=== PATIENT | female | born 1960 | race Caucasian/White ===

== ENCOUNTER 2018-08-07 18:04 | Observation (INO) | payer BC, OTHER ==
[~2018-08-07] VITALS: Ht 170.2 cm; Wt 99.9 kg
--- OUTSIDE RECORDS SUMMARY | 2018-08-07 18:10 | XMS REPORT | Continuity of Care Document ---
Author Author [facility] Organization [facility] Address Unknown Phone Unavailable Care Team Providers Care Extension Service Supervisor Name Role Phone Daniel Wilson MD PCP Unavailable Allergies, Adverse Reactions, Alerts Substance Reaction Severity Status Penicillins rash Unknown Active codeine rash Unknown Active Medications Medication Instructions Dosage Effective Dates (start - stop) Status Comments lisinopril 10 mg tablet take 1 tablet by oral route every day 10 MG 2015 - Active Estrace 0.01% (0.1 mg/gram) vaginal cream insert (1G) by vaginal route 3 times every week 1 G - Active Lumigan 0.01 % eye drops - Active metformin 500 mg tablet take 1 tablet by oral route 2 times every day with morning and evening meals 500 MG - Active Vitamin D2 50,000 unit capsule take 1 capsule by oral route every week 59166 UNITS - Active Taztia XT 240 mg capsule,extended release take 1 capsule by oral route every day 240 MG - Active paroxetine 10 mg tablet take 1 tablet by oral route every day 10 MG 2014 - Active lutein 6 mg tablet - Active Walter Base pellet - Active Problems Condition Effective Dates (start - stop) Clinical Status Abnormal Vaginal Pap, LSIL - Pap Smear Screening, Vagina Abnormal Vaginal Pap, LSIL Abnormal Vaginal Pap, LSIL Abnormal Vaginal Pap, LSIL Abnormal Vaginal Pap, LSIL Pap Smear Screening, Cervix - Hypertension - Active Abnormal Pap, ASCUS - Active Type II Diabetes Active Depression Active Procedures Procedure Date Office/outpatient visit,est, mod Specimen handling/transport Results Test Name Date and Time Measure Units Reference Range Abnormal Flag Comments Panel Description: Cytology report of Cervical or vaginal smear or scraping Cyto stain.thin prep 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 1Patient: MATTY [id number] DATE: 11/14/2017RECEIVED DATE: 11/14/2017REPORTED DATE: 11/18/2017 10:26GYN CYTOLOGY REPORT - HIGH RISK HPV (Final) Page 1 of 1ACCESSION : [id number] DESCRIPTION:.HIGH RISK HPVHIGH RISK HPV RESULT:HIGH RISK HPV NOT DETECTED:Findings: NEGATIVE for the High-Risk HPV types: 16, 18, 31, 33, 35, 39, 45, 51, 52, 56, 58, 59, 66, 68.Testing was performed at [facility], [address] [place] [address] CLIA # [id number].[facility] Cyt[id number] [place] [address] Laboratory Director: RAULITO Deal. [facility] Patient: GUSTAVO CRESPO. Requested by: RCIKEY MCKNIGHT,[facility]-ADHESIVE BONDING MACHINE OPERATOR [id number] [place] [address]- Panel Description: Cytology report of Cervical or vaginal smear or scraping Cyto stain.thin prep ADHESIVE BONDING MACHINE OPERATOR 11:10:00 See Note Patient: GUSTAVO CRESPO : [id number]. Page 1 of 1SPECIMEN DATE: 11/14/2017RECEIVED DATE: 11/14/2017REPORTED DATE: 11/25/2017 11:40GYN CYTOLOGY REPORT (Final) Page 1 of 1ACCESSION: [id number]/RESULTS:ATYPICAL SQUAMOUS CELLS OF UNDETERMINED SIGNIFICANCE (ASC-US).SPECIMEN ADEQUACY:Satisfactory for Evaluation.SPECIMEN DESCRIPTION:LIQUID BASE VAGINAL PAP. WITH AUTOMATED SCREENING (THINPREP IMAGING SYSTEM) AND MANUAL REVIEW.(High Risk HPV testing has been ordered on this specimen.)CLINICAL INFORMATION:Menopause: YHysterectomy : YHormonal [place]: HRTPrev.normal: 11/13/2016 -HPVScreened by: IRENE.Signed out by:.< Sign Out Dr. Siegel>.JOSESITO FULLER MD ph: [phone]. 11/25/2017 11:40. [facility] [address] [facility]. [facility] [id number] Cytology [id number] [facility] [place], [place] [phone] Director: Michelle Waggoner M.D.. 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 [address], [place], [id number], [place]. tel:[phone] Referring Provider: Antonina Rosario [address] [place] [address], [address]. tel:[phone] [facility], [address], [id number], [place] tel: [phone] [facility] Abnormal Vaginal Pap, LSILPap Smear Screening, Cervix Roxanna Hernandez. [address] [place], [address], [place]. tel:[phone] Referring Provider: Antonina Rosario [address] [place] [address], [address]. tel:[phone] [facility], [address] [place] [address], [id number], [place] tel: [phone] [facility] Abnormal Vaginal Pap, LSILAbnormal Vaginal Pap, LSILAbnormal Vaginal Pap, LSILAbnormal Vaginal Pap, LSIL Roxanna Hernandez. [address] [place], [place], [address], [place]. tel:[phone] Referring Provider: Antonina Rosario, [address] [place], [address]. tel:[phone] [facility], [address], [place], [place], [address], [place] tel: [phone] [facility] Kelly Morris. [address] [place], [place], [address], [place]. tel:[phone] [facility], [address], [place], [place], [address], [place] tel: [phone] [facility] Roxanna Hernandez. [address] [place], [place], [address], [place]. tel:[phone] Referring Provider: Antonina Rosario, [address] [place], [address]. tel:[phone] Family History Family Member Diagnosis Age At Onset Paternal Grandmother Cardiovascular Disease No family history of Ovarian Cancer No family history of Epilepsy Father Cardiovascular Disease No family history of Kidney Disease No family history of Colon Cancer No family history of Osteoporosis Father Hypertension Mother Diabetes mellitus Mother Thyroid Disorder Sister Diabetes mellitus No family history of Stroke No family history of Breast Cancer Father Diabetes mellitus Mother Hypertension Brother Hypertension Brother Diabetes mellitus Maternal Grandmother Diabetes mellitus No family history of Lung Disease Immunizations Vaccine Date Status Comments Unknown Payers Payer name Insurance type Covered democrat ID Authorization(s) [facility] [id number] Social History Type Description Quantity Date Captured Alcohol Use Details Caffeine Use Details No Tobacco Use Status Never smoked tobacco Smoking Status Never smoker Non-Smoking Tobacco Use Details : No Details Available : No Details Available Vital Signs Date / Time: Height Weight BMI Pulse Rate Blood Pressure Temperature Respiratory Rate Body Surface Area Head Circumference BMI percentile 10:49 AM 68.00 in 221.00 lbs 33.60 kg/meter(2) 130/90 mm[Hg ] Chief Complaint And Reason For Visit Most recent encounter only, dated '11/14/2017 11:00'. Exam and pap (chief complaint). Description: Patient is here today for exam and pap. She denies any vaginal bleeding. She has occ rectal bleeding. She continues to use Estrace cream. No abdominal or pelvic pain. Nrl bowel and bladder function. Appetite is stable. ASCUS (chief complaint). Description: Initial consult on 10/05/14. Referred by Dr. Rosario for ASCUS pap. Patient had pap smear in 05/03/2010: ASCUS, +HPV, 04/25: neg, 04/30/12: Neg, 05/03/14: ASCUS, cannot exclude HSIL, 09/22/14: Neg. Colposcopy on 05/09/2010: squamous atypia consistent with LSIL. She had TAB/BSO on 06/01/2010: small fragments of squamous atypia. She denies any vaginal or rectal bleeding. No abdominal or pelvic pain. Normal bowel and bladder function. Appetite is stable. She denies any pain or spotting with intercourse. Reason For Referral Reason For Referral Unknown Plan Of Care Date Type Action Status Unknown. Date Type Problem Goal Intervention Status Start Date Unknown. History Of Present Illness Encounter Date Complaint History Of Present Illness ASCUS Initial consult on 10/05/14. Referred by Dr. Rosario for ASCUS pap. Patient had pap smear in 05/03/2010: ASCUS, +HPV, 04/25/11: neg, 04/30: Neg, 05/03/14: ASCUS, cannot exclude HSIL, 09/22/14: Neg. Colposcopy on 2009: squamous atypia consistent with LSIL. She had TAB/BSO on 06/01/2010: small fragments of squamous atypia. She denies any vaginal or rectal bleeding. No abdominal or pelvic pain. Normal bowel and bladder function. Appetite is stable. She denies any pain or spotting with intercourse. Exam and pap Patient is here today for exam and pap. She denies any vaginal bleeding. She has occ rectal bleeding. She continues to use Estrace cream. No abdominal or pelvic pain. Nrl bowel and bladder function. Appetite is stable. Functional Status Encounter Date Functional Assessment Cognitive Assessment Unknown Medications Administered Medication Instructions Dosage Effective Dates (start - stop) Status Comments Drug Treatment Unknown Instructions Date Instruction Additional Information Unknown
--- OUTSIDE RECORDS SUMMARY | 2018-08-07 18:10 | XMS REPORT | Continuity of Care Document ---
Author Author [facility] Organization [facility] Address [address] [place] [id number] Phone Care Team Providers Care Final Inspector Motorcyles Name Role Phone Daniel Wilson MD PCP [...] 1 capsule by oral route every week 52658 UNITS - Active Taztia XT 240 mg capsule,extended release take 1 capsule by oral route every day 240 MG - Active paroxetine 10 mg tablet take 1 tablet by oral route every day 10 MG 2014 - Active lutein 6 mg tablet - Active Walter Base pellet - Active Problems Condition Effective Dates (start - stop) Clinical Status Abnormal Vaginal Pap, LSIL - Abnormal Vaginal Pap, LSIL Abnormal Vaginal Pap, LSIL Abnormal Vaginal Pap, LSIL Abnormal Vaginal Pap, LSIL Pap Smear Screening, Cervix - Pap Smear Screening, Vagina Hypertension - Active Abnormal Pap, ASCUS - Active Type II Diabetes Active Depression Active Procedures Procedure Date Unknown Results Test Name Date and Time Measure Units Reference Range Abnormal Flag Comments Unknown Advance Directives Directive Yes / No Effective Date File Name Unknown Encounters Encounter Description Practice Location Reason(s) For Visit Diagnoses Date Provider Care Team Members [facility], [address], [place], [place], [id number], [place] tel: [phone] [facility] Yobany Hernandez. [address] [place], [id number], [place]. tel:[phone] Referring Provider: Antonina Rosario, [address] [place] [address], [address]. tel:[phone] [facility], [address], [place], [address], [place] tel: [phone] [facility] Pap Smear Screening, Vagina Yobany Hernandez. [address] [place], [place], [address], [place]. tel:[phone] Referring Provider: Antonina Rosario, [address] [place] [address], [address]. tel:[phone] [facility], [address], [place], [place], [address], [place] tel: [phone] [facility] Abnormal Vaginal Pap, LSILPap Smear Screening, Cervix Yobany Hernandez. [address] [place], [place], [address], [place]. tel:[phone] Referring Provider: Antonina Rosario, [address] [place], [address]. tel:[phone] [facility], [address], [place], [place], [address], [place] tel: [phone] [facility] Abnormal Vaginal Pap, LSILAbnormal Vaginal Pap, LSILAbnormal Vaginal Pap, LSILAbnormal Vaginal Pap, LSIL Yobany Hernandez. [address] [place], [place], [address], [place]. tel:[phone] Referring Provider: Antonina Rosario, [address] [place], [address]. tel:[phone] [facility], [address], [place], [place], [address], [place] tel: [phone] [facility] Kelly Morris. [address], [address], [place]. tel:[phone] [facility], [address], [place], [place], [address], [place] tel: [phone] [facility] Yobany Hernandez. [address] [place], [place], [address], [place]. tel:[phone] Referring Provider: Antonina Rosario, [address] [place] [address], [address]. tel:[phone] Family History Family Member Diagnosis Age At [...] Unknown Payers Payer name Insurance type Covered republican ID Authorization(s) [facility] [place] BL [id number] Social History Type Description Quantity Date Captured Unknown Vital Signs Date / Time: Height Weight BMI Pulse Rate Blood Pressure Temperature Respiratory Rate Body Surface Area Head Circumference BMI percentile Unknown Chief Complaint And Reason For Visit Unknown Chief Complaint And Reason For Visit Reason For Referral Reason For Referral Unknown Plan Of Care Date Type Action Status Unknown. Date Type Problem Goal Intervention Status Start Date Unknown. History Of Present Illness Encounter Date Complaint History Of Present Illness This patient has no known history of present illness Functional Status Encounter Date Functional Assessment Cognitive Assessment Unknown Medications Administered Medication Instructions Dosage Effective Dates (start - stop) Status Comments Drug Treatment Unknown Instructions Date Instruction Additional Information Unknown
--- OUTSIDE RECORDS SUMMARY | 2018-08-07 18:10 | XMS REPORT | Continuity of Care Document ---
Author Author [facility] Organization [facility] Address Unknown Phone Unavailable Care Team Providers Care Developer Architect Name Role Phone Daniel Wilson MD PCP [...] 1 capsule by oral route every week 90188 UNITS - Active Taztia XT 240 mg [...] Date Provider Care Team Members [facility], [address], [place], [place], [id number], [place] tel: [phone] [facility] Yobany Hernandez. [address] [place], [place], [address], [place]. tel:[phone] [facility], [address], [place], [place], [address], [place] tel: [phone] [facility] Pap Smear Screening, Vagina Yobany Hernandez. [address] [place], [place], [address], [place]. tel:[phone] Referring Provider: Antonina Rosario, [address] [place] [address], [address]. tel:[phone] [facility], [address], [place], [address], [place] tel: [phone] [facility] Abnormal Vaginal Pap, LSILPap Smear Screening, Cervix Yobany Hernandez. [address] [place], [place], [address], [place]. tel:[phone] Referring Provider: Antonina Rosario, [address] [place], [address]. tel:[phone] [facility], [address], [place], [address], [place] tel: [phone] [facility] Abnormal Vaginal Pap, LSILAbnormal Vaginal Pap, LSILAbnormal Vaginal Pap, LSILAbnormal Vaginal Pap, LSIL Yobany Hernandez. [address] [place], [place], [address], [place]. tel:[phone] Referring Provider: Antonina Rosario, [address] [place] [address], [address]. tel:[phone] [facility], [address], [place], [place], [address], [place] tel: [phone] [facility] Kelly Manzano [address] [place], [place], [address], [place]. tel:[phone] [facility] [facility] [address], [place], [place], [address], [place] tel: [phone] [facility] Yobany Hernandez. [address] [place], [place], [address], [place]. tel:[phone] Referring Provider: Antonina Rosario [address] [place] [address], [address]. tel:[phone] Family History Family Member Diagnosis Age At [...] Unknown Payers Payer name Insurance type Covered green party ID Authorization(s) [facility] [place] BL [id number] Social History Type Description Quantity Date Captured [...]
--- OUTSIDE RECORDS SUMMARY | 2018-08-07 18:10 | XMS REPORT | Clinical Summary ---
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 Active Anna Moy Unspecified endocrine disorder HYPOTHYROIDISM 244.9 Active Anna Moy Unspecified hypothyroidism LONG-TERM (CURRENT) USE OF OTHER MEDICATIONS V58.69 Active 05/29 Anna Moy Long-term (current) use of other medications DIABETES MELLITUS, BORDERLINE 790.29 Active Anna Moy Other abnormal glucose PHARYNGITIS 462 Resolved Daniel Wilson MD Acute pharyngitis DEPRESSION 311 Active Daniel Wilson MD Depressive disorder, not elsewhere classified ENDOCRINE DISEASE 259.9 Active Radha Alvarenga Unspecified endocrine disorder URI 465.9 Resolved Daniel Wilson MD Acute upper respiratory infections of unspecified site FH DIABETES V18.0 Active Radu Snow DO Family history of diabetes mellitus LARYNGITIS, ACUTE 464.00 Resolved Daniel Wilson MD Acute laryngitis without mention of obstruction HYPERTENSION 401.1 Active Daniel Wilson MD Benign essential hypertension OBESITY 278.00 Active Daniel Wilson MD Obesity , unspecified Special screening for osteoporosis V82.81 Active Diana LUA Screening for osteoporosis 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 Daniel Wilson MD Neoplasm of uncertain behavior of skin Onychomycosis, toenails 110.1 Active Daniel Wilson MD Dermatophytosis of nail PHARYNGITIS ICD-462 Inactive Daniel Wilson MD URI ICD-465.9 Inactive Daniel Wilson MD LARYNGITIS, ACUTE ICD-464.00 Inactive Daniel Wilson MD Medication List Medication Instructions Start Date Stop Date Generic Name NDC Status Provider Patient Instruction DILTIAZEM HCL ER 240 MG [id number] 1 daily for high blood pressure DILTIAZEM HCL 76728372578 Active Daniel Wilson MD Active TERBINAFINE HCL 250 MG TABS 1 qDay TERBINAFINE HCL 80760341448 No Longer Active Daniel Wilson MD Active PROGESTERONE (150MCG) TESTOSTERONE (2.5MCG) BI-EST 2MG COMP 1 every evening PROGESTERONE (150MCG) TESTOSTERONE (2.5MCG) BI-EST 2MG COMP Active Daniel Wilson MD Active COMPOUNDED T3 (22.5MCG) AND T4 (95MCG) 1 every morning Active Daniel Wilson MD Active D3-50 66631 UNIT CAPS one capsule once a week CHOLECALCIFEROL 41151844275 Active Daniel Wilson MD Active METFORMIN HCL 500 MG TABS 1 tablet by mouth twice daily METFORMIN HCL 62927213266 Active Daniel Wilson MD Active PROAIR HFA 108 (90 BASE) MCG/ACT AERS 2 puffs four times a day as needed 2012 ALBUTEROL SULFATE 13970772208 Active Daniel Wilson MD Active LUMIGAN 0.03 % SOLN one drop in each eye at night BIMATOPROST 17579975651 Active Daniel Wilson MD Active TESSALON PERLES 100 MG CAP 1 to 2 tablets by mouth 3 times daily as needed for cough BENZONATATE 38405262523 No Longer Active Daniel Wilson MD Active PREDNISONE 20 MG TAB 1 po bid 2 days, then daily for 2 days. 2012 PREDNISONE 57077594140 No Longer Active Daniel Wilson MD Active ATROVENT 0.06 % SOLUTION 1 to 2 sprays each nostril qid prn runny nose 03/05 IPRATROPIUM BROMIDE 09674636638 Active Daniel Wilson MD Active ZITHROMAX Z-LIAM 250 MG TABS 2 today, then 1 daily for 4 days 2011 AZITHROMYCIN 04983299967 No Longer Active Daniel Wilson MD Active PAROXETINE HCL 10 MG TABS 1 PO Q AM PAROXETINE HCL 74378258238 Active Daniel Wilson MD Active PREDNISONE 20 MG TAB 1 po bid 2 days, then daily for 2 days. 2012 PREDNISONE 20 MG TAB 222072 PREDNISONE Inactive TESSALON PERLES 100 MG CAP 1 to 2 tablets by mouth 3 times daily as needed for cough TESSALON PERLES 100 MG CAP 808216 BENZONATATE Inactive ZITHROMAX Z-LIAM 250 MG TABS 2 today, then 1 daily for 4 days 2011 ZITHROMAX Z-LIAM 250 MG TABS 0269214 AZITHROMYCIN Inactive TERBINAFINE HCL 250 MG TABS 1 qDay TERBINAFINE HCL 250 MG TABS 771270 TERBINAFINE HCL Inactive Vital Signs Date Name Value Unit Range Description blood pressure, diastolic - 8462-4 88 mm[Hg] BP mercado blood pressure, systolic - 8480-6 151 mm[Hg] BP sys height E&M - 8302-2 66 [in_us] Bdy height pulse rate E&M - 8867-4 59 /min Heart rate temperature E&M 98.2 [degF] Body temperature weight E&M - 3141-9 212.2 [lb_av] Weight Measured blood pressure, diastolic - 8462-4 103 mm[Hg] BP mercado blood pressure, systolic - 8480-6 153 mm[Hg] BP sys pulse rate E&M - 8867-4 70 /min Heart rate temperature E&M 97.5 [degF] Body temperature weight E&M - 3141-9 211.8 [lb_av] Weight Measured Diagnostic Results Date Name Value Unit Range Description Lab Report: Thyroid Stimulating Hormone (L), Free Thyroxine (L), Glucose - Chemistry TSH 0.74 m[iU]/mL 0.36-3.74 thyroxine, serum, free 0.85 ng/dL 0.76-1.46 blood glucose 86 mg/dL 65-110 Encounters Code Encounter Date Provider Facility CPT-27277 Level 4 Est. Patient 11:11:21 CDT Daniel Wilson MD [facility] CPT-71000 Level 4 Est. Patient 17:38:38 CDT Daniel Wilson MD [facility] CPT-19097 Level 3 Est. Patient 15:33:36 PAYABLE MANAGER Radu Snow DO [facility] CPT-64996 Level 3 Est. Patient 17:50:06 CDT Daniel Wilson MD [facility] CPT-50760 Level 4 Est. Patient 18:11:39 PAYABLE MANAGER Daniel Wilson MD [facility] Procedures Code Procedure Name Date Entry Date Standard Description CPT-LR Lesion Removal 12:04:40 CDT CPT-63787 Venipuncture Draw Fee 08:33:06 CDT CPT-27840 Venipuncture Draw Fee 08:17:56 CDT CPT-76745 Venipuncture Draw Fee 08:17:16 PAYABLE MANAGER CPT-86747 Venipuncture Draw Fee 08:04:18 CDT CPT-10670 Venipuncture Draw Fee 08:39:03 PAYABLE MANAGER
--- OUTSIDE RECORDS SUMMARY | 2018-08-07 18:10 | XMS REPORT | Continuity of Care Document ---
Author Author [facility] Organization [facility] Address Unknown Phone Unavailable Care Team Providers Care Edge Burnisher Name Role Phone Daniel Wilson MD PCP [...] 1 capsule by oral route every week 19890 UNITS - Active Taztia XT 240 mg [...] Date Provider Care Team Members [facility], [address], [place], [place], [address], [place] tel: [phone] [facility] Suzie Esquivel. [address], [address], [place]. tel:[phone] [facility], [address], [place], [place], [address], [place] tel: [phone] [facility] Pap Smear Screening, Vagina Yobany Hernandez. [address], [address], [place]. tel:[phone] Referring Provider: Antonina Rosario, [address] [place] [address], [address]. tel:[phone] [facility], [address], [address], [place] tel: [phone] [facility] Abnormal Vaginal Pap, LSILPap Smear Screening, Cervix Yobany Hernandez. [address], [address], [place]. tel:[phone] Referring Provider: Antonina Rosario, [address] [place], [address]. tel:[phone] [facility], [address], [place], [place], [address], [place] tel: [phone] [facility] Abnormal Vaginal Pap, LSILAbnormal Vaginal Pap, LSILAbnormal Vaginal Pap, LSILAbnormal Vaginal Pap, LSIL Yobany Hernandez. [address], [address], [place]. tel:[phone] Referring Provider: Antonina Rosario, [address] [place] [address], [address]. tel:[phone] [facility], [address], [place], [place], [address], [place] tel: [phone] [facility] Kelly Morris. [address] [place], [place], [address], [place]. tel:[phone] [facility], [address], [place], [place], [address], [place] tel: [phone] [facility] Yobany Hernandez. [address] [place], [place], [address], [place]. tel:[phone] Referring Provider: Antonina Rosario [address] [place] [address], [address]. tel:[phone] Family History Family Member Diagnosis Age At [...] name Insurance type Covered republican ID Authorization(s) [facility] [place] [id number] Social History Type Description Quantity Date Captured [...]
--- OUTSIDE RECORDS SUMMARY | 2018-08-07 18:10 | XMS REPORT | Continuity of Care Document ---
Author Author [facility] Organization [email or web address] Address Unknown Phone Unavailable Care Team Providers Care Site Auditor Name Role Phone Antonina Rosario DO PCP Unavailable Allergies, Adverse Reactions, Alerts Substance [...] 1 capsule by oral route every week 18489 UNITS - Active Taztia XT 240 mg [...] Provider Care Team Members [facility], [address], [place], [place], [address], [place] tel: [phone] [facility] Yobany Hernandez. [address] [place], [place], [address], [place]. tel:[phone] [facility], [address], [place], [place], [address], [place] tel: [phone] [facility] Abnormal Vaginal Pap, LSILPap Smear Screening, Cervix Yobany Hernandez. [address] [place], [place], [address], [place]. tel:[phone] Referring Provider: Antonina Rosario, [address] [place] [address], [address]. tel:[phone] [facility], [address], [place], [place], [address], [place] tel: [phone] [facility] Abnormal Vaginal Pap, LSILAbnormal Vaginal Pap, LSILAbnormal Vaginal Pap, LSILAbnormal Vaginal Pap, LSIL Yobany Hernandez. [address] [place], [address], [place]. tel:[phone] Referring Provider: Antonina Rosario, [address] [place], [address]. tel:[phone] [facility], [address], [place], [place], [address], [place] tel: [phone] [facility] Kelly Morris. [address] [place], [place], [address], [place]. tel:[phone] [facility], [address], [place], [place], [address], [place] tel: [phone] [facility] Yobany Hernandez. [address] [place], [address], [place]. tel:[phone] Referring Provider: Loki Munguia, [place], [address]. tel:[phone] Family History Family Member Diagnosis Age At [...] Unknown Payers Payer name Insurance type Covered alliance party ID Authorization(s) [facility] BL [id number] Social History Type Description Quantity Date Captured Unknown Vital Signs Date / Time: Height Weight BMI Pulse Rate Blood Pressure Temperature Respiratory Rate Body Surface Area Head Circumference BMI percentile Unknown Chief Complaint And Reason For Visit Unknown Chief Complaint And Reason For Visit Reason For Referral Reason For Referral Unknown Plan Of Care Date Type Action Status Appointment Stephanie Crespo BOOKED Date Type Problem Goal Intervention Status Start [...]
--- OUTSIDE RECORDS SUMMARY | 2018-08-07 18:11 | XMS REPORT | Clinical Summary ---
Author Author Admin, GUSTAVO Organization [facility] Address Unknown Phone Unavailable Allergies, Adverse Reactions, Alerts Allergy Name Reaction Description Start Date Severity Status Provider BEE STINGS Critical Active Daniel Wilson MD PCN Critical Active Daniel Wilson MD CODEINE Critical Active Daniel Wilson MD Conditions or Problems Problem Name Problem Code Onset Date Status Entry Date Provider Comment Standard Description Annotate HORMONE DISORDER 259.9 Active Anna Moy LRT Unspecified endocrine disorder HYPOTHYROIDISM 244.9 Active Anna Moy LRT Unspecified hypothyroidism LONG-TERM (CURRENT) USE OF OTHER MEDICATIONS V58.69 Active 05/29 Anna Moy LRT Long-term (current) use of other medications DIABETES MELLITUS, BORDERLINE 790.29 Inactive Anna Moy LRT Other abnormal glucose Prediabetes 790.29 Active Daniel Wilson MD Other abnormal glucose PHARYNGITIS 462 Resolved Daniel [...] Special screening for osteoporosis V82.81 Active Diana Faux RMA Screening for osteoporosis 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 Daniel Wilson MD Neoplasm of uncertain behavior of skin Onychomycosis, toenails 110.1 Active Daniel Wilson MD Dermatophytosis of nail Adult onset diabetes mellitus 250.00 Resolved Daniel Wilson MD Diabetes mellitus without mention of complication, type II or unspecified type, not stated as uncontrolled High risk medication V58.69 Active Diana Faux RMA Long-term (current) use of other medications Screening for hypercholesterolemia V77.91 Active Diana Faux RMA Screening for lipoid disorders Climacteric state V49.81 Active Diana Faux RMA Asymptomatic postmenopausal status (age-related) (natural) Health care maintenance V70.0 Active Rosangela Bundy APRN Routine general medical examination at a health care facility PHARYNGITIS ICD-462 Inactive Daniel Wilson MD URI ICD-465.9 Inactive Daniel Wilson MD LARYNGITIS, ACUTE ICD-464.00 Inactive Daniel Wilson MD Adult onset diabetes mellitus ICD-250.00 Inactive Daniel Wilson MD Medication List Medication Instructions Start Date Stop Date Generic Name NDC Status Provider Patient Instruction NATURE-THROID 146.25 MG ORAL TABS once daily THYROID 22248168309 Active Rosangela Bundy APRN Active TRAVATAN Z 0.004 % OPHTH SOLN 1 drop in each eye nightly TRAVOPROST 37174770012 Active Rosangela Bundy APRN Active ATROVENT 0.06 % SOLUTION 1 to 2 sprays each nostril qid prn runny nose 03/05 IPRATROPIUM BROMIDE 80642333901 No Longer Active Danile Wilson MD Active PROAIR HFA 108 (90 BASE) MCG/ACT AERS 2 puffs four times a day as needed 2012 ALBUTEROL SULFATE 07119284356 No Longer Active Daniel Wilson MD Active PAROXETINE HCL 20 MG TABS 1 daily for depression PAROXETINE HCL 98824982055 Active Rosangela Bundy APRN Active LISINOPRIL-HYDROCHLOROTHIAZIDE 10-12.5 MG TABS 1 every morning for high blood pressure LISINOPRIL-HYDROCHLOROTHIAZIDE 27721025557 Active Rosangela Bundy APRN Active DILTIAZEM HCL ER 240 MG [id number] 1 daily for high blood pressure DILTIAZEM HCL 74339610475 Active Rosangela Bundy APRN Active TERBINAFINE HCL 250 MG TABS 1 qDay TERBINAFINE HCL 39005148725 No Longer Active Daniel Wilson MD Active PROGESTERONE (150MCG) TESTOSTERONE (2.5MCG) BI-EST 2MG COMP 1 every evening PROGESTERONE (150MCG) TESTOSTERONE (2.5MCG) BI-EST 2MG COMP Active Daniel Wilson MD Active COMPOUNDED T3 (22.5MCG) AND T4 (95MCG) 1 every morning No Longer Active Daniel Wilson MD Active D3-50 58363 UNIT CAPS one capsule once a week CHOLECALCIFEROL 18970265246 Active Daniel Wilson MD Active METFORMIN HCL 500 MG TABS 1 tablet by mouth twice daily METFORMIN HCL 03607933956 Active Daniel Wilson MD Active LUMIGAN 0.03 % SOLN one drop in each eye at night BIMATOPROST 88342674458 No Longer Active Daniel Wilson MD Active TESSALON PERLES 100 MG CAP 1 to 2 tablets by mouth 3 times daily as needed for cough BENZONATATE 73383678127 No Longer Active Daniel Wilson MD Active PREDNISONE 20 MG TAB 1 po bid 2 days, then daily for 2 days. 2012 PREDNISONE 90495808121 No Longer Active Daniel Wilson MD Active ZITHROMAX Z-LIAM 250 MG TABS 2 today, then 1 daily for 4 days 2011 AZITHROMYCIN 73561207269 No Longer Active Daniel Wilson MD Active PREDNISONE 20 MG TAB 1 po bid 2 days, then daily for 2 days. 2012 PREDNISONE 20 MG TAB 797363 PREDNISONE Inactive TESSALON PERLES 100 MG CAP 1 to 2 tablets by mouth 3 times daily as needed for cough TESSALON PERLES 100 MG CAP 190341 BENZONATATE Inactive PROAIR HFA 108 (90 BASE) MCG/ACT AERS 2 puffs four times a day as needed 2012 PROAIR HFA 108 (90 BASE) MCG/ACT AERS ALBUTEROL SULFATE Inactive ATROVENT 0.06 % SOLUTION 1 to 2 sprays each nostril qid prn runny nose 03/05 ATROVENT 0.06 % SOLUTION IPRATROPIUM BROMIDE Inactive ZITHROMAX Z-LIAM 250 MG TABS 2 today, then 1 daily for 4 days 2011 ZITHROMAX Z-LIAM 250 MG TABS 9312560 AZITHROMYCIN Inactive TERBINAFINE HCL 250 MG TABS 1 qDay TERBINAFINE HCL 250 MG TABS 121575 TERBINAFINE HCL Inactive Diagnostic Results Date Name Value Unit Range Description Lab Report: CBC (INCLUDES DIFF/PLT)/6399, COMPREHENSIVE METABOLIC PANEL, ... - Chemistry cholesterol, serum 201 mg/dL 598-065 2851/05/08 HDL cholesterol, serum 82 mg/dL > OR=46 triglyceride, serum, fasting 80 mg/dL <150 LDL cholesterol, serum 103 MG/DL (CALC) mg/dL <130 cholesterol/HDL ratio, serum 2.5 (calc) < OR=5.0 testosterone, total 44 ng/dL 2-45 Lab Report: CBC (INCLUDES DIFF/PLT)/6399, COMPREHENSIVE METABOLIC PANEL, ... - Hematology leukocyte count, blood 5.9 THOUSAND/UL 10*3/mm3 3.8-10.8 erythrocyte (RBC) count 4.70 MILLION/UL 10*6/mm3 3.80-5.10 hemoglobin, blood 13.6 g/dL 11.7-15.5 hematocrit, blood 42.2 % 35.0-45.0 mean corpuscular volume, RBC 89.9 fL 80.0-100.0 mean corpuscular hemoglobin, RBC 29.0 pg 27.0-33.0 mean corpuscular hemoglobin concentration, RBC 32.3 G/DL % 32.0- 36.0 red blood cell distribution width 14.7 % 11.0-15.0 platelet count 352 THOUSAND/UL 10*3/mm3 122-940 7893/05/08 mean platelet volume 8.1 fL 7.5-12.5 Lab Report: VITAMIN D, 25-HYDROXY/09363 - Chemistry vitamin D 25-hydroxy, serum 111 ng/mL 30-100 Encounters Code Encounter Date Provider Facility CPT-87689 Level 4 Est. Patient 09:51:42 CDT Daniel Wilson MD [facility] CPT-04363 Level 4 Est. Patient 17:36:45 CDT Daniel Wilson MD [facility] CPT-87192 Level 4 Est. Patient 11:11:21 CDT Daniel Wilson MD [facility] CPT-27636 Level 4 Est. Patient 17:38:38 CDT Daniel Wilson MD [facility] CPT-40933 Level 3 Est. Patient 15:33:36 APPLICATION PROCESSOR Radu Snow DO [facility] CPT-38841 Level 3 Est. Patient 17:50:06 CDT Daniel Wilson MD [facility] CPT-30471 Level 4 Est. Patient 18:11:39 APPLICATION PROCESSOR Daniel Wilson MD [facility] Procedures Code Procedure Name Date Entry Date Standard Description CPT-51894 First Vx - Ix admin via ID IM or jet injects without counseling by physician 13:17:45 CDT CPT-90313 Zostavax Subcutaneous Solution Reconstituted 03213 UNT/0.65ML 11/15 13:17:45 CDT CPT-15255 Venipuncture Draw Fee 10:33:11 CDT CPT-21158 Venipuncture Draw Fee 08:32:33 CDT CPT-LR Lesion Removal 12:04:40 CDT CPT-62764 Venipuncture Draw Fee 08:33:06 CDT CPT-50203 Venipuncture Draw Fee 08:17:56 CDT CPT-91412 Venipuncture Draw Fee 08:17:16 APPLICATION PROCESSOR CPT-47199 Venipuncture Draw Fee 08:04:18 CDT CPT-84158 Venipuncture Draw Fee 08:39:03 APPLICATION PROCESSOR
--- OUTSIDE RECORDS SUMMARY | 2018-08-07 18:11 | XMS REPORT | Clinical Summary ---
Author Author Admin, GUSTAVO Organization [facility] Address Unknown Phone Unavailable Allergies, Adverse Reactions, [...] DIABETES MELLITUS, BORDERLINE 790.29 Active Anna Moy LRT Other abnormal glucose PHARYNGITIS 462 Resolved Daniel [...] Special screening for osteoporosis V82.81 Active Diana Sy [facility] Screening for osteoporosis Neoplasm of uncertain behavior [...] Generic Name NDC Status Provider Patient Instruction PAROXETINE HCL 20 MG TABS 1 daily for depression PAROXETINE HCL 46786002089 Active Daniel Wilson MD Active LISINOPRIL-HYDROCHLOROTHIAZIDE 10-12.5 MG TABS 1 every morning for high blood pressure LISINOPRIL-HYDROCHLOROTHIAZIDE 38739073359 Active Daniel Wilson MD Active DILTIAZEM HCL ER 240 MG [id number] 1 daily for high blood pressure DILTIAZEM HCL 07678917393 Active Daniel Wilson MD Active TERBINAFINE HCL 250 MG TABS 1 qDay TERBINAFINE HCL 53223831562 No Longer Active Daniel Wilson MD Active PROGESTERONE (150MCG) TESTOSTERONE (2.5MCG) BI-EST 2MG COMP 1 every evening PROGESTERONE (150MCG) TESTOSTERONE (2.5MCG) BI-EST 2MG COMP Active Daniel Wilson MD Active COMPOUNDED T3 (22.5MCG) AND T4 (95MCG) 1 every morning Active Daniel Wilson MD Active D3-50 13961 UNIT CAPS one capsule once a week CHOLECALCIFEROL 53116424064 Active Daniel Wilson MD Active METFORMIN HCL 500 MG TABS 1 tablet by mouth twice daily METFORMIN HCL 25363533960 Active Daniel Wilson MD Active PROAIR HFA 108 (90 BASE) MCG/ACT AERS 2 puffs four times a day as needed 2012 ALBUTEROL SULFATE 13553940351 Active Daniel Wilson MD Active LUMIGAN 0.03 % SOLN one drop in each eye at night BIMATOPROST 54048367800 Active Daniel Wilson MD Active TESSALON PERLES 100 MG CAP 1 to 2 tablets by mouth 3 times daily as needed for cough BENZONATATE 01743045117 No Longer Active Daniel Wilson MD Active PREDNISONE 20 MG TAB 1 po bid 2 days, then daily for 2 days. 2012 PREDNISONE 55922610763 No Longer Active Daniel Wilson MD Active ATROVENT 0.06 % SOLUTION 1 to 2 sprays each nostril qid prn runny nose 03/05 IPRATROPIUM BROMIDE 30075906574 Active Daniel Wilson MD Active ZITHROMAX Z-LIAM 250 MG TABS 2 today, then 1 daily for 4 days 2011 AZITHROMYCIN 34763241459 No Longer Active Daniel Wilson MD Active PREDNISONE 20 MG TAB 1 po bid 2 days, then daily for 2 days. 2012 PREDNISONE 20 MG TAB 200184 PREDNISONE Inactive TESSALON PERLES 100 MG CAP 1 to 2 tablets by mouth 3 times daily as needed for cough TESSALON PERLES 100 MG CAP 674529 BENZONATATE Inactive ZITHROMAX Z-LIAM 250 MG TABS 2 today, then 1 daily for 4 days 2011 ZITHROMAX Z-LIAM 250 MG TABS 9760479 AZITHROMYCIN Inactive TERBINAFINE HCL 250 MG TABS 1 qDay TERBINAFINE HCL 250 MG TABS 500191 TERBINAFINE HCL Inactive Vital Signs Date Name Value Unit Range Description blood pressure, diastolic - 8462-4 84 mm[Hg] BP mercado blood pressure, systolic - 8480-6 149 mm[Hg] BP sys pulse rate E&M - 8867-4 64 /min Heart rate temperature E&M 97.1 [degF] Body temperature weight E&M - 3141-9 212.8 [lb_av] Weight Measured Diagnostic Results Date Name Value Unit Range Description Lab Report: HGBA1C - Chemistry hemoglobin A1C, blood, as % of total hemoglobin 5.5 % 4.3-6.0 Lab Report: T3, FREE, ESTRADIOL, PROGESTERONE - Chemistry testosterone, total 50 ng/dL 2-45 Lab Report: Thyroid Stimulating Hormone (L), Free Thyroxine (L), Glucose - Chemistry TSH 0.74 m[iU]/mL 0.36-3.74 thyroxine, serum, free 0.85 ng/dL 0.76-1.46 blood glucose 86 mg/dL 65-110 Encounters Code Encounter Date Provider Facility CPT-19808 Level 4 Est. Patient 17:36:45 CDT Daniel Wilson MD [facility] CPT-15266 Level 4 Est. Patient 11:11:21 CDT Daniel Wilson MD [facility] CPT-47307 Level 4 Est. Patient 17:38:38 CDT Daniel Wilson MD [facility] CPT-05108 Level 3 Est. Patient 15:33:36 AUTOMATION TECHNOLOGIST Radu Snow DO [facility] CPT-16440 Level 3 Est. Patient 17:50:06 CDT Daniel Wilson MD [facility] CPT-56928 Level 4 Est. Patient 18:11:39 AUTOMATION TECHNOLOGIST Daniel Wilson MD [facility] Procedures Code Procedure Name Date Entry Date Standard Description CPT-LR Lesion Removal 12:04:40 CDT CPT-64102 Venipuncture Draw Fee 08:33:06 CDT CPT-59287 Venipuncture Draw Fee 08:17:56 CDT CPT-99433 Venipuncture Draw Fee 08:17:16 AUTOMATION TECHNOLOGIST CPT-87402 Venipuncture Draw Fee 08:04:18 CDT CPT-46265 Venipuncture Draw Fee 08:39:03 AUTOMATION TECHNOLOGIST
--- OUTSIDE RECORDS SUMMARY | 2018-08-07 18:11 | XMS REPORT | Clinical Summary ---
Author Author Admin, [place] [facility] Address Unknown Phone Unavailable Allergies, Adverse Reactions, Alerts Allergy Name Reaction Description Start Date Severity Status Provider BEE STINGS Critical Active Daniel Wilson MD PCN Critical Active Daniel Wilson MD CODEINE Critical Active Daniel Wilson MD Conditions or Problems Problem Name Problem Code Onset Date Status Entry Date Provider Comment Standard Description Annotate HORMONE DISORDER 259.9 Resolved Rosangela Bundy APRN Unspecified endocrine disorder HYPOTHYROIDISM 244.9 Active Anna Winter LRT Unspecified hypothyroidism LONG-TERM (CURRENT) USE OF OTHER MEDICATIONS V58.69 Resolved Rosangela Bundy APRN Long-term (current) use of other medications DIABETES MELLITUS, BORDERLINE 790.29 Inactive Anna GUTIERREZT Other abnormal glucose Prediabetes 790.29 Active Daniel Wilson MD Other abnormal glucose PHARYNGITIS 462 Resolved Daniel Wilson MD Acute pharyngitis DEPRESSION 311 Refinement Daniel Wilson MD Depressive disorder, not elsewhere classified Major depressive disorder, single episode, in full remission 311 Active Daniel Wilson MD Depressive disorder, [...] Wilson MD Benign essential hypertension OBESITY 278.00 Inactive Daniel Wilson MD Obesity, unspecified Obesity (BMI=30-39.9) 278.00 Refinement Rosangela Bundy APRN Obesity, unspecified Other obesity due to excess calories 278.00 Active Daniel Wilson MD Obesity, unspecified Special screening for osteoporosis V82.81 Resolved Rosangela Bundy APRN Screening for osteoporosis Neoplasm of uncertain behavior of skin 238.2 Resolved Rosangela Bundy APRN Neoplasm of uncertain behavior of skin Onychomycosis, toenails 110.1 Resolved Rosangela Bundy APRN Dermatophytosis of nail Adult onset diabetes mellitus 250.00 Resolved Daniel Wilson MD Diabetes mellitus without mention of complication, type II or unspecified type, not stated as uncontrolled High risk medication V58.69 Resolved Rosangela Bundy APRN Long-term (current) use of other medications Screening for hypercholesterolemia V77.91 Resolved Rosangela Bundy APRN Screening for lipoid disorders Climacteric state V49.81 Active Diana LUA Asymptomatic postmenopausal status (age-related) (natural) Health care maintenance V70.0 Active Rosangela Bundy APRN Routine general medical examination at a health care facility Personal history of malignant neoplasm of cervix uteri V10.41 Active Rosangela Bundy APRN Personal history of malignant neoplasm of cervix uteri Never smoked V68.9 Active Rosangela Bundy APRN Encounters for unspecified administrative purpose Open angle glaucoma, bilateral 365.10 Active Rosangela Bundy APRN Open-angle glaucoma, unspecified Body Mass Index 36.0-36.9 Adult Active Daniel Wilson MD Body Mass Index 36.0-36.9, adult HORMONE DISORDER ICD-259.9 Inactive Rosangela Bundy APRN LONG-TERM (CURRENT) USE OF OTHER MEDICATIONS ICD-V58.69 Inactive Rosangela Bundy APRN PHARYNGITIS ICD-462 Inactive Daniel Wilson MD URI ICD-465.9 Inactive Daniel Wilson MD LARYNGITIS, ACUTE ICD-464.00 Inactive Daniel Wilson MD Special screening for osteoporosis ICD-V82.81 Inactive Rosangela Bundy APRN Neoplasm of uncertain behavior of skin ICD-238.2 Inactive Rosangela Bundy APRN Onychomycosis, toenails ICD-110.1 Inactive Rosangela Bundy APRN Adult onset diabetes mellitus ICD-250.00 Inactive Daniel Wilson MD High risk medication ICD-V58.69 Inactive Rosangela Bundy APRN Screening for hypercholesterolemia ICD-V77.91 Inactive Rosangela Bundy APRN Medication List Medication Instructions Start Date Stop Date Generic Name NDC Status Provider Patient Instruction NATURE-THROID 146.25 MG ORAL TABLET once daily THYROID 18117229464 Active Rosangela Bundy APRN Active TRAVATAN Z 0.004 % OPHTHALMIC SOLUTION 1 drop in each eye nightly TRAVOPROST 57911704646 Active Rosangela Bundy APRN Active ATROVENT 0.06 % NASAL SOLUTION 1 to 2 sprays each nostril qid prn runny nose IPRATROPIUM BROMIDE 44457373232 No Longer Active Daniel Wilson MD Active PROAIR HFA 108 (90 Base) MCG/ACT INHALATION AEROSOL SOLUTION 2 puffs four times a day as needed ALBUTEROL SULFATE 77721865458 No Longer Active Daniel Wilson MD Active PAROXETINE HCL 20 MG ORAL TABLET 1 daily for depression PAROXETINE HCL 28897328553 Active Daniel Wilson MD Active LISINOPRIL-HYDROCHLOROTHIAZIDE 10-12.5 MG ORAL TABLET 1 every morning for high blood pressure LISINOPRIL-HYDROCHLOROTHIAZIDE 27430864723 Active Daniel Wilson MD Active DILTIAZEM HCL ER 240 MG ORAL CAPSULE EXTENDED RELEASE 24 HOUR 1 daily for high blood pressure DILTIAZEM HCL 91268182217 Active Daniel Wilson MD Active TERBINAFINE HCL 250 MG ORAL TABLET 1 qDay TERBINAFINE HCL 67216687370 No Longer Active Daniel Wilson MD Active PROGESTERONE (150MCG) TESTOSTERONE (2.5MCG) BI-EST 2MG COMP 1 every evening PROGESTERONE (150MCG) TESTOSTERONE (2.5MCG) BI-EST 2MG COMP Active Daniel Wilson MD Active COMPOUNDED T3 (22.5MCG) AND T4 (95MCG) 1 every morning No Longer Active Daniel Wilson MD Active D3-50 95811 UNIT ORAL CAPSULE one capsule once a week CHOLECALCIFEROL 66134713409 Active Daniel Wilson MD Active METFORMIN HCL 500 MG ORAL TABLET 1 tablet by mouth twice daily METFORMIN HCL 85041189506 Active Daniel Wilson MD Active LUMIGAN 0.03 % SOLN one drop in each eye at night BIMATOPROST 63582228585 No Longer Active Daniel Wilson MD Active TESSALON PERLES 100 MG ORAL CAPSULE 1 to 2 tablets by mouth 3 times daily as needed for cough BENZONATATE 25023987030 No Longer Active Daniel Wilson MD Active PREDNISONE 20 MG ORAL TABLET 1 po bid 2 days, then daily for 2 days. PREDNISONE 22401627735 No Longer Active Daniel Wilson MD Active ZITHROMAX Z-LIAM 250 MG ORAL TABLET 2 today, then 1 daily for 4 days AZITHROMYCIN 32162791416 No Longer Active Daniel Wilson MD Active PREDNISONE 20 MG ORAL TABLET 1 po bid 2 days, then daily for 2 days. PREDNISONE 20 MG ORAL TABLET 926259 PREDNISONE Inactive TESSALON PERLES 100 MG ORAL CAPSULE 1 to 2 tablets by mouth 3 times daily as needed for cough TESSALON PERLES 100 MG ORAL CAPSULE 681698 BENZONATATE Inactive PROAIR HFA 108 (90 Base) MCG/ACT INHALATION AEROSOL SOLUTION 2 puffs four times a day as needed PROAIR HFA 108 (90 Base) MCG/ACT INHALATION AEROSOL SOLUTION ALBUTEROL SULFATE Inactive ATROVENT 0.06 % NASAL SOLUTION 1 to 2 sprays each nostril qid prn runny nose ATROVENT 0.06 % NASAL SOLUTION IPRATROPIUM BROMIDE Inactive ZITHROMAX Z-LIAM 250 MG ORAL TABLET 2 today, then 1 daily for 4 days ZITHROMAX Z-LIAM 250 MG ORAL TABLET 461891 AZITHROMYCIN Inactive TERBINAFINE HCL 250 MG ORAL TABLET 1 qDay TERBINAFINE HCL 250 MG ORAL TABLET 296941 TERBINAFINE HCL Inactive Vital Signs Date Name Value Unit Range Description blood pressure, diastolic, second observation 72 mm[Hg] BP mercado blood pressure, diastolic, repeated by physician 72 BP mercado blood pressure, diastolic 85 mm[Hg] BP mercado blood pressure, systolic, second observation 122 mm[Hg] BP sys blood pressure, systolic, repeated by physician 122 BP sys blood pressure, systolic 145 mm[Hg] BP sys height E&M 66 [in_us] Bdy height pulse rate E&M 69 /min Heart rate temperature E&M 98.3 [degF] Body temperature weight E&M 226 [lb_av] Weight Measured Diagnostic Results Date Name Value Unit Range Description Lab Report: CBC W/DIFF, Comp. Metabolic Panel, HGBA1C, Lipid Panel, Thyr ... - Chemistry sodium, serum 139 mmol/L 602-750 6271/05/10 carbon dioxide, venous blood 28.4 mmol/L 21.0-32.0 potassium, serum 4.6 mmol/L 3.5-5.2 chloride, serum 105 mmol/L 98-107 blood glucose 99 mg/dL 65-95 urea nitrogen, blood 18 mg/dL 7-18 creatinine, serum 0.92 mg/dL 0.60-1.30 alanine aminotransferase (SGPT), serum 31 U/L 12-78 aspartate aminotransferase (SGOT), serum 21 U/L 15-37 calcium, serum 9.7 mg/dL 8.5-10.1 bilirubin, serum, total 0.40 mg/dL 0.00-1.00 hemoglobin A1C, blood, as % of total hemoglobin 5.8 % 4.3-6.0 cholesterol, serum 209 mg/dL 951-053 4857/05/10 triglyceride, serum, fasting 70 mg/dL 30-200 HDL cholesterol, serum 72 mg/dL 32-60 LDL cholesterol, serum 123 mg/dL 0-130 TSH 0.09 m[iU]/mL 0.36-3.74 thyroxine, serum, free 0.86 ng/dL 0.59-1.17 albumin/creatinine ratio, urine <30 mg/g Normal mg/g mg/g{creat} 0-29 Lab Report: CBC W/DIFF, Comp. Metabolic Panel, HGBA1C, Lipid Panel, Thyr ... - Hematology leukocyte count, blood 5.0 10^3/MM^3 10*3/mm3 4.6-10.2 neutrophils as percent of blood leukocytes 55.7 % 42.2-75.2 monocytes as percent of blood leukocytes 9.8 % 1.7-9.3 lymphocytes as percent of blood leukocytes 32.4 % 20.5-51.1 erythrocyte (RBC) count 4.79 10^6/MM^3 10*6/mm3 3.80-5.80 hemoglobin, blood 14.5 g/dL 12.0-16.0 hematocrit, blood 43.4 % 37.0-47.0 mean corpuscular volume, RBC 91 fL 80-97 mean corpuscular hemoglobin, RBC 30.1 pg 27.0-31.2 mean corpuscular hemoglobin concentration, RBC 33.3 G/DL % 31.8- 35.4 red blood cell distribution width 13.0 % 11.6-14.8 platelet count 357 10^3/MM^3 10*3/mm3 142-424 Lab Report: CBC W/DIFF, Comp. Metabolic Panel, HGBA1C, Lipid Panel, Thyr ... - Lab microalbumin, urine 10 mg/L 0-19 Lab Report: VITAMIN D, 25-HYDROXY/85394 - Chemistry vitamin D 25-hydroxy, serum 72 ng/mL 30-100 Encounters Code Encounter Date Provider Facility CPT-58239 [id number] Vst-Est Level IV 17:44:01 CDT Daniel Wilson MD [facility] CPT-35627 Level 4 Est. Patient 22:48:05 CDT Rosangela Bundy APRN [facility] CPT-49389 Level 4 Est. Patient 09:51:42 CDT Daniel Wilson MD [facility] CPT-07439 Level 4 Est. Patient 17:36:45 CDT [facility] CPT-53519 Level 4 Est. Patient 11:11:21 CDT Daniel Wilson MD [facility] CPT-60279 Level 4 Est. Patient 17:38:38 CDT Daniel Wilson MD [facility] CPT-72261 Level 3 Est. Patient 15:33:36 PROJECT DEVELOPMENT COORDINATOR Radu Snow DO [facility] CPT-77170 Level 3 Est. Patient 17:50:06 CDT Daniel Wilson MD [facility] CPT-26988 Level 4 Est. Patient 18:11:39 PROJECT DEVELOPMENT COORDINATOR Daniel Wilson MD [facility] Procedures Code Procedure Name Date Entry Date Standard Description CPT-000 Give Zostavax 12:48:22 CDT CPT-20007 First Vx - Ix admin via ID IM or jet injects without counseling by physician 13:17:45 CDT CPT-60104 Zostavax Subcutaneous Solution Reconstituted 11677 UNT/0.65ML 11/15 13:17:45 CDT CPT-69491 Venipuncture Draw Fee 10:33:11 CDT CPT-12709 Venipuncture Draw Fee 08:32:33 CDT CPT-LR Lesion Removal 12:04:40 CDT CPT-96969 Venipuncture Draw Fee 08:33:06 CDT CPT-55022 Venipuncture Draw Fee 08:17:56 CDT CPT-12620 Venipuncture Draw Fee 08:17:16 PROJECT DEVELOPMENT COORDINATOR CPT-94027 Venipuncture Draw Fee 08:04:18 CDT CPT-44460 Venipuncture Draw Fee 08:39:03 PROJECT DEVELOPMENT COORDINATOR
--- OUTSIDE RECORDS SUMMARY | 2018-08-07 18:12 | XMS REPORT | Clinical Summary ---
Author Author Admin, E Organization [facility] Address Unknown Phone Unavailable Allergies, Adverse [...] Unspecified endocrine disorder HYPOTHYROIDISM 244.9 Active Anna GUTIERREZT Unspecified hypothyroidism LONG-TERM (CURRENT) USE OF OTHER [...] Wilson MD Obesity, unspecified Obesity (BMI=30-39.9) 278.00 Active Rosangela Bundy APRN Obesity, unspecified Special screening for osteoporosis V82.81 [...] Active Rosangela Bundy APRN Open-angle glaucoma, unspecified HORMONE DISORDER ICD-259.9 Inactive Rosangela Bundy APRN [...] 146.25 MG ORAL TABS once daily THYROID 85583559216 Active Rosangela Bundy APRN Active TRAVATAN Z 0.004 % OPHTH SOLN 1 drop in each eye nightly TRAVOPROST 80310898634 Active Rosangela Bundy APRN Active ATROVENT 0.06 % SOLUTION 1 to 2 sprays each nostril qid prn runny nose 03/05 IPRATROPIUM BROMIDE 21066108933 No Longer Active Daniel Wilson MD Active PROAIR HFA 108 (90 BASE) MCG/ACT AERS 2 puffs four times a day as needed 2012 ALBUTEROL SULFATE 50263593987 No Longer Active Daniel Wilson MD Active PAROXETINE HCL 20 MG TABS 1 daily for depression PAROXETINE HCL 27418288839 Active Rosangela Bundy APRN Active LISINOPRIL-HYDROCHLOROTHIAZIDE 10-12.5 MG TABS 1 every morning for high blood pressure LISINOPRIL-HYDROCHLOROTHIAZIDE 82769160947 Active Rosangela Bnudy APRN Active DILTIAZEM HCL ER 240 MG [id number] 1 daily for high blood pressure DILTIAZEM HCL 13429046912 Active Rosangela Bundy APRN Active TERBINAFINE HCL 250 MG TABS 1 qDay TERBINAFINE HCL 28646857147 No Longer Active Daniel Wilson MD Active PROGESTERONE (150MCG) TESTOSTERONE (2.5MCG) BI-EST 2MG COMP 1 every evening PROGESTERONE (150MCG) TESTOSTERONE (2.5MCG) BI-EST 2MG COMP Active Daniel Wilson MD Active COMPOUNDED T3 (22.5MCG) AND T4 (95MCG) 1 every morning No Longer Active Daniel Wilson MD Active D3-50 33745 UNIT CAPS one capsule once a week CHOLECALCIFEROL 65412525507 Active Daniel Wilson MD Active METFORMIN HCL 500 MG TABS 1 tablet by mouth twice daily METFORMIN HCL 59373279177 Active Daniel Wilson MD Active LUMIGAN 0.03 % SOLN one drop in each eye at night BIMATOPROST 52263278702 No Longer Active Daniel Wilson MD Active TESSALON PERLES 100 MG CAP 1 to 2 tablets by mouth 3 times daily as needed for cough BENZONATATE 85184439227 No Longer Active Daniel Wilson MD Active PREDNISONE 20 MG TAB 1 po bid 2 days, then daily for 2 days. 2012 PREDNISONE 65188402132 No Longer Active Daniel Wilson MD Active ZITHROMAX Z-LIAM 250 MG TABS 2 today, then 1 daily for 4 days 2011 AZITHROMYCIN 17155146900 No Longer Active Daniel Wilson MD Active PREDNISONE 20 MG TAB 1 po bid 2 days, then daily for 2 days. 2013 /05/13 PREDNISONE 20 MG TAB 178767 PREDNISONE Inactive TESSALON PERLES 100 MG CAP 1 to 2 tablets by mouth 3 times daily as needed for cough TESSALON PERLES 100 MG CAP 851378 BENZONATATE Inactive PROAIR HFA 108 (90 BASE) [...] days 2011 ZITHROMAX Z-LIAM 250 MG TABS 5411243 AZITHROMYCIN Inactive TERBINAFINE HCL 250 MG TABS 1 qDay TERBINAFINE HCL 250 MG TABS 978996 TERBINAFINE HCL Inactive Vital Signs Date Name Value Unit Range Description blood pressure, diastolic - 8462-4 83 mm[Hg] BP mercado blood pressure, systolic - 8480-6 132 mm[Hg] BP sys height E&M - 8302-2 66 [in_us] Bdy height pulse rate E&M - 8867-4 58 /min Heart rate temperature E&M 96.9 [degF] Body temperature weight E&M - 3141-9 213.5 [lb_av] Weight Measured Diagnostic Results Date Name Value Unit Range Description Lab Report: CBC (INCLUDES DIFF/PLT)/6399, COMPREHENSIVE METABOLIC PANEL, ... - Chemistry cholesterol, serum 201 mg/dL 018-307 6044/05/08 HDL cholesterol, serum 82 mg/dL > OR=46 triglyceride, serum, fasting 80 mg/dL <150 LDL cholesterol, serum 103 MG/DL (CALC) mg/dL <130 cholesterol/HDL ratio, serum 2.5 (calc) < OR=5.0 testosterone, total 44 ng/dL 2-45 Lab Report: CBC (INCLUDES DIFF/PLT)/6399, COMPREHENSIVE METABOLIC PANEL, ... - Hematology mean corpuscular volume, RBC 89.9 fL 80.0-100.0 mean corpuscular hemoglobin, RBC 29.0 pg 27.0-33.0 mean corpuscular hemoglobin concentration, RBC 32.3 G/DL % 32.0- 36.0 red blood cell distribution width 14.7 % 11.0-15.0 platelet count 352 THOUSAND/UL 10*3/mm3 539-170 4584/05/08 mean platelet volume 8.1 fL 7.5-12.5 hematocrit, blood 42.2 % 35.0-45.0 hemoglobin, blood 13.6 g/dL 11.7-15.5 erythrocyte (RBC) count 4.70 MILLION/UL 10*6/mm3 3.80-5.10 leukocyte count, blood 5.9 THOUSAND/UL 10*3/mm3 3.8-10.8 Lab Report: MICROALB/CREAT W/RATIO - Chemistry albumin/creatinine ratio, urine <30 mg/g Normal mg/g mg/g{creat} 0-29 Lab Report: MICROALB/CREAT W/RATIO - Lab microalbumin, urine 10 mg/L 0-19 Lab Report: VITAMIN D, 25-HYDROXY/82426 - Chemistry vitamin D 25-hydroxy, serum 111 ng/mL 30-100 Encounters Code Encounter Date Provider Facility CPT-00972 Level 4 Est. Patient 22:48:05 CDT Rosangela Bundy APRN [facility] CPT-29388 Level 4 Est. Patient 09:51:42 CDT Daniel Wilson MD [facility] CPT-62708 Level 4 Est. Patient 17:36:45 CDT Daniel Wilson MD [facility] CPT-30153 Level 4 Est. Patient 11:11:21 CDT Daniel Wilson MD [facility] CPT-28908 Level 4 Est. Patient 17:38:38 CDT Daniel Wilson MD [facility] CPT-54672 Level 3 Est. Patient 15:33:36 SOLE TACKER Radu Snow DO [facility] CPT-58441 Level 3 Est. Patient 17:50:06 CDT Daniel Wilson MD [facility] CPT-31352 Level 4 Est. Patient 18:11:39 SOLE TACKER Daniel Wilson MD [facility] Procedures Code Procedure Name Date Entry Date Standard Description CPT-41440 First Vx - Ix admin via ID IM or jet injects without counseling by physician 13:17:45 CDT CPT-09015 Zostavax Subcutaneous Solution Reconstituted 62631 UNT/0.65ML 11/15 13:17:45 CDT CPT-52532 Venipuncture Draw Fee 10:33:11 CDT CPT-16893 Venipuncture Draw Fee 08:32:33 CDT CPT-LR Lesion Removal 12:04:40 CDT CPT-55628 Venipuncture Draw Fee 08:33:06 CDT CPT-74101 Venipuncture Draw Fee 08:17:56 CDT CPT-37922 Venipuncture Draw Fee 08:17:16 SOLE TACKER CPT-49130 Venipuncture Draw Fee 08:04:18 CDT CPT-89524 Venipuncture Draw Fee 08:39:03 SOLE TACKER
--- OUTSIDE RECORDS SUMMARY | 2018-08-07 18:12 | XMS REPORT | Clinical Summary ---
Author Author Admin, [place] Organization [facility] Address Unknown Phone Unavailable Allergies, Adverse Reactions, [...] 146.25 MG ORAL TABS once daily THYROID 69194461742 Active Rosangela Bundy APRN Active TRAVATAN Z 0.004 % OPHTH SOLN 1 drop in each eye nightly TRAVOPROST 24811847203 Active Rosangela Bundy APRN Active ATROVENT 0.06 % SOLUTION 1 to 2 sprays each nostril qid prn runny nose 03/05 IPRATROPIUM BROMIDE 36554402770 No Longer Active Daniel Wilson MD Active PROAIR HFA 108 (90 BASE) MCG/ACT AERS 2 puffs four times a day as needed 2012 ALBUTEROL SULFATE 15989323362 No Longer Active Daniel Wilson MD Active PAROXETINE HCL 20 MG TABS 1 daily for depression PAROXETINE HCL 25607153892 Active Rosangela Bundy APRN Active LISINOPRIL-HYDROCHLOROTHIAZIDE 10-12.5 MG TABS 1 every morning for high blood pressure LISINOPRIL-HYDROCHLOROTHIAZIDE 82783218808 Active Rosangela Bundy APRN Active DILTIAZEM HCL ER 240 MG [id number] 1 daily for high blood pressure DILTIAZEM HCL 50157319732 Active Rosangela Bundy APRN Active TERBINAFINE HCL 250 MG TABS 1 qDay TERBINAFINE HCL 09872270853 No Longer Active Daniel Wilson MD Active PROGESTERONE (150MCG) TESTOSTERONE (2.5MCG) BI-EST 2MG COMP 1 every evening PROGESTERONE (150MCG) TESTOSTERONE (2.5MCG) BI-EST 2MG COMP Active Daniel Wilson MD Active COMPOUNDED T3 (22.5MCG) AND T4 (95MCG) 1 every morning No Longer Active Daniel Wilson MD Active D3-50 29330 UNIT CAPS one capsule once a week CHOLECALCIFEROL 30331267517 Active Daniel Wilson MD Active METFORMIN HCL 500 MG TABS 1 tablet by mouth twice daily METFORMIN HCL 22918097783 Active Daniel Wilson MD Active LUMIGAN 0.03 % SOLN one drop in each eye at night BIMATOPROST 88776072999 No Longer Active Daniel Wilson MD Active TESSALON PERLES 100 MG CAP 1 to 2 tablets by mouth 3 times daily as needed for cough BENZONATATE 19140233819 No Longer Active Daniel Wilson MD Active PREDNISONE 20 MG TAB 1 po bid 2 days, then daily for 2 days. 2012 PREDNISONE 44727567671 No Longer Active Daniel Wilson MD Active ZITHROMAX Z-LIAM 250 MG TABS 2 today, then 1 daily for 4 days 2011 AZITHROMYCIN 40559465935 No Longer Active Daniel Wilson MD Active PREDNISONE 20 MG TAB 1 po bid 2 days, then daily for 2 days. 2012 PREDNISONE 20 MG TAB 413444 PREDNISONE Inactive TESSALON PERLES 100 MG CAP 1 to 2 tablets by mouth 3 times daily as needed for cough TESSALON PERLES 100 MG CAP 103899 BENZONATATE Inactive PROAIR HFA 108 (90 BASE) [...] 1 daily for 4 days 2011 ZITHROMAX Z-LIMA 250 MG TABS 4596578 AZITHROMYCIN Inactive TERBINAFINE HCL 250 MG TABS 1 qDay TERBINAFINE HCL 250 MG TABS 301922 TERBINAFINE HCL Inactive Diagnostic Results Date Name Value Unit Range Description Lab Report: CBC (INCLUDES DIFF/PLT)/6399, COMPREHENSIVE METABOLIC PANEL, ... - Chemistry cholesterol, serum 201 mg/dL 373-857 6964/05/08 HDL cholesterol, serum 82 mg/dL > OR=46 [...] % 11.0-15.0 platelet count 352 THOUSAND/UL 10*3/mm3 057-937 6330/05/08 mean platelet volume 8.1 fL 7.5-12.5 Lab Report: MICROALB/CREAT W/RATIO - Chemistry albumin/creatinine ratio, urine <30 mg/g Normal mg/g mg/g{creat} 0-29 Lab Report: MICROALB/CREAT W/RATIO - Lab microalbumin, urine 10 mg/L 0-19 Lab Report: VITAMIN D, 25-HYDROXY/45222 - Chemistry vitamin D 25-hydroxy, serum 111 ng/mL 30-100 Encounters Code Encounter Date Provider Facility CPT-35148 Level 4 Est. Patient 09:51:42 CDT Daniel Wilson MD [facility] CPT-96821 Level 4 Est. Patient 17:36:45 CDT Daniel Wilson MD [facility] CPT-84677 Level 4 Est. Patient 11:11:21 CDT Daniel Wilson MD [facility] CPT-26779 Level 4 Est. Patient 17:38:38 CDT Daniel Wilson MD [facility] CPT-91916 Level 3 Est. Patient 15:33:36 SCHOOL SPEECH LANGUAGE PATHOLOGIST Radu Snow DO [facility] CPT-84887 Level 3 Est. Patient 17:50:06 CDT Daniel Wilson MD [facility] CPT-39225 Level 4 Est. Patient 18:11:39 SCHOOL SPEECH LANGUAGE PATHOLOGIST Daniel Wilson MD [facility] Procedures Code Procedure Name Date Entry Date Standard Description CPT-41118 First Vx - Ix admin via ID IM or jet injects without counseling by physician 13:17:45 CDT CPT-68912 Zostavax Subcutaneous Solution Reconstituted 28327 UNT/0.65ML 11/15 13:17:45 CDT CPT-64854 Venipuncture Draw Fee 10:33:11 CDT CPT-55283 Venipuncture Draw Fee 08:32:33 CDT CPT-LR Lesion Removal 12:04:40 CDT CPT-94578 Venipuncture Draw Fee 08:33:06 CDT CPT-11389 Venipuncture Draw Fee 08:17:56 CDT CPT-49590 Venipuncture Draw Fee 08:17:16 SCHOOL SPEECH LANGUAGE PATHOLOGIST CPT-74153 Venipuncture Draw Fee 08:04:18 CDT CPT-80996 Venipuncture Draw Fee 08:39:03 SCHOOL SPEECH LANGUAGE PATHOLOGIST
--- OUTSIDE RECORDS SUMMARY | 2018-08-07 18:12 | XMS REPORT | Clinical Summary ---
Author Author Admin, SANTINOE Organization 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 Inactive Rosangela Bundy APRN URI ICD-465.9 Inactive Daniel Wilson MD LARYNGITIS, [...] for hypercholesterolemia ICD-V77.91 Inactive Rosangela Bundy APRN PHARYNGITIS ICD-462 Inactive Daniel Wilson MD Medication List Medication Instructions Start Date Stop Date Generic Name NDC Status Provider Patient Instruction NATURE-THROID 146.25 MG ORAL TABLET once daily THYROID 41220659611 Active Rosangela Bundy APRN Active TRAVATAN Z 0.004 % OPHTHALMIC SOLUTION 1 drop in each eye nightly TRAVOPROST 67627382789 Active Rosangela Bundy APRN Active ATROVENT 0.06 % NASAL SOLUTION 1 to 2 sprays each nostril qid prn runny nose IPRATROPIUM BROMIDE 40293183866 No Longer Active Daniel Wilson MD Active PROAIR HFA 108 (90 Base) MCG/ACT INHALATION AEROSOL SOLUTION 2 puffs four times a day as needed ALBUTEROL SULFATE 85263845348 No Longer Active Daniel Wilson MD Active PAROXETINE HCL 20 MG ORAL TABLET 1 daily for depression PAROXETINE HCL 02020892235 Active Daniel Wilson MD Active LISINOPRIL-HYDROCHLOROTHIAZIDE 10-12.5 MG ORAL TABLET 1 every morning for high blood pressure LISINOPRIL-HYDROCHLOROTHIAZIDE 43414809581 Active Daniel Wilson MD Active DILTIAZEM HCL ER 240 MG ORAL CAPSULE EXTENDED RELEASE 24 HOUR 1 daily for high blood pressure DILTIAZEM HCL 50293583898 Active Daniel Wilson MD Active TERBINAFINE HCL 250 MG ORAL TABLET 1 qDay TERBINAFINE HCL 81805870101 No Longer Active Daniel Wilson MD Active PROGESTERONE (150MCG) TESTOSTERONE (2.5MCG) BI-EST 2MG COMP 1 every evening PROGESTERONE (150MCG) TESTOSTERONE (2.5MCG) BI-EST 2MG COMP Active Daniel Wilson MD Active COMPOUNDED T3 (22.5MCG) AND T4 (95MCG) 1 every morning No Longer Active Daniel Wilson MD Active D3-50 05999 UNIT ORAL CAPSULE one capsule once a week CHOLECALCIFEROL 87483261541 Active Daniel Wilson MD Active METFORMIN HCL 500 MG ORAL TABLET 1 tablet by mouth twice daily METFORMIN HCL 64100622733 Active Daniel Wlison MD Active LUMIGAN 0.03 % SOLN one drop in each eye at night BIMATOPROST 24268903291 No Longer Active Daniel Wilson MD Active TESSALON PERLES 100 MG ORAL CAPSULE 1 to 2 tablets by mouth 3 times daily as needed for cough BENZONATATE 54040271604 No Longer Active Daniel Wilson MD Active PREDNISONE 20 MG ORAL TABLET 1 po bid 2 days, then daily for 2 days. PREDNISONE 07834186954 No Longer Active Daniel Wilson MD Active ZITHROMAX Z-LIAM 250 MG ORAL TABLET 2 today, then 1 daily for 4 days AZITHROMYCIN 14085230273 No Longer Active Daniel Wilson MD Active PREDNISONE 20 MG ORAL TABLET 1 po bid 2 days, then daily for 2 days. PREDNISONE 20 MG ORAL TABLET 142881 PREDNISONE Inactive TESSALON PERLES 100 MG ORAL CAPSULE 1 to 2 tablets by mouth 3 times daily as needed for cough TESSALON PERLES 100 MG ORAL CAPSULE 157881 BENZONATATE Inactive PROAIR HFA 108 (90 Base) [...] days ZITHROMAX Z-LIAM 250 MG ORAL TABLET 121925 AZITHROMYCIN Inactive TERBINAFINE HCL 250 MG ORAL TABLET 1 qDay TERBINAFINE HCL 250 MG ORAL TABLET 447978 TERBINAFINE HCL Inactive Vital Signs Date Name [...] ... - Chemistry sodium, serum 139 mmol/L 032-774 8215/05/10 carbon dioxide, venous blood 28.4 mmol/L 21.0-32.0 [...] 5.8 % 4.3-6.0 cholesterol, serum 209 mg/dL 271-889 9387/05/10 triglyceride, serum, fasting 70 mg/dL 30-200 HDL [...] 10 mg/L 0-19 Lab Report: VITAMIN D, 25-HYDROXY/99665 - Chemistry vitamin D 25-hydroxy, serum 72 ng/mL 30-100 Encounters Code Encounter Date Provider Facility CPT-34689 [id number] Vst-Est Level IV 17:44:01 CDT Daniel Wilson MD [facility] CPT-36556 Level 4 Est. Patient 22:48:05 CDT Rosangela Bundy APRN [facility] CPT-50221 Level 4 Est. Patient 09:51:42 CDT Daniel Wilson MD [facility] CPT-77151 Level 4 Est. Patient 17:36:45 CDT Daniel Wilson MD [facility] CPT-95293 Level 4 Est. Patient 11:11:21 CDT Daniel Wilson MD [facility] CPT-40687 Level 4 Est. Patient 17:38:38 CDT Daniel Wilson MD [facility] CPT-84712 Level 3 Est. Patient 15:33:36 PHOTOGRAPHER HELPER Radu Snow DO [facility] CPT-06915 Level 3 Est. Patient 17:50:06 CDT Daniel Wilson MD [facility] CPT-02259 Level 4 Est. Patient 18:11:39 PHOTOGRAPHER HELPER Daniel Wilson MD [facility] Procedures Code Procedure Name Date Entry Date Standard Description CPT-000 Give Zostavax 12:48:22 CDT CPT-92341 First Vx - Ix admin via ID IM or jet injects without counseling by physician 13:17:45 CDT CPT-01937 Zostavax Subcutaneous Solution Reconstituted 04819 UNT/0.65ML 11/15 13:17:45 CDT CPT-81219 Venipuncture Draw Fee 10:33:11 CDT CPT-73553 Venipuncture Draw Fee 08:32:33 CDT CPT-LR Lesion Removal 12:04:40 CDT CPT-99827 Venipuncture Draw Fee 08:33:06 CDT CPT-76119 Venipuncture Draw Fee 08:17:56 CDT CPT-80248 Venipuncture Draw Fee 08:17:16 PHOTOGRAPHER HELPER CPT-17752 Venipuncture Draw Fee 08:04:18 CDT CPT-65964 Venipuncture Draw Fee 08:39:03 PHOTOGRAPHER HELPER
--- OUTSIDE RECORDS SUMMARY | 2018-08-07 18:13 | XMS REPORT | Clinical Summary ---
Author Author Admin, SANTINOE Organization [facility] Address Unknown Phone Unavailable Allergies, [...] 146.25 MG ORAL TABLET once daily THYROID 95477526631 Active Rosangela Bundy APRN Active TRAVATAN Z 0.004 % OPHTHALMIC SOLUTION 1 drop in each eye nightly TRAVOPROST 35504318514 Active Rosangela Bundy APRN Active ATROVENT 0.06 % NASAL SOLUTION 1 to 2 sprays each nostril qid prn runny nose IPRATROPIUM BROMIDE 94456320100 No Longer Active Daniel Wilson MD Active PROAIR HFA 108 (90 Base) MCG/ACT INHALATION AEROSOL SOLUTION 2 puffs four times a day as needed ALBUTEROL SULFATE 55905581390 No Longer Active Daniel Wilson MD Active PAROXETINE HCL 20 MG ORAL TABLET 1 daily for depression PAROXETINE HCL 17594723853 Active Daniel Wilson MD Active LISINOPRIL-HYDROCHLOROTHIAZIDE 10-12.5 MG ORAL TABLET 1 every morning for high blood pressure LISINOPRIL-HYDROCHLOROTHIAZIDE 25059134521 Active Daniel Wilson MD Active DILTIAZEM HCL ER 240 MG ORAL CAPSULE EXTENDED RELEASE 24 HOUR 1 daily for high blood pressure DILTIAZEM HCL 30211215529 Active Daniel Wilson MD Active TERBINAFINE HCL 250 MG ORAL TABLET 1 qDay TERBINAFINE HCL 08016435590 No Longer Active Daniel Wilson MD Active PROGESTERONE (150MCG) TESTOSTERONE (2.5MCG) BI-EST 2MG COMP 1 every evening PROGESTERONE (150MCG) TESTOSTERONE (2.5MCG) BI-EST 2MG COMP Active Daniel Wilson MD Active COMPOUNDED T3 (22.5MCG) AND T4 (95MCG) 1 every morning No Longer Active Daniel Wilson MD Active D3-50 99986 UNIT ORAL CAPSULE one capsule once a week CHOLECALCIFEROL 63335568985 Active Daniel Wilson MD Active METFORMIN HCL 500 MG ORAL TABLET 1 tablet by mouth twice daily METFORMIN HCL 66214183097 Active Daniel Wilson MD Active LUMIGAN 0.03 % SOLN one drop in each eye at night BIMATOPROST 38614907059 No Longer Active Daniel Wilson MD Active TESSALON PERLES 100 MG ORAL CAPSULE 1 to 2 tablets by mouth 3 times daily as needed for cough BENZONATATE 57818389749 No Longer Active Daniel Wilson MD Active PREDNISONE 20 MG ORAL TABLET 1 po bid 2 days, then daily for 2 days. PREDNISONE 21084782541 No Longer Active Daniel Wilson MD Active ZITHROMAX Z-LIAM 250 MG ORAL TABLET 2 today, then 1 daily for 4 days AZITHROMYCIN 89525366156 No Longer Active Daniel Wilson MD Active PREDNISONE 20 MG ORAL TABLET 1 po bid 2 days, then daily for 2 days. PREDNISONE 20 MG ORAL TABLET 251356 PREDNISONE Inactive TESSALON PERLES 100 MG ORAL CAPSULE 1 to 2 tablets by mouth 3 times daily as needed for cough TESSALON PERLES 100 MG ORAL CAPSULE 004735 BENZONATATE Inactive PROAIR HFA 108 (90 Base) [...] days ZITHROMAX Z-LIAM 250 MG ORAL TABLET 481622 AZITHROMYCIN Inactive TERBINAFINE HCL 250 MG ORAL TABLET 1 qDay TERBINAFINE HCL 250 MG ORAL TABLET 182217 TERBINAFINE HCL Inactive Vital Signs Date Name [...] ... - Chemistry sodium, serum 139 mmol/L 528-813 8105/05/10 carbon dioxide, venous blood 28.4 mmol/L 21.0-32.0 [...] 5.8 % 4.3-6.0 cholesterol, serum 209 mg/dL 310-567 0077/05/10 triglyceride, serum, fasting 70 mg/dL 30-200 HDL [...] 10 mg/L 0-19 Lab Report: VITAMIN D, 25-HYDROXY/29164 - Chemistry vitamin D 25-hydroxy, serum 72 ng/mL 30-100 Encounters Code Encounter Date Provider Facility CPT-59013 [id number] Vst-Est Level IV 17:44:01 CDT Daniel Wilson MD [facility] CPT-81357 Level 4 Est. Patient 22:48:05 CDT Rosangela Bundy APRN [facility] CPT-50561 Level 4 Est. Patient 09:51:42 CDT Daniel Wilson MD [facility] CPT-58565 Level 4 Est. Patient 17:36:45 CDT Daniel Wilson MD [facility] CPT-60784 Level 4 Est. Patient 11:11:21 CDT Daniel Wilson MD [facility] CPT-66630 Level 4 Est. Patient 17:38:38 CDT Daniel Wilson MD [facility] CPT-75140 Level 3 Est. Patient 15:33:36 GAS ENGINE PERFORMANCE ENGINEER Radu Snow DO [facility] CPT-00817 Level 3 Est. Patient 17:50:06 CDT Daniel Wilson MD [facility] CPT-93249 Level 4 Est. Patient 18:11:39 GAS ENGINE PERFORMANCE ENGINEER Daniel Wilson MD [facility] Procedures Code Procedure Name Date Entry Date Standard Description CPT-000 Give Zostavax 12:48:22 CDT CPT-62972 First Vx - Ix admin via ID IM or jet injects without counseling by physician 13:17:45 CDT CPT-42614 Zostavax Subcutaneous Solution Reconstituted 18526 UNT/0.65ML 11/15 13:17:45 CDT CPT-32743 Venipuncture Draw Fee 10:33:11 CDT CPT-31949 Venipuncture Draw Fee 08:32:33 CDT CPT-LR Lesion Removal 12:04:40 CDT CPT-64824 Venipuncture Draw Fee 08:33:06 CDT CPT-72544 Venipuncture Draw Fee 08:17:56 CDT CPT-84696 Venipuncture Draw Fee 08:17:16 GAS ENGINE PERFORMANCE ENGINEER CPT-99925 Venipuncture Draw Fee 08:04:18 CDT CPT-79209 Venipuncture Draw Fee 08:39:03 GAS ENGINE PERFORMANCE ENGINEER
--- OUTSIDE RECORDS SUMMARY | 2018-08-07 18:13 | XMS REPORT | Clinical Summary ---
Author Author Admin, SANTINOE Organization [facility] Address Unknown Phone Unavailable Allergies, [...] Other abnormal glucose PHARYNGITIS 462 Resolved Daniel Wislon MD Acute pharyngitis DEPRESSION 311 Refinement Daniel [...] (age-related) (natural) Health care maintenance V70.0 Active Rosanglea Bundy APRN Routine general medical examination at [...] 146.25 MG ORAL TABLET once daily THYROID 33112383709 Active Rosangela Bundy APRN Active TRAVATAN Z 0.004 % OPHTHALMIC SOLUTION 1 drop in each eye nightly TRAVOPROST 91666066270 Active Rosangela Bundy APRN Active ATROVENT 0.06 % NASAL SOLUTION 1 to 2 sprays each nostril qid prn runny nose IPRATROPIUM BROMIDE 63374354854 No Longer Active Daniel Wilson MD Active PROAIR HFA 108 (90 Base) MCG/ACT INHALATION AEROSOL SOLUTION 2 puffs four times a day as needed ALBUTEROL SULFATE 88227528773 No Longer Active Daniel Wilson MD Active PAROXETINE HCL 20 MG ORAL TABLET 1 daily for depression PAROXETINE HCL 73303038524 Active Daniel Wilson MD Active LISINOPRIL-HYDROCHLOROTHIAZIDE 10-12.5 MG ORAL TABLET 1 every morning for high blood pressure LISINOPRIL-HYDROCHLOROTHIAZIDE 18837928661 Active Daniel Wilson MD Active DILTIAZEM HCL ER 240 MG ORAL CAPSULE EXTENDED RELEASE 24 HOUR 1 daily for high blood pressure DILTIAZEM HCL 67092954733 Active Daniel Wilson MD Active TERBINAFINE HCL 250 MG ORAL TABLET 1 qDay TERBINAFINE HCL 33710000624 No Longer Active Daniel Wilson MD Active PROGESTERONE (150MCG) TESTOSTERONE (2.5MCG) BI-EST 2MG COMP 1 every evening PROGESTERONE (150MCG) TESTOSTERONE (2.5MCG) BI-EST 2MG COMP Active Daniel iWlson MD Active COMPOUNDED T3 (22.5MCG) AND T4 (95MCG) 1 every morning No Longer Active Daniel Wilson MD Active D3-50 63597 UNIT ORAL CAPSULE one capsule once a week CHOLECALCIFEROL 91178953099 Active Daniel Wilson MD Active METFORMIN HCL 500 MG ORAL TABLET 1 tablet by mouth twice daily METFORMIN HCL 49451975553 Active Daniel Wilson MD Active LUMIGAN 0.03 % SOLN one drop in each eye at night BIMATOPROST 33645091353 No Longer Active Daniel Wilson MD Active TESSALON PERLES 100 MG ORAL CAPSULE 1 to 2 tablets by mouth 3 times daily as needed for cough BENZONATATE 87787896311 No Longer Active Daniel Wilson MD Active PREDNISONE 20 MG ORAL TABLET 1 po bid 2 days, then daily for 2 days. PREDNISONE 54972975602 No Longer Active Daniel Wilson MD Active ZITHROMAX Z-LIAM 250 MG ORAL TABLET 2 today, then 1 daily for 4 days AZITHROMYCIN 93563360834 No Longer Active Daniel Wilson MD Active PREDNISONE 20 MG ORAL TABLET 1 po bid 2 days, then daily for 2 days. PREDNISONE 20 MG ORAL TABLET 863414 PREDNISONE Inactive TESSALON PERLES 100 MG ORAL CAPSULE 1 to 2 tablets by mouth 3 times daily as needed for cough TESSALON PERLES 100 MG ORAL CAPSULE 066614 BENZONATATE Inactive PROAIR HFA 108 (90 Base) [...] days ZITHROMAX Z-LIAM 250 MG ORAL TABLET 493028 AZITHROMYCIN Inactive TERBINAFINE HCL 250 MG ORAL TABLET 1 qDay TERBINAFINE HCL 250 MG ORAL TABLET 980136 TERBINAFINE HCL Inactive Vital Signs Date Name [...] ... - Chemistry sodium, serum 139 mmol/L 436-764 4171/05/10 carbon dioxide, venous blood 28.4 mmol/L 21.0-32.0 [...] 5.8 % 4.3-6.0 cholesterol, serum 209 mg/dL 536-456 8680/05/10 triglyceride, serum, fasting 70 mg/dL 30-200 HDL [...] 10 mg/L 0-19 Lab Report: VITAMIN D, 25-HYDROXY/77890 - Chemistry vitamin D 25-hydroxy, serum 72 ng/mL 30-100 Encounters Code Encounter Date Provider Facility CPT-03827 [id number] Vst-Est Level IV 17:44:01 CDT Daniel Wilson MD [facility] CPT-68274 Level 4 Est. Patient 22:48:05 CDT Rosangela Bundy APRN [facility] CPT-64325 Level 4 Est. Patient 09:51:42 CDT Daniel Wilson MD [facility] CPT-18173 Level 4 Est. Patient 17:36:45 CDT Daniel Wilson MD [facility] CPT-57271 Level 4 Est. Patient 11:11:21 CDT Daniel Wilson MD [facility] CPT-03340 Level 4 Est. Patient 17:38:38 CDT Daniel Wilson MD [facility] CPT-73740 Level 3 Est. Patient 15:33:36 TANK CARPENTER Radu Snow DO [facility] CPT-31405 Level 3 Est. Patient 17:50:06 CDT Daniel Wilson MD [facility] CPT-73345 Level 4 Est. Patient 18:11:39 TANK CARPENTER Daniel Wilson MD [facility] Procedures Code Procedure Name Date Entry Date Standard Description CPT-000 Give Zostavax 12:48:22 CDT CPT-35312 First Vx - Ix admin via ID IM or jet injects without counseling by physician 13:17:45 CDT CPT-86359 Zostavax Subcutaneous Solution Reconstituted 19672 UNT/0.65ML 11/15 13:17:45 CDT CPT-09845 Venipuncture Draw Fee 10:33:11 CDT CPT-00501 Venipuncture Draw Fee 08:32:33 CDT CPT-LR Lesion Removal 12:04:40 CDT CPT-23554 Venipuncture Draw Fee 08:33:06 CDT CPT-67088 Venipuncture Draw Fee 08:17:56 CDT CPT-92733 Venipuncture Draw Fee 08:17:16 TANK CARPENTER CPT-70344 Venipuncture Draw Fee 08:04:18 CDT CPT-30250 Venipuncture Draw Fee 08:39:03 TANK CARPENTER
--- OUTSIDE RECORDS SUMMARY | 2018-08-07 18:13 | XMS REPORT | Clinical Summary ---
Author Author Admin, SANTINOE Organization [facility] Address Unknown Phone Unavailable Allergies, Adverse Reactions, [...] medications DIABETES MELLITUS, BORDERLINE 790.29 Inactive Anna ALICIA Other abnormal glucose Prediabetes 790.29 Active Daniel [...] 146.25 MG ORAL TABLET once daily THYROID 20710699672 Active Rosangela Bundy APRN Active TRAVATAN Z 0.004 % OPHTHALMIC SOLUTION 1 drop in each eye nightly TRAVOPROST 12209690202 Active Rosangela Bundy APRN Active ATROVENT 0.06 % NASAL SOLUTION 1 to 2 sprays each nostril qid prn runny nose IPRATROPIUM BROMIDE 24954384230 No Longer Active Daniel Wilson MD Active PROAIR HFA 108 (90 Base) MCG/ACT INHALATION AEROSOL SOLUTION 2 puffs four times a day as needed ALBUTEROL SULFATE 74146444569 No Longer Active Daniel Wilson MD Active PAROXETINE HCL 20 MG ORAL TABLET 1 daily for depression PAROXETINE HCL 16174901719 Active Maya Mcdaniel MA Active LISINOPRIL-HYDROCHLOROTHIAZIDE 10-12.5 MG ORAL TABLET 1 every morning for high blood pressure LISINOPRIL-HYDROCHLOROTHIAZIDE 47275383379 Active Maya Mcdaniel MA Active DILTIAZEM HCL ER 240 MG ORAL CAPSULE EXTENDED RELEASE 24 HOUR 1 daily for high blood pressure DILTIAZEM HCL 91146341102 Active Maya Mcdaniel MA Active TERBINAFINE HCL 250 MG ORAL TABLET 1 qDay TERBINAFINE HCL 86165407098 No Longer Active Daniel Wilson MD Active PROGESTERONE (150MCG) TESTOSTERONE (2.5MCG) BI-EST 2MG COMP 1 every evening PROGESTERONE (150MCG) TESTOSTERONE (2.5MCG) BI-EST 2MG COMP Active Daniel Wilson MD Active COMPOUNDED T3 (22.5MCG) AND T4 (95MCG) 1 every morning No Longer Active Daniel Wilson MD Active D3-50 23670 UNIT ORAL CAPSULE one capsule once a week CHOLECALCIFEROL 22733133425 Active Daniel Wilson MD Active METFORMIN HCL 500 MG ORAL TABLET 1 tablet by mouth twice daily METFORMIN HCL 47432744102 Active Daniel Wilson MD Active LUMIGAN 0.03 % SOLN one drop in each eye at night BIMATOPROST 29253478077 No Longer Active Daniel Wilson MD Active TESSALON PERLES 100 MG ORAL CAPSULE 1 to 2 tablets by mouth 3 times daily as needed for cough BENZONATATE 83518884732 No Longer Active Daniel Wilson MD Active PREDNISONE 20 MG ORAL TABLET 1 po bid 2 days, then daily for 2 days. PREDNISONE 54390116467 No Longer Active Daniel Wilson MD Active ZITHROMAX Z-LIAM 250 MG ORAL TABLET 2 today, then 1 daily for 4 days AZITHROMYCIN 38770387677 No Longer Active Daniel Wilson MD Active PREDNISONE 20 MG ORAL TABLET 1 po bid 2 days, then daily for 2 days. PREDNISONE 20 MG ORAL TABLET 821967 PREDNISONE Inactive TESSALON PERLES 100 MG ORAL CAPSULE 1 to 2 tablets by mouth 3 times daily as needed for cough TESSALON PERLES 100 MG ORAL CAPSULE 364038 BENZONATATE Inactive PROAIR HFA 108 (90 Base) [...] days ZITHROMAX Z-LIAM 250 MG ORAL TABLET 643296 AZITHROMYCIN Inactive TERBINAFINE HCL 250 MG ORAL TABLET 1 qDay TERBINAFINE HCL 250 MG ORAL TABLET 209063 TERBINAFINE HCL Inactive Diagnostic Results Date Name Value Unit Range Description Lab Report: CBC W/DIFF, Comp. Metabolic Panel, HGBA1C, Lipid Panel, Thyr ... - Chemistry sodium, serum 139 mmol/L 400-704 6068/05/10 carbon dioxide, venous blood 28.4 mmol/L 21.0-32.0 [...] 5.8 % 4.3-6.0 cholesterol, serum 209 mg/dL 094-292 9676/05/10 triglyceride, serum, fasting 70 mg/dL 30-200 HDL [...] 10 mg/L 0-19 Lab Report: VITAMIN D, 25-HYDROXY/29065 - Chemistry vitamin D 25-hydroxy, serum 72 ng/mL 30-100 Encounters Code Encounter Date Provider Facility CPT-20167 Level 4 Est. Patient 22:48:05 CDT Rosangela Bundy APRN [facility] CPT-89078 Level 4 Est. Patient 09:51:42 CDT Daniel Wilson MD [facility] CPT-98487 Level 4 Est. Patient 17:36:45 CDT Daniel Wilson MD [facility] CPT-37233 Level 4 Est. Patient 11:11:21 CDT Daniel Wilson MD [facility] CPT-73946 Level 4 Est. Patient 17:38:38 CDT Daniel Wilson MD [facility] CPT-22517 Level 3 Est. Patient 15:33:36 MACHINE SHOP HELPER Radu Snow DO [facility] CPT-92442 Level 3 Est. Patient 17:50:06 CDT Daniel Wilson MD [facility] CPT-62807 Level 4 Est. Patient 18:11:39 MACHINE SHOP HELPER Daniel Wilson MD [facility] Procedures Code Procedure Name Date Entry Date Standard Description CPT-000 Give Zostavax 12:48:22 CDT CPT-21839 First Vx - Ix admin via ID IM or jet injects without counseling by physician 13:17:45 CDT CPT-62031 Zostavax Subcutaneous Solution Reconstituted 21327 UNT/0.65ML 11/15 13:17:45 CDT CPT-26287 Venipuncture Draw Fee 10:33:11 CDT CPT-87585 Venipuncture Draw Fee 08:32:33 CDT CPT-LR Lesion Removal 12:04:40 CDT CPT-01390 Venipuncture Draw Fee 08:33:06 CDT CPT-51200 Venipuncture Draw Fee 08:17:56 CDT CPT-13562 Venipuncture Draw Fee 08:17:16 MACHINE SHOP HELPER CPT-13970 Venipuncture Draw Fee 08:04:18 CDT CPT-73039 Venipuncture Draw Fee 08:39:03 MACHINE SHOP HELPER
--- OUTSIDE RECORDS SUMMARY | 2018-08-07 18:14 | XMS REPORT | Clinical Summary ---
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 Daneil Wilson MD Neoplasm of uncertain behavior of skin Onychomycosis, toenails 110.1 Active Daniel Wilson MD Dermatophytosis of nail PHARYNGITIS ICD-462 Inactive Daniel Wilson MD URI ICD-465.9 Inactive Daniel Wilson MD LARYNGITIS, ACUTE ICD-464.00 Inactive Daniel Wilson MD Medication List Medication Instructions Start Date Stop Date Generic Name NDC Status Provider Patient Instruction DILTIAZEM HCL ER 240 MG [id number] 1 daily for high blood pressure DILTIAZEM HCL 83366518447 Active Daniel Wilson MD Active TERBINAFINE HCL 250 MG TABS 1 qDay TERBINAFINE HCL 18655416077 No Longer Active Daniel Wilson MD Active PROGESTERONE (150MCG) TESTOSTERONE (2.5MCG) BI-EST 2MG COMP 1 every evening PROGESTERONE (150MCG) TESTOSTERONE (2.5MCG) BI-EST 2MG COMP Active Daniel Wilson MD Active COMPOUNDED T3 (22.5MCG) AND T4 (95MCG) 1 every morning Active Daniel Wilson MD Active D3-50 56796 UNIT CAPS one capsule once a week CHOLECALCIFEROL 40263890768 Active Daniel Wilson MD Active METFORMIN HCL 500 MG TABS 1 tablet by mouth twice daily METFORMIN HCL 26543356075 Active Daniel Wilson MD Active PROAIR HFA 108 (90 BASE) MCG/ACT AERS 2 puffs four times a day as needed 2012 ALBUTEROL SULFATE 38219258779 Active Daniel Wilson MD Active LUMIGAN 0.03 % SOLN one drop in each eye at night BIMATOPROST 42523434790 Active Daniel Wilson MD Active TESSALON PERLES 100 MG CAP 1 to 2 tablets by mouth 3 times daily as needed for cough BENZONATATE 24226096548 No Longer Active Daniel Wilson MD Active PREDNISONE 20 MG TAB 1 po bid 2 days, then daily for 2 days. 2012 PREDNISONE 18954778058 No Longer Active Daniel Wilson MD Active ATROVENT 0.06 % SOLUTION 1 to 2 sprays each nostril qid prn runny nose 03/05 IPRATROPIUM BROMIDE 28339747373 Active Daniel Wilson MD Active ZITHROMAX Z-LIAM 250 MG TABS 2 today, then 1 daily for 4 days 2011 AZITHROMYCIN 29817021363 No Longer Active Daniel Wilson MD Active PAROXETINE HCL 10 MG TABS 1 PO Q AM PAROXETINE HCL 65020005258 Active Daniel Wilson MD Active PREDNISONE 20 MG TAB 1 po bid 2 days, then daily for 2 days. 2012 PREDNISONE 20 MG TAB 996857 PREDNISONE Inactive TESSALON PERLES 100 MG CAP 1 to 2 tablets by mouth 3 times daily as needed for cough TESSALON PERLES 100 MG CAP 537085 BENZONATATE Inactive ZITHROMAX Z-LIAM 250 MG TABS 2 today, then 1 daily for 4 days 2011 ZITHROMAX Z-LIAM 250 MG TABS 3612631 AZITHROMYCIN Inactive TERBINAFINE HCL 250 MG TABS 1 qDay TERBINAFINE HCL 250 MG TABS 582896 TERBINAFINE HCL Inactive Vital Signs Date Name [...] 65-110 Encounters Code Encounter Date Provider Facility CPT-35128 Level 4 Est. Patient 11:11:21 CDT Daniel Wilson MD [facility] CPT-51198 Level 4 Est. Patient 17:38:38 CDT Daniel Wilson MD [facility] CPT-98532 Level 3 Est. Patient 15:33:36 TECHNICIAN SUPPORT ENGINEER Radu Snow DO [facility] CPT-71276 Level 3 Est. Patient 17:50:06 CDT Daniel Wilson MD [facility] CPT-85859 Level 4 Est. Patient 18:11:39 TECHNICIAN SUPPORT ENGINEER Daniel Wilson MD [facility] Procedures Code Procedure Name Date Entry Date Standard Description CPT-LR Lesion Removal 12:04:40 CDT CPT-31485 Venipuncture Draw Fee 08:33:06 CDT CPT-59624 Venipuncture Draw Fee 08:17:56 CDT CPT-45818 Venipuncture Draw Fee 08:17:16 TECHNICIAN SUPPORT ENGINEER CPT-06870 Venipuncture Draw Fee 08:04:18 CDT CPT-00967 Venipuncture Draw Fee 08:39:03 TECHNICIAN SUPPORT ENGINEER
--- OUTSIDE RECORDS SUMMARY | 2018-08-07 18:14 | XMS REPORT | Clinical Summary ---
Author Author Admin, GUSTAVO Organization [facility] Address Unknown Phone Unavailable Allergies, Adverse [...] Special screening for osteoporosis V82.81 Active Diana yS [facility] Screening for osteoporosis Neoplasm of uncertain behavior [...] TABS 1 daily for depression PAROXETINE HCL 56446368962 Active Daniel Wilson MD Active LISINOPRIL-HYDROCHLOROTHIAZIDE 10-12.5 MG TABS 1 every morning for high blood pressure LISINOPRIL-HYDROCHLOROTHIAZIDE 17225048615 Active Melina Mcarthur Active DILTIAZEM HCL ER 240 MG [id number] 1 daily for high blood pressure DILTIAZEM HCL 79798552152 Active Daniel Wilson MD Active TERBINAFINE HCL 250 MG TABS 1 qDay TERBINAFINE HCL 92088943830 No Longer Active Daniel Wilson MD Active PROGESTERONE (150MCG) TESTOSTERONE (2.5MCG) BI-EST 2MG COMP 1 every evening PROGESTERONE (150MCG) TESTOSTERONE (2.5MCG) BI-EST 2MG COMP Active Daniel Wilson MD Active COMPOUNDED T3 (22.5MCG) AND T4 (95MCG) 1 every morning Active Daniel Wilson MD Active D3-50 79385 UNIT CAPS one capsule once a week CHOLECALCIFEROL 85684196220 Active Daniel Wilson MD Active METFORMIN HCL 500 MG TABS 1 tablet by mouth twice daily METFORMIN HCL 44934743192 Active Daniel Wilson MD Active PROAIR HFA 108 (90 BASE) MCG/ACT AERS 2 puffs four times a day as needed 2012 ALBUTEROL SULFATE 13736223819 Active Daniel Wilson MD Active LUMIGAN 0.03 % SOLN one drop in each eye at night BIMATOPROST 36813781752 Active Daniel Wilson MD Active TESSALON PERLES 100 MG CAP 1 to 2 tablets by mouth 3 times daily as needed for cough BENZONATATE 95134711468 No Longer Active Daniel Wilson MD Active PREDNISONE 20 MG TAB 1 po bid 2 days, then daily for 2 days. 2012 PREDNISONE 66231826724 No Longer Active Daniel Wilson MD Active ATROVENT 0.06 % SOLUTION 1 to 2 sprays each nostril qid prn runny nose 03/05 IPRATROPIUM BROMIDE 73593101473 Active Daniel Wilson MD Active ZITHROMAX Z-LIAM 250 MG TABS 2 today, then 1 daily for 4 days 2011 AZITHROMYCIN 64499676111 No Longer Active Daniel Wilson MD Active PREDNISONE 20 MG TAB 1 po bid 2 days, then daily for 2 days. 2012 PREDNISONE 20 MG TAB 738081 PREDNISONE Inactive TESSALON PERLES 100 MG CAP 1 to 2 tablets by mouth 3 times daily as needed for cough TESSALON PERLES 100 MG CAP 930825 BENZONATATE Inactive ZITHROMAX Z-LIAM 250 MG TABS 2 today, then 1 daily for 4 days 2011 ZITHROMAX Z-LIAM 250 MG TABS 4256670 AZITHROMYCIN Inactive TERBINAFINE HCL 250 MG TABS 1 qDay TERBINAFINE HCL 250 MG TABS 750081 TERBINAFINE HCL Inactive Vital Signs Date Name [...] 65-110 Encounters Code Encounter Date Provider Facility CPT-42050 Level 4 Est. Patient 17:36:45 CDT Daniel Wilson MD [facility] CPT-14378 Level 4 Est. Patient 11:11:21 CDT Daniel Wilson MD [facility] CPT-88745 Level 4 Est. Patient 17:38:38 CDT Daniel Wilson MD [facility] CPT-58105 Level 3 Est. Patient 15:33:36 FINISH MOLDER Radu Snow DO [facility] CPT-06983 Level 3 Est. Patient 17:50:06 CDT Daniel Wilson MD [facility] CPT-64749 Level 4 Est. Patient 18:11:39 FINISH MOLDER Daniel Wilson MD [facility] Procedures Code Procedure Name Date Entry Date Standard Description CPT-LR Lesion Removal 12:04:40 CDT CPT-20014 Venipuncture Draw Fee 08:33:06 CDT CPT-68834 Venipuncture Draw Fee 08:17:56 CDT CPT-02704 Venipuncture Draw Fee 08:17:16 FINISH MOLDER CPT-76231 Venipuncture Draw Fee 08:04:18 CDT CPT-60074 Venipuncture Draw Fee 08:39:03 FINISH MOLDER
--- OUTSIDE RECORDS SUMMARY | 2018-08-07 18:14 | XMS REPORT | Clinical Summary ---
Author Author Admin, GUSTAVO Organization [facility] Address Unknown Phone Unavailable Allergies, Adverse [...] 146.25 MG ORAL TABS once daily THYROID 69812456914 Active Rosangela Bundy APRN Active TRAVATAN Z 0.004 % OPHTH SOLN 1 drop in each eye nightly TRAVOPROST 50805804402 Active Rosangela Bundy APRN Active ATROVENT 0.06 % SOLUTION 1 to 2 sprays each nostril qid prn runny nose 03/05 IPRATROPIUM BROMIDE 56483050479 No Longer Active Daniel Wilson MD Active PROAIR HFA 108 (90 BASE) MCG/ACT AERS 2 puffs four times a day as needed 2012 ALBUTEROL SULFATE 06335128255 No Longer Active Daniel Wilson MD Active PAROXETINE HCL 20 MG TABS 1 daily for depression PAROXETINE HCL 32096220471 Active Rosangela Bundy APRN Active LISINOPRIL-HYDROCHLOROTHIAZIDE 10-12.5 MG TABS 1 every morning for high blood pressure LISINOPRIL-HYDROCHLOROTHIAZIDE 41258406943 Active Rosangela Bundy APRN Active DILTIAZEM HCL ER 240 MG [id number] 1 daily for high blood pressure DILTIAZEM HCL 20098855075 Active Rosangela Bundy APRN Active TERBINAFINE HCL 250 MG TABS 1 qDay TERBINAFINE HCL 22551169219 No Longer Active Daniel Wilson MD Active PROGESTERONE (150MCG) TESTOSTERONE (2.5MCG) BI-EST 2MG COMP 1 every evening PROGESTERONE (150MCG) TESTOSTERONE (2.5MCG) BI-EST 2MG COMP Active Daniel Wilson MD Active COMPOUNDED T3 (22.5MCG) AND T4 (95MCG) 1 every morning No Longer Active Daniel Wilson MD Active D3-50 27367 UNIT CAPS one capsule once a week CHOLECALCIFEROL 64859055137 Active Daniel Wilson MD Active METFORMIN HCL 500 MG TABS 1 tablet by mouth twice daily METFORMIN HCL 22835229884 Active Daniel Wilson MD Active LUMIGAN 0.03 % SOLN one drop in each eye at night BIMATOPROST 04100818721 No Longer Active Daniel Wilson MD Active TESSALON PERLES 100 MG CAP 1 to 2 tablets by mouth 3 times daily as needed for cough BENZONATATE 24566489487 No Longer Active Daniel Wilson MD Active PREDNISONE 20 MG TAB 1 po bid 2 days, then daily for 2 days. 2012 PREDNISONE 31610995579 No Longer Active Daniel Wilson MD Active ZITHROMAX Z-LIAM 250 MG TABS 2 today, then 1 daily for 4 days 2011 AZITHROMYCIN 80954597394 No Longer Active Daniel Wilson MD Active PREDNISONE 20 MG TAB 1 po bid 2 days, then daily for 2 days. 2012 PREDNISONE 20 MG TAB 645415 PREDNISONE Inactive TESSALON PERLES 100 MG CAP 1 to 2 tablets by mouth 3 times daily as needed for cough TESSALON PERLES 100 MG CAP 416517 BENZONATATE Inactive PROAIR HFA 108 (90 BASE) [...] days 2011 ZITHROMAX Z-LIAM 250 MG TABS 9075866 AZITHROMYCIN Inactive TERBINAFINE HCL 250 MG TABS 1 qDay TERBINAFINE HCL 250 MG TABS 890854 TERBINAFINE HCL Inactive Vital Signs Date Name Value Unit Range Description blood pressure, diastolic 83 mm[Hg] BP mercado blood pressure, systolic 132 mm[Hg] BP sys height E&M 66 [in_us] Bdy height pulse rate E&M 58 /min Heart rate temperature E&M 96.9 [degF] Body temperature weight E&M 213.5 [lb_av] Weight Measured Diagnostic Results Date Name Value Unit Range Description Lab Report: CBC (INCLUDES DIFF/PLT)/6399, COMPREHENSIVE METABOLIC PANEL, ... - Chemistry cholesterol, serum 201 mg/dL 836-757 1433/05/08 HDL cholesterol, serum 82 mg/dL > OR=46 triglyceride, serum, fasting 80 mg/dL <150 LDL cholesterol, serum 103 MG/DL (CALC) mg/dL <130 cholesterol/HDL ratio, serum 2.5 (calc) < OR=5.0 testosterone, total 44 ng/dL 2-45 Lab Report: CBC (INCLUDES DIFF/PLT)/6399, COMPREHENSIVE METABOLIC PANEL, ... - Hematology platelet count 352 THOUSAND/UL 10*3/mm3 909-597 5210/05/08 red blood cell distribution width 14.7 % 11.0-15.0 hematocrit, blood 42.2 % 35.0-45.0 hemoglobin, blood 13.6 g/dL 11.7-15.5 erythrocyte (RBC) count 4.70 MILLION/UL 10*6/mm3 3.80-5.10 leukocyte count, blood 5.9 THOUSAND/UL 10*3/mm3 3.8-10.8 mean corpuscular hemoglobin concentration, RBC 32.3 G/DL % 32.0- 36.0 mean corpuscular hemoglobin, RBC 29.0 pg 27.0-33.0 mean corpuscular volume, RBC 89.9 fL 80.0-100.0 mean platelet volume 8.1 fL 7.5-12.5 Lab Report: MICROALB/CREAT W/RATIO - Chemistry albumin/creatinine ratio, urine <30 mg/g Normal mg/g mg/g{creat} 0-29 Lab Report: MICROALB/CREAT W/RATIO - Lab microalbumin, urine 10 mg/L 0-19 Lab Report: VITAMIN D, 25-HYDROXY/00060 - Chemistry vitamin D 25-hydroxy, serum 111 ng/mL 30-100 Encounters Code Encounter Date Provider Facility CPT-41392 Level 4 Est. Patient 22:48:05 CDT Rosangela Bundy APRN [facility] CPT-10839 Level 4 Est. Patient 09:51:42 CDT Daniel Wilson MD [facility] CPT-29897 Level 4 Est. Patient 17:36:45 CDT Daniel Wilson MD [facility] CPT-08872 Level 4 Est. Patient 11:11:21 CDT Daniel Wilson MD [facility] CPT-64198 Level 4 Est. Patient 17:38:38 CDT Daniel Wilson MD [facility] CPT-12096 Level 3 Est. Patient 15:33:36 HAND SIZER Radu Snow DO [facility] CPT-34532 Level 3 Est. Patient 17:50:06 CDT Daniel Wilson MD [facility] CPT-22591 Level 4 Est. Patient 18:11:39 HAND SIZER Daniel Wilson MD [facility] Procedures Code Procedure Name Date Entry Date Standard Description CPT-000 Give Zostavax 12:48:22 CDT CPT-22332 First Vx - Ix admin via ID IM or jet injects without counseling by physician 13:17:45 CDT CPT-43054 Zostavax Subcutaneous Solution Reconstituted 49868 UNT/0.65ML 11/15 13:17:45 CDT CPT-16123 Venipuncture Draw Fee 10:33:11 CDT CPT-81784 Venipuncture Draw Fee 08:32:33 CDT CPT-LR Lesion Removal 12:04:40 CDT CPT-52907 Venipuncture Draw Fee 08:33:06 CDT CPT-03519 Venipuncture Draw Fee 08:17:56 CDT CPT-66662 Venipuncture Draw Fee 08:17:16 HAND SIZER CPT-79699 Venipuncture Draw Fee 08:04:18 CDT CPT-36744 Venipuncture Draw Fee 08:39:03 HAND SIZER
--- OUTSIDE RECORDS SUMMARY | 2018-08-07 18:14 | XMS REPORT | Clinical Summary ---
Author Author Admin, GUSTAVO Organization [facility] Address Unknown Phone Unavailable Allergies, Adverse [...] 146.25 MG ORAL TABS once daily THYROID 48207108387 Active Rosangela Bundy APRN Active TRAVATAN Z 0.004 % OPHTH SOLN 1 drop in each eye nightly TRAVOPROST 95566236823 Active Rosangela Bundy APRN Active ATROVENT 0.06 % SOLUTION 1 to 2 sprays each nostril qid prn runny nose 03/05 IPRATROPIUM BROMIDE 10957202075 No Longer Active Daniel Wilson MD Active PROAIR HFA 108 (90 BASE) MCG/ACT AERS 2 puffs four times a day as needed 2012 ALBUTEROL SULFATE 87790012202 No Longer Active Daniel Wilson MD Active PAROXETINE HCL 20 MG TABS 1 daily for depression PAROXETINE HCL 07040644505 Active Rosangela Bundy APRN Active LISINOPRIL-HYDROCHLOROTHIAZIDE 10-12.5 MG TABS 1 every morning for high blood pressure LISINOPRIL-HYDROCHLOROTHIAZIDE 94921322544 Active Rosangela Bundy APRN Active DILTIAZEM HCL ER 240 MG [id number] 1 daily for high blood pressure DILTIAZEM HCL 83567185041 Active Rosangela Bundy APRN Active TERBINAFINE HCL 250 MG TABS 1 qDay TERBINAFINE HCL 74760678360 No Longer Active Daniel Wilson MD Active PROGESTERONE (150MCG) TESTOSTERONE (2.5MCG) BI-EST 2MG COMP 1 every evening PROGESTERONE (150MCG) TESTOSTERONE (2.5MCG) BI-EST 2MG COMP Active Daniel Wilson MD Active COMPOUNDED T3 (22.5MCG) AND T4 (95MCG) 1 every morning No Longer Active Daniel Wilson MD Active D3-50 49852 UNIT CAPS one capsule once a week CHOLECALCIFEROL 56918284109 Active Daniel Wilson MD Active METFORMIN HCL 500 MG TABS 1 tablet by mouth twice daily METFORMIN HCL 21899788073 Active Daniel Wilson MD Active LUMIGAN 0.03 % SOLN one drop in each eye at night BIMATOPROST 67538568054 No Longer Active Daniel Wilson MD Active TESSALON PERLES 100 MG CAP 1 to 2 tablets by mouth 3 times daily as needed for cough BENZONATATE 39872549065 No Longer Active Daniel Wilson MD Active PREDNISONE 20 MG TAB 1 po bid 2 days, then daily for 2 days. 2012 PREDNISONE 04161244543 No Longer Active Daniel Wilson MD Active ZITHROMAX Z-LIAM 250 MG TABS 2 today, then 1 daily for 4 days 2011 AZITHROMYCIN 76351441870 No Longer Active Daniel Wilson MD Active PREDNISONE 20 MG TAB 1 po bid 2 days, then daily for 2 days. 2012 PREDNISONE 20 MG TAB 655358 PREDNISONE Inactive TESSALON PERLES 100 MG CAP 1 to 2 tablets by mouth 3 times daily as needed for cough TESSALON PERLES 100 MG CAP 454666 BENZONATATE Inactive PROAIR HFA 108 (90 BASE) [...] days 2011 ZITHROMAX Z-LIAM 250 MG TABS 1455898 AZITHROMYCIN Inactive TERBINAFINE HCL 250 MG TABS 1 qDay TERBINAFINE HCL 250 MG TABS 642666 TERBINAFINE HCL Inactive Vital Signs Date Name [...] ... - Chemistry cholesterol, serum 201 mg/dL 752-720 3481/05/08 HDL cholesterol, serum 82 mg/dL > OR=46 [...] % 11.0-15.0 platelet count 352 THOUSAND/UL 10*3/mm3 879-951 4981/05/08 mean platelet volume 8.1 fL 7.5-12.5 Lab Report: MICROALB/CREAT W/RATIO - Chemistry albumin/creatinine ratio, urine <30 mg/g Normal mg/g mg/g{creat} 0-29 Lab Report: MICROALB/CREAT W/RATIO - Lab microalbumin, urine 10 mg/L 0-19 Lab Report: VITAMIN D, 25-HYDROXY/04527 - Chemistry vitamin D 25-hydroxy, serum 111 ng/mL 30-100 Encounters Code Encounter Date Provider Facility CPT-53096 Level 4 Est. Patient 22:48:05 CDT Rosangela Bundy APRN [facility] CPT-92844 Level 4 Est. Patient 09:51:42 CDT Daniel Wilson MD [facility] CPT-52545 Level 4 Est. Patient 17:36:45 CDT Daniel Wilson MD [facility] CPT-88946 Level 4 Est. Patient 11:11:21 CDT Daniel Wilson MD [facility] CPT-18519 Level 4 Est. Patient 17:38:38 CDT Daniel Wilson MD [facility] CPT-25990 Level 3 Est. Patient 15:33:36 AUTOS DISASSEMBLER Radu Jason Edy PACE [facility] CPT-12593 Level 3 Est. Patient 17:50:06 CDT Daniel Wilson MD [facility] CPT-92926 Level 4 Est. Patient 18:11:39 AUTOS DISASSEMBLER Daniel Wilson MD [facility] Procedures Code Procedure Name Date Entry Date Standard Description CPT-53456 First Vx - Ix admin via ID IM or jet injects without counseling by physician 13:17:45 CDT CPT-64420 Zostavax Subcutaneous Solution Reconstituted 53215 UNT/0.65ML 11/15 13:17:45 CDT CPT-28410 Venipuncture Draw Fee 10:33:11 CDT CPT-39977 Venipuncture Draw Fee 08:32:33 CDT CPT-LR Lesion Removal 12:04:40 CDT CPT-12825 Venipuncture Draw Fee 08:33:06 CDT CPT-10125 Venipuncture Draw Fee 08:17:56 CDT CPT-04767 Venipuncture Draw Fee 08:17:16 AUTOS DISASSEMBLER CPT-71668 Venipuncture Draw Fee 08:04:18 CDT CPT-61651 Venipuncture Draw Fee 08:39:03 AUTOS DISASSEMBLER
--- OUTSIDE RECORDS SUMMARY | 2018-08-07 18:15 | XMS REPORT | Clinical Summary ---
Author Author Admin, E Organization [facility] Address Unknown Phone Unavailable Allergies, Adverse [...] 146.25 MG ORAL TABLET once daily THYROID 49334752740 Active Rosangela Bundy APRN Active TRAVATAN Z 0.004 % OPHTHALMIC SOLUTION 1 drop in each eye nightly TRAVOPROST 70547495829 Active Rosangela Bundy APRN Active ATROVENT 0.06 % NASAL SOLUTION 1 to 2 sprays each nostril qid prn runny nose IPRATROPIUM BROMIDE 64705221770 No Longer Active Daniel Wilson MD Active PROAIR HFA 108 (90 Base) MCG/ACT INHALATION AEROSOL SOLUTION 2 puffs four times a day as needed ALBUTEROL SULFATE 95239909463 No Longer Active Daniel Wilson MD Active PAROXETINE HCL 20 MG ORAL TABLET 1 daily for depression PAROXETINE HCL 45514110601 Active Maya Mcdaniel MA Active LISINOPRIL-HYDROCHLOROTHIAZIDE 10-12.5 MG ORAL TABLET 1 every morning for high blood pressure LISINOPRIL-HYDROCHLOROTHIAZIDE 09255020662 Active Maya Mcdaniel MA Active DILTIAZEM HCL ER 240 MG ORAL CAPSULE EXTENDED RELEASE 24 HOUR 1 daily for high blood pressure DILTIAZEM HCL 13592000257 Active Maya Mcdaniel MA Active TERBINAFINE HCL 250 MG ORAL TABLET 1 qDay TERBINAFINE HCL 96148916884 No Longer Active Daniel Wilson MD Active PROGESTERONE (150MCG) TESTOSTERONE (2.5MCG) BI-EST 2MG COMP 1 every evening PROGESTERONE (150MCG) TESTOSTERONE (2.5MCG) BI-EST 2MG COMP Active Daniel Wilson MD Active COMPOUNDED T3 (22.5MCG) AND T4 (95MCG) 1 every morning No Longer Active Daniel Wilson MD Active D3-50 95709 UNIT ORAL CAPSULE one capsule once a week CHOLECALCIFEROL 18703447694 Active Daniel Wilson MD Active METFORMIN HCL 500 MG ORAL TABLET 1 tablet by mouth twice daily METFORMIN HCL 40553392691 Active Daniel Wilson MD Active LUMIGAN 0.03 % SOLN one drop in each eye at night BIMATOPROST 97295711241 No Longer Active Daniel Wilson MD Active TESSALON PERLES 100 MG ORAL CAPSULE 1 to 2 tablets by mouth 3 times daily as needed for cough BENZONATATE 21968550170 No Longer Active Daniel Wilson MD Active PREDNISONE 20 MG ORAL TABLET 1 po bid 2 days, then daily for 2 days. PREDNISONE 84914928317 No Longer Active Daniel Wilson MD Active ZITHROMAX Z-LIAM 250 MG ORAL TABLET 2 today, then 1 daily for 4 days AZITHROMYCIN 09509264422 No Longer Active Daniel Wilson MD Active PREDNISONE 20 MG ORAL TABLET 1 po bid 2 days, then daily for 2 days. PREDNISONE 20 MG ORAL TABLET 115028 PREDNISONE Inactive TESSALON PERLES 100 MG ORAL CAPSULE 1 to 2 tablets by mouth 3 times daily as needed for cough TESSALON PERLES 100 MG ORAL CAPSULE 430966 BENZONATATE Inactive PROAIR HFA 108 (90 Base) [...] days ZITHROMAX Z-LIAM 250 MG ORAL TABLET 578964 AZITHROMYCIN Inactive TERBINAFINE HCL 250 MG ORAL TABLET 1 qDay TERBINAFINE HCL 250 MG ORAL TABLET 800319 TERBINAFINE HCL Inactive Diagnostic Results Date Name Value Unit Range Description Lab Report: CBC W/DIFF, Comp. Metabolic Panel, HGBA1C, Lipid Panel, Thyr ... - Chemistry sodium, serum 139 mmol/L 421-523 7939/05/10 carbon dioxide, venous blood 28.4 mmol/L 21.0-32.0 [...] 5.8 % 4.3-6.0 cholesterol, serum 209 mg/dL 425-337 8965/05/10 triglyceride, serum, fasting 70 mg/dL 30-200 HDL [...] 10 mg/L 0-19 Lab Report: VITAMIN D, 25-HYDROXY/96483 - Chemistry vitamin D 25-hydroxy, serum 72 ng/mL 30-100 Encounters Code Encounter Date Provider Facility CPT-34834 Level 4 Est. Patient 22:48:05 CDT Rosangela Bundy CORTEZ [facility] CPT-37352 Level 4 Est. Patient 09:51:42 CDT Daniel Wilson MD [facility] CPT-42018 Level 4 Est. Patient 17:36:45 CDT Daniel Wilson MD [facility] CPT-49743 Level 4 Est. Patient 11:11:21 CDT Daniel Wilson MD [facility] CPT-38827 Level 4 Est. Patient 17:38:38 CDT Daniel Wilson MD [facility] CPT-88666 Level 3 Est. Patient 15:33:36 ROUTE SUPERVISOR Radu Snow DO [facility] CPT-48735 Level 3 Est. Patient 17:50:06 CDT Daniel Wilson MD [facility] CPT-73128 Level 4 Est. Patient 18:11:39 ROUTE SUPERVISOR Daniel Wilson MD [facility] Procedures Code Procedure Name Date Entry Date Standard Description CPT-000 Give Zostavax 12:48:22 CDT CPT-71758 First Vx - Ix admin via ID IM or jet injects without counseling by physician 13:17:45 CDT CPT-76330 Zostavax Subcutaneous Solution Reconstituted 00034 UNT/0.65ML 11/15 13:17:45 CDT CPT-13651 Venipuncture Draw Fee 10:33:11 CDT CPT-97567 Venipuncture Draw Fee 08:32:33 CDT CPT-LR Lesion Removal 12:04:40 CDT CPT-69168 Venipuncture Draw Fee 08:33:06 CDT CPT-18982 Venipuncture Draw Fee 08:17:56 CDT CPT-07985 Venipuncture Draw Fee 08:17:16 ROUTE SUPERVISOR CPT-10388 Venipuncture Draw Fee 08:04:18 CDT CPT-82798 Venipuncture Draw Fee 08:39:03 ROUTE SUPERVISOR
--- OUTSIDE RECORDS SUMMARY | 2018-08-07 18:15 | XMS REPORT | Clinical Summary ---
Author Author Admin, E Organization [facility] Address Unknown Phone Unavailable Allergies, Adverse [...] Faux RMA Asymptomatic postmenopausal status (age-related) (natural) PHARYNGITIS ICD-462 Inactive Daniel Wilson MD URI ICD-465.9 Inactive Daniel Wilson MD LARYNGITIS, ACUTE ICD-464.00 Inactive Daniel Wilson MD Adult onset diabetes mellitus ICD-250.00 Inactive Daniel Wilson MD Medication List Medication Instructions Start Date Stop Date Generic Name NDC Status Provider Patient Instruction ATROVENT 0.06 % SOLUTION 1 to 2 sprays each nostril qid prn runny nose 03/05 IPRATROPIUM BROMIDE 10661933320 No Longer Active Daniel Wilson MD Active PROAIR HFA 108 (90 BASE) MCG/ACT AERS 2 puffs four times a day as needed 2012 ALBUTEROL SULFATE 86853178149 No Longer Active Daniel Wilson MD Active PAROXETINE HCL 20 MG TABS 1 daily for depression PAROXETINE HCL 74602429108 Active MELINDA SolMilla Active LISINOPRIL-HYDROCHLOROTHIAZIDE 10-12.5 MG TABS 1 every morning for high blood pressure LISINOPRIL-HYDROCHLOROTHIAZIDE 60682904254 Active Akanksha Paredes STONEY Active DILTIAZEM HCL ER 240 MG [id number] 1 daily for high blood pressure DILTIAZEM HCL 76111093846 Active Daniel Wilson MD Active TERBINAFINE HCL 250 MG TABS 1 qDay TERBINAFINE HCL 12909794078 No Longer Active Daniel Wilson MD Active PROGESTERONE (150MCG) TESTOSTERONE (2.5MCG) BI-EST 2MG COMP 1 every evening PROGESTERONE (150MCG) TESTOSTERONE (2.5MCG) BI-EST 2MG COMP Active Daniel Wilson MD Active COMPOUNDED T3 (22.5MCG) AND T4 (95MCG) 1 every morning Active Daniel Wilson MD Active D3-50 07494 UNIT CAPS one capsule once a week CHOLECALCIFEROL 01101827966 Active Daniel Wilson MD Active METFORMIN HCL 500 MG TABS 1 tablet by mouth twice daily METFORMIN HCL 83825974763 Active Daniel Wilson MD Active LUMIGAN 0.03 % SOLN one drop in each eye at night BIMATOPROST 55803412916 Active Daniel Wilson MD Active TESSALON PERLES 100 MG CAP 1 to 2 tablets by mouth 3 times daily as needed for cough BENZONATATE 29119493062 No Longer Active Daniel Wilson MD Active PREDNISONE 20 MG TAB 1 po bid 2 days, then daily for 2 days. 2012 PREDNISONE 83802927908 No Longer Active Daniel Wilson MD Active ZITHROMAX Z-LIAM 250 MG TABS 2 today, then 1 daily for 4 days 2011 AZITHROMYCIN 92588011888 No Longer Active Daniel Wilson MD Active PREDNISONE 20 MG TAB 1 po bid 2 days, then daily for 2 days. 2012 PREDNISONE 20 MG TAB 428352 PREDNISONE Inactive TESSALON PERLES 100 MG CAP 1 to 2 tablets by mouth 3 times daily as needed for cough TESSALON PERLES 100 MG CAP 551200 BENZONATATE Inactive PROAIR HFA 108 (90 BASE) [...] days 2011 ZITHROMAX Z-LIAM 250 MG TABS 9442727 AZITHROMYCIN Inactive TERBINAFINE HCL 250 MG TABS 1 qDay TERBINAFINE HCL 250 MG TABS 124464 TERBINAFINE HCL Inactive Diagnostic Results Date Name Value Unit Range Description Lab Report: CBC (INCLUDES DIFF/PLT)/6399, COMPREHENSIVE METABOLIC PANEL, ... - Chemistry cholesterol, serum 201 mg/dL 318-228 6129/05/08 HDL cholesterol, serum 82 mg/dL > OR=46 triglyceride, serum, fasting 80 mg/dL <150 LDL cholesterol, serum 103 MG/DL (CALC) mg/dL <130 cholesterol/HDL ratio, serum 2.5 (calc) < OR=5.0 testosterone, total 44 ng/dL 2-45 Lab Report: CBC (INCLUDES DIFF/PLT)/6399, COMPREHENSIVE METABOLIC PANEL, ... - Hematology hematocrit, blood 42.2 % 35.0-45.0 hemoglobin, blood 13.6 g/dL 11.7-15.5 erythrocyte (RBC) count 4.70 MILLION/UL 10*6/mm3 3.80-5.10 leukocyte count, blood 5.9 THOUSAND/UL 10*3/mm3 3.8-10.8 mean corpuscular volume, RBC 89.9 fL 80.0-100.0 mean corpuscular hemoglobin, RBC 29.0 pg 27.0-33.0 mean corpuscular hemoglobin concentration, RBC 32.3 G/DL % 32.0- 36.0 red blood cell distribution width 14.7 % 11.0-15.0 platelet count 352 THOUSAND/UL 10*3/mm3 307-891 2004/05/08 mean platelet volume 8.1 fL 7.5-12.5 Lab Report: VITAMIN D, 25-HYDROXY/57754 - Chemistry vitamin D 25-hydroxy, serum 111 ng/mL 30-100 Encounters Code Encounter Date Provider Facility CPT-43569 Level 4 Est. Patient 09:51:42 CDT Daniel Wilson MD [facility] CPT-88809 Level 4 Est. Patient 17:36:45 CDT Daniel Wilson MD [facility] CPT-57125 Level 4 Est. Patient 11:11:21 CDT Daniel Wilson MD [facility] CPT-12637 Level 4 Est. Patient 17:38:38 CDT Daniel Wilson MD [facility] CPT-76795 Level 3 Est. Patient 15:33:36 BRICKLAYER PAVING BRICK Radu Snow DO [facility] CPT-87741 Level 3 Est. Patient 17:50:06 CDT Daniel Wilson MD [facility] CPT-05880 Level 4 Est. Patient 18:11:39 BRICKLAYER [employer]ICK Daniel Wilson MD [facility] Procedures Code Procedure Name Date Entry Date Standard Description CPT-78141 Venipuncture Draw Fee 10:33:11 CDT CPT-58812 Venipuncture Draw Fee 08:32:33 CDT CPT-LR Lesion Removal 12:04:40 CDT CPT-23192 Venipuncture Draw Fee 08:33:06 CDT CPT-77277 Venipuncture Draw Fee 08:17:56 CDT CPT-54141 Venipuncture Draw Fee 08:17:16 [employer] CPT-85748 Venipuncture Draw Fee 08:04:18 CDT CPT-75824 Venipuncture Draw Fee 08:39:03 BRICKLAYER P[employer]ING BRICK
--- OUTSIDE RECORDS SUMMARY | 2018-08-07 18:15 | XMS REPORT | Clinical Summary ---
Author Author Admin, GUSTAVO Organization [facility] Address Unknown Phone Unavailable Allergies, [...] 146.25 MG ORAL TABS once daily THYROID 09792398180 Active Rosangela Bundy APRN Active TRAVATAN Z 0.004 % OPHTH SOLN 1 drop in each eye nightly TRAVOPROST 36124849978 Active Rosangela Bundy APRN Active ATROVENT 0.06 % SOLUTION 1 to 2 sprays each nostril qid prn runny nose 03/05 IPRATROPIUM BROMIDE 51683999372 No Longer Active Daniel Wilson MD Active PROAIR HFA 108 (90 BASE) MCG/ACT AERS 2 puffs four times a day as needed 2012 ALBUTEROL SULFATE 56129687463 No Longer Active aDniel Wilson MD Active PAROXETINE HCL 20 MG TABS 1 daily for depression PAROXETINE HCL 88378259224 Active Rosangela Bundy APRN Active LISINOPRIL-HYDROCHLOROTHIAZIDE 10-12.5 MG TABS 1 every morning for high blood pressure LISINOPRIL-HYDROCHLOROTHIAZIDE 81650404098 Active Rosangela Bundy APRN Active DILTIAZEM HCL ER 240 MG [id number] 1 daily for high blood pressure DILTIAZEM HCL 73575115259 Active Rosangela Bundy APRN Active TERBINAFINE HCL 250 MG TABS 1 qDay TERBINAFINE HCL 42968333958 No Longer Active Daniel Wilson MD Active PROGESTERONE (150MCG) TESTOSTERONE (2.5MCG) BI-EST 2MG COMP 1 every evening PROGESTERONE (150MCG) TESTOSTERONE (2.5MCG) BI-EST 2MG COMP Active Daniel Wilson MD Active COMPOUNDED T3 (22.5MCG) AND T4 (95MCG) 1 every morning No Longer Active Daniel Wilson MD Active D3-50 54099 UNIT CAPS one capsule once a week CHOLECALCIFEROL 49664702738 Active Daniel Wilson MD Active METFORMIN HCL 500 MG TABS 1 tablet by mouth twice daily METFORMIN HCL 34043766808 Active Daniel Wilson MD Active LUMIGAN 0.03 % SOLN one drop in each eye at night BIMATOPROST 23313739525 No Longer Active Daniel Wilson MD Active TESSALON PERLES 100 MG CAP 1 to 2 tablets by mouth 3 times daily as needed for cough BENZONATATE 56149219904 No Longer Active Daniel Wilson MD Active PREDNISONE 20 MG TAB 1 po bid 2 days, then daily for 2 days. 2012 PREDNISONE 62431240514 No Longer Active Daniel Wilson MD Active ZITHROMAX Z-LIAM 250 MG TABS 2 today, then 1 daily for 4 days 2011 AZITHROMYCIN 14217130535 No Longer Active Daniel Wilson MD Active PREDNISONE 20 MG TAB 1 po bid 2 days, then daily for 2 days. 2012 PREDNISONE 20 MG TAB 320591 PREDNISONE Inactive TESSALON PERLES 100 MG CAP 1 to 2 tablets by mouth 3 times daily as needed for cough TESSALON PERLES 100 MG CAP 747403 BENZONATATE Inactive PROAIR HFA 108 (90 BASE) [...] days 2011 ZITHROMAX Z-LIAM 250 MG TABS 4576866 AZITHROMYCIN Inactive TERBINAFINE HCL 250 MG TABS 1 qDay TERBINAFINE HCL 250 MG TABS 718845 TERBINAFINE HCL Inactive Vital Signs Date Name [...] ... - Chemistry cholesterol, serum 201 mg/dL 219-166 0082/05/08 HDL cholesterol, serum 82 mg/dL > OR=46 [...] % 11.0-15.0 platelet count 352 THOUSAND/UL 10*3/mm3 441-398 9529/05/08 mean platelet volume 8.1 fL 7.5-12.5 Lab Report: MICROALB/CREAT W/RATIO - Chemistry albumin/creatinine ratio, urine <30 mg/g Normal mg/g mg/g{creat} 0-29 Lab Report: MICROALB/CREAT W/RATIO - Lab microalbumin, urine 10 mg/L 0-19 Lab Report: VITAMIN D, 25-HYDROXY/25904 - Chemistry vitamin D 25-hydroxy, serum 111 ng/mL 30-100 Encounters Code Encounter Date Provider Facility CPT-29924 Level 4 Est. Patient 22:48:05 CDT Rosangela Bundy APRN [facility] CPT-69112 Level 4 Est. Patient 09:51:42 CDT Daniel Wilson MD [facility] CPT-97005 Level 4 Est. Patient 17:36:45 CDT Daniel Wilson MD [facility] CPT-23258 Level 4 Est. Patient 11:11:21 CDT Daniel Wilson MD [facility] CPT-06808 Level 4 Est. Patient 17:38:38 CDT Daniel Wilson MD [facility] CPT-35602 Level 3 Est. Patient 15:33:36 PLASTICS FITTER Radu Jason Edy [facility] CPT-26390 Level 3 Est. Patient 17:50:06 CDT Daniel Wilson MD [facility] CPT-83757 Level 4 Est. Patient 18:11:39 PLASTICS FITTER Daniel Wilson MD [facility] Procedures Code Procedure Name Date Entry Date Standard Description CPT-43832 First Vx - Ix admin via ID IM or jet injects without counseling by physician 13:17:45 CDT CPT-20233 Zostavax Subcutaneous Solution Reconstituted 26383 UNT/0.65ML 11/15 13:17:45 CDT CPT-49534 Venipuncture Draw Fee 10:33:11 CDT CPT-36436 Venipuncture Draw Fee 08:32:33 CDT CPT-LR Lesion Removal 12:04:40 CDT CPT-89271 Venipuncture Draw Fee 08:33:06 CDT CPT-61324 Venipuncture Draw Fee 08:17:56 CDT CPT-40913 Venipuncture Draw Fee 08:17:16 PLASTICS FITTER CPT-51993 Venipuncture Draw Fee 08:04:18 CDT CPT-98295 Venipuncture Draw Fee 08:39:03 PLASTICS FITTER
--- OUTSIDE RECORDS SUMMARY | 2018-08-07 18:16 | XMS REPORT | Clinical Summary ---
Author Author Admin, GUSTAVO Organization [facility] Address Unknown Phone Unavailable Allergies, Adverse Reactions, Alerts Allergy Name Reaction Description Start Date Severity Status Provider BEE STINGS Critical Active Daniel Wilosn MD PCN Critical Active Daniel Wilson MD [...] uncontrolled High risk medication V58.69 Active Diana LUA Long-term (current) use of other medications PHARYNGITIS ICD-462 Inactive Daniel Wilson MD URI ICD-465.9 Inactive Daniel Wilson MD LARYNGITIS, ACUTE ICD-464.00 Inactive Daniel Wilson MD Adult onset diabetes mellitus ICD-250.00 Inactive Daniel Wilson MD Medication List Medication Instructions Start Date Stop Date Generic Name NDC Status Provider Patient Instruction ATROVENT 0.06 % SOLUTION 1 to 2 sprays each nostril qid prn runny nose 03/05 IPRATROPIUM BROMIDE 20011649736 No Longer Active Daniel Wilson MD Active PROAIR HFA 108 (90 BASE) MCG/ACT AERS 2 puffs four times a day as needed 2012 ALBUTEROL SULFATE 80887801899 No Longer Active Daniel Wilson MD Active PAROXETINE HCL 20 MG TABS 1 daily for depression PAROXETINE HCL 23839372620 Active Daniel Wilson MD Active LISINOPRIL-HYDROCHLOROTHIAZIDE 10-12.5 MG TABS 1 every morning for high blood pressure LISINOPRIL-HYDROCHLOROTHIAZIDE 03896074497 Active Daniel Wilson MD Active DILTIAZEM HCL ER 240 MG [id number] 1 daily for high blood pressure DILTIAZEM HCL 22949801266 Active Daniel Wilson MD Active TERBINAFINE HCL 250 MG TABS 1 qDay TERBINAFINE HCL 91490600304 No Longer Active Daniel Wilson MD Active PROGESTERONE (150MCG) TESTOSTERONE (2.5MCG) BI-EST 2MG COMP 1 every evening PROGESTERONE (150MCG) TESTOSTERONE (2.5MCG) BI-EST 2MG COMP Active Daniel Wilson MD Active COMPOUNDED T3 (22.5MCG) AND T4 (95MCG) 1 every morning Active Daniel Wilson MD Active D3-50 58717 UNIT CAPS one capsule once a week CHOLECALCIFEROL 98385867459 Active Daniel Wilson MD Active METFORMIN HCL 500 MG TABS 1 tablet by mouth twice daily METFORMIN HCL 09966351915 Active Daneil Wilson MD Active LUMIGAN 0.03 % SOLN one drop in each eye at night BIMATOPROST 10499520732 Active Daniel Wilson MD Active TESSALON PERLES 100 MG CAP 1 to 2 tablets by mouth 3 times daily as needed for cough BENZONATATE 45775994815 No Longer Active Daniel Wilson MD Active PREDNISONE 20 MG TAB 1 po bid 2 days, then daily for 2 days. 2012 PREDNISONE 45918893616 No Longer Active Daniel Wilson MD Active ZITHROMAX Z-LIAM 250 MG TABS 2 today, then 1 daily for 4 days 2011 AZITHROMYCIN 31417418101 No Longer Active Daniel Wilson MD Active PREDNISONE 20 MG TAB 1 po bid 2 days, then daily for 2 days. 2012 PREDNISONE 20 MG TAB 421730 PREDNISONE Inactive TESSALON PERLES 100 MG CAP 1 to 2 tablets by mouth 3 times daily as needed for cough TESSALON PERLES 100 MG CAP 597113 BENZONATATE Inactive PROAIR HFA 108 (90 BASE) MCG/ACT AERS 2 puffs four times a day as needed 2012 PROAIR HFA 108 (90 BASE) MCG/ACT AERS ALBUTEROL SULFATE Inactive ATROVENT 0.06 % SOLUTION 1 to 2 sprays each nostril qid prn runny nose 03/05 ATROVENT 0.06 % SOLUTION 182627 IPRATROPIUM BROMIDE Inactive ZITHROMAX Z-LIAM 250 MG TABS 2 today, then 1 daily for 4 days 2011 ZITHROMAX Z-LIAM 250 MG TABS 8319271 AZITHROMYCIN Inactive TERBINAFINE HCL 250 MG TABS 1 qDay TERBINAFINE HCL 250 MG TABS 558348 TERBINAFINE HCL Inactive Vital Signs Date Name Value Unit Range Description blood pressure, diastolic - 8462-4 81 mm[Hg] BP mercado blood pressure, systolic - 8480-6 127 mm[Hg] BP sys pulse rate E&M - 8867-4 60 /min Heart rate temperature E&M 97.8 [degF] Body temperature weight E&M - 3141-9 230.6 [lb_av] Weight Measured blood pressure, diastolic - 8462-4 84 mm[Hg] [...] 65-110 Encounters Code Encounter Date Provider Facility CPT-56572 Level 4 Est. Patient 09:51:42 CDT Daniel Wilson MD [facility] CPT-51346 Level 4 Est. Patient 17:36:45 CDT Daniel Wilson MD [facility] CPT-50560 Level 4 Est. Patient 11:11:21 CDT Daniel Wilson MD [facility] CPT-78725 Level 4 Est. Patient 17:38:38 CDT Daniel Wilson MD [facility] CPT-74789 Level 3 Est. 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 Patient 17:50:06 CDT Daniel Wilson MD [facility] CPT-55212 Level 4 Est. Patient 18:11:39 MARKETING FORECASTER Daniel Wilson MD [facility] Procedures Code Procedure Name Date Entry Date Standard Description CPT-88775 Venipuncture Draw Fee 08:32:33 CDT CPT-LR Lesion Removal 12:04:40 CDT CPT-46510 Venipuncture Draw Fee 08:33:06 CDT CPT-08545 Venipuncture Draw Fee 08:17:56 CDT CPT-90421 Venipuncture Draw Fee 08:17:16 MARKETING FORECASTER CPT-91439 Venipuncture Draw Fee 08:04:18 CDT CPT-09900 Venipuncture Draw Fee 08:39:03 MARKETING FORECASTER
--- OUTSIDE RECORDS SUMMARY | 2018-08-07 18:16 | XMS REPORT | Clinical Summary ---
Author Author Admin, GUSTAVO Organization [facility] Address Unknown Phone [...] qid prn runny nose 03/05 IPRATROPIUM BROMIDE 93120015527 No Longer Active Daniel Wilson MD Active PROAIR HFA 108 (90 BASE) MCG/ACT AERS 2 puffs four times a day as needed 2012 ALBUTEROL SULFATE 12121774788 No Longer Active Daniel Wilson MD Active PAROXETINE HCL 20 MG TABS 1 daily for depression PAROXETINE HCL 10304170092 Active Daniel Wilson MD Active LISINOPRIL-HYDROCHLOROTHIAZIDE 10-12.5 MG TABS 1 every morning for high blood pressure LISINOPRIL-HYDROCHLOROTHIAZIDE 25936986786 Active Daniel Wilson MD Active DILTIAZEM HCL ER 240 MG [id number] 1 daily for high blood pressure DILTIAZEM HCL 92668149419 Active Daniel Wilson MD Active TERBINAFINE HCL 250 MG TABS 1 qDay TERBINAFINE HCL 89292920023 No Longer Active Daniel Wilson MD Active PROGESTERONE (150MCG) TESTOSTERONE (2.5MCG) BI-EST 2MG COMP 1 every evening PROGESTERONE (150MCG) TESTOSTERONE (2.5MCG) BI-EST 2MG COMP Active Daniel Wilson MD Active COMPOUNDED T3 (22.5MCG) AND T4 (95MCG) 1 every morning Active Daniel Wilson MD Active D3-50 41623 UNIT CAPS one capsule once a week CHOLECALCIFEROL 07645162431 Active Daniel Wilson MD Active METFORMIN HCL 500 MG TABS 1 tablet by mouth twice daily METFORMIN HCL 75884118552 Active Daniel Wilson MD Active LUMIGAN 0.03 % SOLN one drop in each eye at night BIMATOPROST 51366925442 Active Daniel Wilson MD Active TESSALON PERLES 100 MG CAP 1 to 2 tablets by mouth 3 times daily as needed for cough BENZONATATE 43482495116 No Longer Active Daniel Wilson MD Active PREDNISONE 20 MG TAB 1 po bid 2 days, then daily for 2 days. 2012 PREDNISONE 50777529766 No Longer Active Daniel Wilson MD Active ZITHROMAX Z-LIAM 250 MG TABS 2 today, then 1 daily for 4 days 2011 AZITHROMYCIN 67031255238 No Longer Active Daniel Wilson MD Active PREDNISONE 20 MG TAB 1 po bid 2 days, then daily for 2 days. 2012 PREDNISONE 20 MG TAB 360918 PREDNISONE Inactive TESSALON PERLES 100 MG CAP 1 to 2 tablets by mouth 3 times daily as needed for cough TESSALON PERLES 100 MG CAP 869611 BENZONATATE Inactive PROAIR HFA 108 (90 BASE) MCG/ACT AERS 2 puffs four times a day as needed 2012 PROAIR HFA 108 (90 BASE) MCG/ACT AERS ALBUTEROL SULFATE Inactive ATROVENT 0.06 % SOLUTION 1 to 2 sprays each nostril qid prn runny nose 03/05 ATROVENT 0.06 % SOLUTION 067128 IPRATROPIUM BROMIDE Inactive ZITHROMAX Z-LIAM 250 MG TABS 2 today, then 1 daily for 4 days 2011 ZITHROMAX Z-LIAM 250 MG TABS 0870626 AZITHROMYCIN Inactive TERBINAFINE HCL 250 MG TABS 1 qDay TERBINAFINE HCL 250 MG TABS 943264 TERBINAFINE HCL Inactive Vital Signs Date Name Value Unit Range Description blood pressure, diastolic - 8462-4 81 mm[Hg] BP mercado blood pressure, systolic - 8480-6 127 mm[Hg] BP sys pulse rate E&M - 8867-4 60 /min Heart rate temperature E&M 97.8 [degF] Body temperature weight E&M - 3141-9 230.6 [lb_av] Weight Measured Diagnostic Results Date Name Value Unit Range Description Lab Report: CBC W/DIFF, Comp. Metabolic Panel, HGBA1C, Thyroid Stimulati ... - Chemistry sodium, serum 139 mmol/L 626-951 7678/04/27 carbon dioxide, venous blood 30.7 mmol/L 21.0-32.0 potassium, serum 4.2 mmol/L 3.5-5.2 chloride, serum 103 mmol/L 98-107 blood glucose 101 mg/dL 65-110 urea nitrogen, blood 17 mg/dL 7-18 creatinine, serum 0.88 mg/dL 0.55-1.30 alanine aminotransferase (SGPT), serum 30 U/L 12-78 aspartate aminotransferase (SGOT), serum 16 U/L 15-37 calcium, serum 8.7 mg/dL 8.5-10.1 bilirubin, serum, total 0.40 mg/dL 0.00-1.00 hemoglobin A1C, blood, as % of total hemoglobin 5.6 % 4.3-6.0 TSH 0.34 m[iU]/mL 0.36-3.74 thyroxine, serum, free 0.88 ng/dL 0.76-1.46 Lab Report: CBC W/DIFF, Comp. Metabolic Panel, HGBA1C, Thyroid Stimulati ... - Hematology leukocyte count, blood 5.7 10^3/MM^3 10*3/mm3 4.6-10.2 neutrophils as percent of blood leukocytes 61.2 % 42.2-75.2 monocytes as percent of blood leukocytes 9.2 % 1.7-9.3 lymphocytes as percent of blood leukocytes 25.9 % 20.5-51.1 erythrocyte (RBC) count 4.84 10^6/MM^3 10*6/mm3 4.04-5.48 hemoglobin, blood 14.6 g/dL 12.0-16.0 hematocrit, blood 43.8 % 36.0-46.0 mean corpuscular volume, RBC 91 fL 80-97 mean corpuscular hemoglobin, RBC 30.2 pg 27.0-31.2 mean corpuscular hemoglobin concentration, RBC 33.3 G/DL % 31.8- 35.4 red blood cell distribution width 13.7 % 11.6-14.8 platelet count 324 10^3/MM^3 10*3/mm3 142-424 Lab Report: MICROALB/CREAT W/RATIO - Chemistry albumin/creatinine ratio, urine < 30 mg/g mg/g{creat} 0-29 Lab Report: MICROALB/CREAT W/RATIO - Lab microalbumin, urine 10 0-19 Lab Report: T3, FREE, ESTRADIOL(E2)/4021, PROGESTERONE, Testosterone/LC/ ... - Chemistry testosterone, total 22 ng/dL 2-45 Lab Report: VITAMIN D, 25-HYDROXY/51488 - Chemistry vitamin D 25-hydroxy, serum 47 ng/mL 30-100 Encounters Code Encounter Date Provider Facility CPT-01061 Level 4 Est. Patient 09:51:42 CDT Daniel Wilson MD [facility] CPT-80981 Level 4 Est. Patient 17:36:45 CDT Daniel Wilson MD [facility] CPT-51915 Level 4 Est. Patient 11:11:21 CDT Daniel Wilson MD [facility] CPT-58965 Level 4 Est. Patient 17:38:38 CDT Daniel Wilsno MD [facility] CPT-63364 Level 3 Est. 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 Patient 17:50:06 CDT Daniel Wilson MD [facility] CPT-48911 Level 4 Est. Patient 18:11:39 METAL BURNISHER Daniel Wilson MD [facility] Procedures Code Procedure Name Date Entry Date Standard Description CPT-00664 Venipuncture Draw Fee 08:32:33 CDT CPT-LR Lesion Removal 12:04:40 CDT CPT-05979 Venipuncture Draw Fee 08:33:06 CDT CPT-07843 Venipuncture Draw Fee 08:17:56 CDT CPT-56436 Venipuncture Draw Fee 08:17:16 METAL BURNISHER CPT-11914 Venipuncture Draw Fee 08:04:18 CDT CPT-68127 Venipuncture Draw Fee 08:39:03 METAL BURNISHER
--- OUTSIDE RECORDS SUMMARY | 2018-08-07 18:16 | XMS REPORT | Clinical Summary ---
Author Author Admin, GUSTAVO Organization [facility] Address Unknown Phone Unavailable Allergies, Adverse [...] qid prn runny nose 03/05 IPRATROPIUM BROMIDE 77022762823 No Longer Active Daniel Wilson MD Active PROAIR HFA 108 (90 BASE) MCG/ACT AERS 2 puffs four times a day as needed 2012 ALBUTEROL SULFATE 65840968249 No Longer Active Daniel Wilson MD Active PAROXETINE HCL 20 MG TABS 1 daily for depression PAROXETINE HCL 82242916100 Active Daniel Wilson MD Active LISINOPRIL-HYDROCHLOROTHIAZIDE 10-12.5 MG TABS 1 every morning for high blood pressure LISINOPRIL-HYDROCHLOROTHIAZIDE 21087222623 Active Daniel Wilson MD Active DILTIAZEM HCL ER 240 MG [id number] 1 daily for high blood pressure DILTIAZEM HCL 51523978159 Active Daniel Wilson MD Active TERBINAFINE HCL 250 MG TABS 1 qDay TERBINAFINE HCL 30568323037 No Longer Active Daniel Wilson MD Active PROGESTERONE (150MCG) TESTOSTERONE (2.5MCG) BI-EST 2MG COMP 1 every evening PROGESTERONE (150MCG) TESTOSTERONE (2.5MCG) BI-EST 2MG COMP Active Daniel Wilson MD Active COMPOUNDED T3 (22.5MCG) AND T4 (95MCG) 1 every morning Active Daniel Wilson MD Active D3-50 65579 UNIT CAPS one capsule once a week CHOLECALCIFEROL 88936361456 Active Daniel Wilson MD Active METFORMIN HCL 500 MG TABS 1 tablet by mouth twice daily METFORMIN HCL 40241034224 Active Daniel Wilson MD Active LUMIGAN 0.03 % SOLN one drop in each eye at night BIMATOPROST 17343188195 Active Daniel Wilson MD Active TESSALON PERLES 100 MG CAP 1 to 2 tablets by mouth 3 times daily as needed for cough BENZONATATE 52387752867 No Longer Active Daniel Wilson MD Active PREDNISONE 20 MG TAB 1 po bid 2 days, then daily for 2 days. 2012 PREDNISONE 03416188424 No Longer Active Daniel Wilson MD Active ZITHROMAX Z-LIAM 250 MG TABS 2 today, then 1 daily for 4 days 2011 AZITHROMYCIN 58941635747 No Longer Active Daniel Wilson MD Active PREDNISONE 20 MG TAB 1 po bid 2 days, then daily for 2 days. 2012 PREDNISONE 20 MG TAB 662173 PREDNISONE Inactive TESSALON PERLES 100 MG CAP 1 to 2 tablets by mouth 3 times daily as needed for cough TESSALON PERLES 100 MG CAP 911647 BENZONATATE Inactive PROAIR HFA 108 (90 BASE) MCG/ACT AERS 2 puffs four times a day as needed 2012 PROAIR HFA 108 (90 BASE) MCG/ACT AERS ALBUTEROL SULFATE Inactive ATROVENT 0.06 % SOLUTION 1 to 2 sprays each nostril qid prn runny nose 03/05 ATROVENT 0.06 % SOLUTION 735669 IPRATROPIUM BROMIDE Inactive ZITHROMAX Z-LIAM 250 MG TABS 2 today, then 1 daily for 4 days 2011 ZITHROMAX Z-LIAM 250 MG TABS 3750002 AZITHROMYCIN Inactive TERBINAFINE HCL 250 MG TABS 1 qDay TERBINAFINE HCL 250 MG TABS 496359 TERBINAFINE HCL Inactive Vital Signs Date Name [...] ... - Chemistry sodium, serum 139 mmol/L 805-780 7969/04/27 carbon dioxide, venous blood 30.7 mmol/L 21.0-32.0 [...] 22 ng/dL 2-45 Lab Report: VITAMIN D, 25-HYDROXY/53379 - Chemistry vitamin D 25-hydroxy, serum 47 ng/mL 30-100 Encounters Code Encounter Date Provider Facility CPT-21745 Level 4 Est. Patient 09:51:42 CDT Daniel Wilson MD [facility] CPT-08541 Level 4 Est. Patient 17:36:45 CDT Daniel Wilson MD [facility] CPT-96464 Level 4 Est. Patient 11:11:21 CDT Daniel Wilson MD [facility] CPT-73445 Level 4 Est. Patient 17:38:38 CDT Daniel Wilson MD [facility] CPT-55598 Level 3 Est. Patient 15:33:36 PET AMBASSADOR Radu Snow DO [facility] CPT-25065 Level 3 Est. Patient 17:50:06 CDT Daniel Wilson MD [facility] CPT-60710 Level 4 Est. Patient 18:11:39 PET AMBASSADOR Daniel Wilson MD [facility] Procedures Code Procedure Name Date Entry Date Standard Description CPT-81203 Venipuncture Draw Fee 08:32:33 CDT CPT-LR Lesion Removal 12:04:40 CDT CPT-48759 Venipuncture Draw Fee 08:33:06 CDT CPT-28487 Venipuncture Draw Fee 08:17:56 CDT CPT-03336 Venipuncture Draw Fee 08:17:16 PET AMBASSADOR CPT-64627 Venipuncture Draw Fee 08:04:18 CDT CPT-49685 Venipuncture Draw Fee 08:39:03 PET AMBASSADOR
--- OUTSIDE RECORDS SUMMARY | 2018-08-07 18:17 | XMS REPORT | Clinical Summary ---
Author Author Admin, E Organization [facility] Address Unknown Phone Unavailable Allergies, [...] 146.25 MG ORAL TABS once daily THYROID 99064650911 Active Rosangela Bundy APRN Active TRAVATAN Z 0.004 % OPHTH SOLN 1 drop in each eye nightly TRAVOPROST 73472258738 Active Rosangela Bundy APRN Active ATROVENT 0.06 % SOLUTION 1 to 2 sprays each nostril qid prn runny nose 03/05 IPRATROPIUM BROMIDE 18631123515 No Longer Active Daniel Wilson MD Active PROAIR HFA 108 (90 BASE) MCG/ACT AERS 2 puffs four times a day as needed 2012 ALBUTEROL SULFATE 10672108366 No Longer Active Daniel Wilson MD Active PAROXETINE HCL 20 MG TABS 1 daily for depression PAROXETINE HCL 70759794926 Active Rosangela Bundy APRN Active LISINOPRIL-HYDROCHLOROTHIAZIDE 10-12.5 MG TABS 1 every morning for high blood pressure LISINOPRIL-HYDROCHLOROTHIAZIDE 51127946589 Active Rosangela Bundy APRN Active DILTIAZEM HCL ER 240 MG [id number] 1 daily for high blood pressure DILTIAZEM HCL 92187127324 Active Rosangela Bundy APRN Active TERBINAFINE HCL 250 MG TABS 1 qDay TERBINAFINE HCL 61797281360 No Longer Active Daniel Wilson MD Active PROGESTERONE (150MCG) TESTOSTERONE (2.5MCG) BI-EST 2MG COMP 1 every evening PROGESTERONE (150MCG) TESTOSTERONE (2.5MCG) BI-EST 2MG COMP Active Daniel Wilson MD Active COMPOUNDED T3 (22.5MCG) AND T4 (95MCG) 1 every morning No Longer Active Daniel Wilson MD Active D3-50 37375 UNIT CAPS one capsule once a week CHOLECALCIFEROL 37731901820 Active Daniel Wilson MD Active METFORMIN HCL 500 MG TABS 1 tablet by mouth twice daily METFORMIN HCL 13837128931 Active Daniel Wilson MD Active LUMIGAN 0.03 % SOLN one drop in each eye at night BIMATOPROST 87614952572 No Longer Active Daniel Wilson MD Active TESSALON PERLES 100 MG CAP 1 to 2 tablets by mouth 3 times daily as needed for cough BENZONATATE 35896483854 No Longer Active Daniel Wilson MD Active PREDNISONE 20 MG TAB 1 po bid 2 days, then daily for 2 days. 2012 PREDNISONE 48580259052 No Longer Active Daniel Wilson MD Active ZITHROMAX Z-LIAM 250 MG TABS 2 today, then 1 daily for 4 days 2011 AZITHROMYCIN 99216574510 No Longer Active Daniel Wilson MD Active PREDNISONE 20 MG TAB 1 po bid 2 days, then daily for 2 days. 2012 PREDNISONE 20 MG TAB 755422 PREDNISONE Inactive TESSALON PERLES 100 MG CAP 1 to 2 tablets by mouth 3 times daily as needed for cough TESSALON PERLES 100 MG CAP 885717 BENZONATATE Inactive PROAIR HFA 108 (90 BASE) [...] days 2011 ZITHROMAX Z-LIAM 250 MG TABS 2548563 AZITHROMYCIN Inactive TERBINAFINE HCL 250 MG TABS 1 qDay TERBINAFINE HCL 250 MG TABS 528649 TERBINAFINE HCL Inactive Diagnostic Results Date Name Value Unit Range Description Lab Report: CBC (INCLUDES DIFF/PLT)/6399, COMPREHENSIVE METABOLIC PANEL, ... - Chemistry cholesterol, serum 201 mg/dL 560-175 3973/05/08 HDL cholesterol, serum 82 mg/dL > OR=46 triglyceride, serum, fasting 80 mg/dL <150 LDL cholesterol, serum 103 MG/DL (CALC) mg/dL <130 cholesterol/HDL ratio, serum 2.5 (calc) < OR=5.0 testosterone, total 44 ng/dL 2-45 Lab Report: CBC (INCLUDES DIFF/PLT)/6399, COMPREHENSIVE METABOLIC PANEL, ... - Hematology mean corpuscular hemoglobin, RBC 29.0 pg 27.0-33.0 mean corpuscular hemoglobin concentration, RBC 32.3 G/DL % 32.0- 36.0 red blood cell distribution width 14.7 % 11.0-15.0 platelet count 352 THOUSAND/UL 10*3/mm3 713-321 0171/05/08 mean platelet volume 8.1 fL 7.5-12.5 mean corpuscular volume, RBC 89.9 fL 80.0-100.0 hematocrit, blood 42.2 % 35.0-45.0 hemoglobin, blood 13.6 g/dL 11.7-15.5 erythrocyte (RBC) count 4.70 MILLION/UL 10*6/mm3 3.80-5.10 leukocyte count, blood 5.9 THOUSAND/UL 10*3/mm3 3.8-10.8 Lab Report: MICROALB/CREAT W/RATIO - Chemistry albumin/creatinine ratio, urine <30 mg/g Normal mg/g mg/g{creat} 0-29 Lab Report: MICROALB/CREAT W/RATIO - Lab microalbumin, urine 10 mg/L 0-19 Lab Report: VITAMIN D, 25-HYDROXY/33984 - Chemistry vitamin D 25-hydroxy, serum 111 ng/mL 30-100 Encounters Code Encounter Date Provider Facility CPT-76603 Level 4 Est. Patient 09:51:42 CDT Daniel Wilson MD [facility] CPT-37356 Level 4 Est. Patient 17:36:45 CDT Daniel Wilson MD [facility] CPT-62093 Level 4 Est. Patient 11:11:21 CDT Daniel Wilson MD [facility] CPT-03955 Level 4 Est. Patient 17:38:38 CDT Daniel Wilson MD [facility] CPT-75540 Level 3 Est. 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 Patient 17:50:06 CDT Daniel Wilson MD [facility] CPT-84250 Level 4 Est. Patient 18:11:39 ORNAMENTAL RAIL INSTALLER Daniel Wilson MD [facility] Procedures Code Procedure Name Date Entry Date Standard Description CPT-56435 First Vx - Ix admin via ID IM or jet injects without counseling by physician 13:17:45 CDT CPT-67404 Zostavax Subcutaneous Solution Reconstituted 00018 UNT/0.65ML 11/15 13:17:45 CDT CPT-66183 Venipuncture Draw Fee 10:33:11 CDT CPT-11649 Venipuncture Draw Fee 08:32:33 CDT CPT-LR Lesion Removal 12:04:40 CDT CPT-21397 Venipuncture Draw Fee 08:33:06 CDT CPT-99358 Venipuncture Draw Fee 08:17:56 CDT CPT-73099 Venipuncture Draw Fee 08:17:16 ORNAMENTAL RAIL INSTALLER CPT-76426 Venipuncture Draw Fee 08:04:18 CDT CPT-54803 Venipuncture Draw Fee 08:39:03 ORNAMENTAL RAIL INSTALLER
--- OUTSIDE RECORDS SUMMARY | 2018-08-07 18:17 | XMS REPORT | Clinical Summary ---
Author Author Admin, GUSTAVO Organization [facility] Address Unknown Phone Unavailable Allergies, Adverse [...] qid prn runny nose 03/05 IPRATROPIUM BROMIDE 17418783652 No Longer Active Daniel Wilson MD Active PROAIR HFA 108 (90 BASE) MCG/ACT AERS 2 puffs four times a day as needed 2012 ALBUTEROL SULFATE 20901969190 No Longer Active Daniel Wilson MD Active PAROXETINE HCL 20 MG TABS 1 daily for depression PAROXETINE HCL 81936851858 Active Daniel Wilson MD Active LISINOPRIL-HYDROCHLOROTHIAZIDE 10-12.5 MG TABS 1 every morning for high blood pressure LISINOPRIL-HYDROCHLOROTHIAZIDE 82586990710 Active Daniel Wilson MD Active DILTIAZEM HCL ER 240 MG [id number] 1 daily for high blood pressure DILTIAZEM HCL 54718332785 Active Daniel Wilson MD Active TERBINAFINE HCL 250 MG TABS 1 qDay TERBINAFINE HCL 29121344922 No Longer Active Daniel Wilson MD Active PROGESTERONE (150MCG) TESTOSTERONE (2.5MCG) BI-EST 2MG COMP 1 every evening PROGESTERONE (150MCG) TESTOSTERONE (2.5MCG) BI-EST 2MG COMP Active Daniel Wilson MD Active COMPOUNDED T3 (22.5MCG) AND T4 (95MCG) 1 every morning Active Daniel Wilson MD Active D3-50 69708 UNIT CAPS one capsule once a week CHOLECALCIFEROL 21536037466 Active Daniel Wilson MD Active METFORMIN HCL 500 MG TABS 1 tablet by mouth twice daily METFORMIN HCL 47741109407 Active Daniel Wilson MD Active LUMIGAN 0.03 % SOLN one drop in each eye at night BIMATOPROST 17990827256 Active Daniel Wilson MD Active TESSALON PERLES 100 MG CAP 1 to 2 tablets by mouth 3 times daily as needed for cough BENZONATATE 87846933526 No Longer Active Daniel Wilson MD Active PREDNISONE 20 MG TAB 1 po bid 2 days, then daily for 2 days. 2012 PREDNISONE 89445474833 No Longer Active Daniel Wilson MD Active ZITHROMAX Z-LIAM 250 MG TABS 2 today, then 1 daily for 4 days 2011 AZITHROMYCIN 70504583466 No Longer Active Daniel Wilson MD Active PREDNISONE 20 MG TAB 1 po bid 2 days, then daily for 2 days. 2012 PREDNISONE 20 MG TAB 387103 PREDNISONE Inactive TESSALON PERLES 100 MG CAP 1 to 2 tablets by mouth 3 times daily as needed for cough TESSALON PERLES 100 MG CAP 820422 BENZONATATE Inactive PROAIR HFA 108 (90 BASE) MCG/ACT AERS 2 puffs four times a day as needed 2012 PROAIR HFA 108 (90 BASE) MCG/ACT AERS ALBUTEROL SULFATE Inactive ATROVENT 0.06 % SOLUTION 1 to 2 sprays each nostril qid prn runny nose 03/05 ATROVENT 0.06 % SOLUTION 742032 IPRATROPIUM BROMIDE Inactive ZITHROMAX Z-LIAM 250 MG TABS 2 today, then 1 daily for 4 days 2011 ZITHROMAX Z-LIAM 250 MG TABS 4840576 AZITHROMYCIN Inactive TERBINAFINE HCL 250 MG TABS 1 qDay TERBINAFINE HCL 250 MG TABS 538812 TERBINAFINE HCL Inactive Vital Signs Date Name [...] total hemoglobin 5.5 % 4.3-6.0 Lab Report: MICROALB/CREAT W/RATIO - Chemistry albumin/creatinine ratio, urine < 30 mg/g mg/g{creat} 0-29 Lab Report: MICROALB/CREAT W/RATIO - Lab microalbumin, urine 10 0-19 Lab Report: T3, FREE, ESTRADIOL, PROGESTERONE - Chemistry testosterone, total 50 ng/dL 2-45 Lab Report: Thyroid Stimulating Hormone (L), Free Thyroxine (L), Glucose - Chemistry TSH 0.74 m[iU]/mL 0.36-3.74 thyroxine, serum, free 0.85 ng/dL 0.76-1.46 blood glucose 86 mg/dL 65-110 Encounters Code Encounter Date Provider Facility CPT-31532 Level 4 Est. Patient 09:51:42 CDT Daniel Wilson MD [facility] CPT-23506 Level 4 Est. Patient 17:36:45 CDT Daniel Wilson MD [facility] CPT-45540 Level 4 Est. Patient 11:11:21 CDT Daniel Wilson MD [facility] CPT-51949 Level 4 Est. Patient 17:38:38 CDT Daniel Wilson MD [facility] CPT-13733 Level 3 Est. Patient 15:33:36 CIRCLE EDGER Radu Snow DO [facility] CPT-58630 Level 3 Est. Patient 17:50:06 CDT Daniel Wilson MD [facility] CPT-44878 Level 4 Est. Patient 18:11:39 CIRCLE EDGER Daniel Wilson MD [facility] Procedures Code Procedure Name Date Entry Date Standard Description CPT-27627 Venipuncture Draw Fee 08:32:33 CDT CPT-LR Lesion Removal 12:04:40 CDT CPT-34126 Venipuncture Draw Fee 08:33:06 CDT CPT-68061 Venipuncture Draw Fee 08:17:56 CDT CPT-07924 Venipuncture Draw Fee 08:17:16 CIRCLE EDGER CPT-21888 Venipuncture Draw Fee 08:04:18 CDT CPT-39994 Venipuncture Draw Fee 08:39:03 CIRCLE EDGER
--- OUTSIDE RECORDS SUMMARY | 2018-08-07 18:17 | XMS REPORT | Clinical Summary ---
Author Author Admin, E Organization [facility] Address Unknown Phone Unavailable Allergies, Adverse [...] qid prn runny nose 03/05 IPRATROPIUM BROMIDE 69130257769 No Longer Active Daniel Wilson MD Active PROAIR HFA 108 (90 BASE) MCG/ACT AERS 2 puffs four times a day as needed 2012 ALBUTEROL SULFATE 53653468644 No Longer Active Daniel Wilson MD Active PAROXETINE HCL 20 MG TABS 1 daily for depression PAROXETINE HCL 62501059776 Active STONEY Sol Active LISINOPRIL-HYDROCHLOROTHIAZIDE 10-12.5 MG TABS 1 every morning for high blood pressure LISINOPRIL-HYDROCHLOROTHIAZIDE 93579248370 Active STONEY Sol Active DILTIAZEM HCL ER 240 MG [id number] 1 daily for high blood pressure DILTIAZEM HCL 61020963109 Active Daniel Wilson MD Active TERBINAFINE HCL 250 MG TABS 1 qDay TERBINAFINE HCL 13427126915 No Longer Active Daniel Wilson MD Active PROGESTERONE (150MCG) TESTOSTERONE (2.5MCG) BI-EST 2MG COMP 1 every evening PROGESTERONE (150MCG) TESTOSTERONE (2.5MCG) BI-EST 2MG COMP Active Daniel Wilson MD Active COMPOUNDED T3 (22.5MCG) AND T4 (95MCG) 1 every morning Active Daniel Wilson MD Active D3-50 49526 UNIT CAPS one capsule once a week CHOLECALCIFEROL 29883417184 Active Daniel Wilson MD Active METFORMIN HCL 500 MG TABS 1 tablet by mouth twice daily METFORMIN HCL 98607313648 Active Daniel Wilson MD Active LUMIGAN 0.03 % SOLN one drop in each eye at night BIMATOPROST 31511242368 Active Daniel Wilson MD Active TESSALON PERLES 100 MG CAP 1 to 2 tablets by mouth 3 times daily as needed for cough BENZONATATE 95833018866 No Longer Active Daniel Wilson MD Active PREDNISONE 20 MG TAB 1 po bid 2 days, then daily for 2 days. 2012 PREDNISONE 34507629249 No Longer Active Daniel Wilson MD Active ZITHROMAX Z-LIAM 250 MG TABS 2 today, then 1 daily for 4 days 2011 AZITHROMYCIN 55978295981 No Longer Active Daniel Wilson MD Active PREDNISONE 20 MG TAB 1 po bid 2 days, then daily for 2 days. 2012 PREDNISONE 20 MG TAB 205129 PREDNISONE Inactive TESSALON PERLES 100 MG CAP 1 to 2 tablets by mouth 3 times daily as needed for cough TESSALON PERLES 100 MG CAP 319288 BENZONATATE Inactive PROAIR HFA 108 (90 BASE) [...] days 2011 ZITHROMAX Z-LIAM 250 MG TABS 1778500 AZITHROMYCIN Inactive TERBINAFINE HCL 250 MG TABS 1 qDay TERBINAFINE HCL 250 MG TABS 046420 TERBINAFINE HCL Inactive Diagnostic Results Date Name Value Unit Range Description Lab Report: CBC (INCLUDES DIFF/PLT)/6399, COMPREHENSIVE METABOLIC PANEL, ... - Chemistry cholesterol, serum 201 mg/dL 792-814 3189/05/08 HDL cholesterol, serum 82 mg/dL > OR=46 [...] % 11.0-15.0 platelet count 352 THOUSAND/UL 10*3/mm3 198-740 5383/05/08 mean platelet volume 8.1 fL 7.5-12.5 Lab Report: VITAMIN D, 25-HYDROXY/41397 - Chemistry vitamin D 25-hydroxy, serum 111 ng/mL 30-100 Encounters Code Encounter Date Provider Facility CPT-69401 Level 4 Est. Patient 09:51:42 CDT Daniel Wilson MD [facility] CPT-23271 Level 4 Est. Patient 17:36:45 CDT Daniel Wilson MD [facility] CPT-86640 Level 4 Est. Patient 11:11:21 CDT Daniel Wilson MD [facility] CPT-82924 Level 4 Est. Patient 17:38:38 CDT Daniel Wilson MD [facility] CPT-77564 Level 3 Est. Patient 15:33:36 GLASS CUTTER HAND Radu Snow DO [facility] CPT-02537 Level 3 Est. Patient 17:50:06 CDT Daniel Wilson MD [facility] CPT-22170 Level 4 Est. Patient 18:11:39 GLASS CUTTER HAND Daniel Wilson MD [facility] Procedures Code Procedure Name Date Entry Date Standard Description CPT-39086 Venipuncture Draw Fee 10:33:11 CDT CPT-13504 Venipuncture Draw Fee 08:32:33 CDT CPT-LR Lesion Removal 12:04:40 CDT CPT-46995 Venipuncture Draw Fee 08:33:06 CDT CPT-95884 Venipuncture Draw Fee 08:17:56 CDT CPT-02764 Venipuncture Draw Fee 08:17:16 GLASS CUTTER HAND CPT-33371 Venipuncture Draw Fee 08:04:18 CDT CPT-58574 Venipuncture Draw Fee 08:39:03 GLASS CUTTER HAND
--- OUTSIDE RECORDS SUMMARY | 2018-08-07 18:18 | XMS REPORT | Clinical Summary ---
Author Author Admin, GUSTAVO Organization [facility] Address Unknown Phone Unavailable Allergies, Adverse [...] qid prn runny nose 03/05 IPRATROPIUM BROMIDE 96626018760 No Longer Active Daniel Wilson MD Active PROAIR HFA 108 (90 BASE) MCG/ACT AERS 2 puffs four times a day as needed 2012 ALBUTEROL SULFATE 30897033860 No Longer Active Daniel Wilson MD Active PAROXETINE HCL 20 MG TABS 1 daily for depression PAROXETINE HCL 04708329522 Active Daniel Wilson MD Active LISINOPRIL-HYDROCHLOROTHIAZIDE 10-12.5 MG TABS 1 every morning for high blood pressure LISINOPRIL-HYDROCHLOROTHIAZIDE 33065691782 Active Daniel Wilson MD Active DILTIAZEM HCL ER 240 MG [id number] 1 daily for high blood pressure DILTIAZEM HCL 31798726747 Active Daniel Wilson MD Active TERBINAFINE HCL 250 MG TABS 1 qDay TERBINAFINE HCL 81007868837 No Longer Active Daniel Wilson MD Active PROGESTERONE (150MCG) TESTOSTERONE (2.5MCG) BI-EST 2MG COMP 1 every evening PROGESTERONE (150MCG) TESTOSTERONE (2.5MCG) BI-EST 2MG COMP Active Daniel Wilson MD Active COMPOUNDED T3 (22.5MCG) AND T4 (95MCG) 1 every morning Active Daniel Wilson MD Active D3-50 50937 UNIT CAPS one capsule once a week CHOLECALCIFEROL 90885189081 Active Daniel Wilson MD Active METFORMIN HCL 500 MG TABS 1 tablet by mouth twice daily METFORMIN HCL 50444924738 Active Daniel Wilson MD Active LUMIGAN 0.03 % SOLN one drop in each eye at night BIMATOPROST 00625168024 Active Daniel Wilson MD Active TESSALON PERLES 100 MG CAP 1 to 2 tablets by mouth 3 times daily as needed for cough BENZONATATE 25364548761 No Longer Active Daniel Wilson MD Active PREDNISONE 20 MG TAB 1 po bid 2 days, then daily for 2 days. 2012 PREDNISONE 28057723248 No Longer Active Daniel Wilson MD Active ZITHROMAX Z-LIAM 250 MG TABS 2 today, then 1 daily for 4 days 2011 AZITHROMYCIN 35736322734 No Longer Active Daniel Wilson MD Active PREDNISONE 20 MG TAB 1 po bid 2 days, then daily for 2 days. 2012 PREDNISONE 20 MG TAB 234266 PREDNISONE Inactive TESSALON PERLES 100 MG CAP 1 to 2 tablets by mouth 3 times daily as needed for cough TESSALON PERLES 100 MG CAP 891296 BENZONATATE Inactive PROAIR HFA 108 (90 BASE) MCG/ACT AERS 2 puffs four times a day as needed 2012 PROAIR HFA 108 (90 BASE) MCG/ACT AERS ALBUTEROL SULFATE Inactive ATROVENT 0.06 % SOLUTION 1 to 2 sprays each nostril qid prn runny nose 03/05 ATROVENT 0.06 % SOLUTION 990054 IPRATROPIUM BROMIDE Inactive ZITHROMAX Z-LIAM 250 MG TABS 2 today, then 1 daily for 4 days 2011 ZITHROMAX Z-LIAM 250 MG TABS 9998214 AZITHROMYCIN Inactive TERBINAFINE HCL 250 MG TABS 1 qDay TERBINAFINE HCL 250 MG TABS 904660 TERBINAFINE HCL Inactive Vital Signs Date Name [...] ... - Chemistry sodium, serum 139 mmol/L 535-623 2589/04/27 carbon dioxide, venous blood 30.7 mmol/L 21.0-32.0 [...] count 324 10^3/MM^3 10*3/mm3 142-424 Lab Report: HGBA1C - Chemistry hemoglobin A1C, [...] ng/dL 0.76-1.46 blood glucose 86 mg/dL 65-110 Lab Report: VITAMIN D, 25-HYDROXY/91135 - Chemistry vitamin D 25-hydroxy, serum 47 ng/mL 30-100 Encounters Code Encounter Date Provider Facility CPT-89177 Level 4 Est. Patient 09:51:42 CDT Daniel Wilson MD [facility] CPT-67068 Level 4 Est. Patient 17:36:45 CDT Daniel Wilson MD [facility] CPT-63355 Level 4 Est. Patient 11:11:21 CDT Daniel Wilson MD [facility] CPT-40559 Level 4 Est. Patient 17:38:38 CDT Daniel Wlison MD [facility] CPT-50407 Level 3 Est. Patient 15:33:36 PEDIATRIC DERMATOLOGIST Radu Snow DO [facility] CPT-85828 Level 3 Est. Patient 17:50:06 CDT Daniel Wilson MD [facility] CPT-37097 Level 4 Est. Patient 18:11:39 PEDIATRIC DERMATOLOGIST Daniel Wilson MD [facility] Procedures Code Procedure Name Date Entry Date Standard Description CPT-87970 Venipuncture Draw Fee 08:32:33 CDT CPT-LR Lesion Removal 12:04:40 CDT CPT-71082 Venipuncture Draw Fee 08:33:06 CDT CPT-21619 Venipuncture Draw Fee 08:17:56 CDT CPT-64673 Venipuncture Draw Fee 08:17:16 PEDIATRIC DERMATOLOGIST CPT-43997 Venipuncture Draw Fee 08:04:18 CDT CPT-07337 Venipuncture Draw Fee 08:39:03 PEDIATRIC DERMATOLOGIST
--- OUTSIDE RECORDS SUMMARY | 2018-08-07 18:18 | XMS REPORT | Clinical Summary ---
Author Author Admin, GUSTAVO Organization [facility] Address Unknown Phone Unavailable Allergies, Adverse Reactions, [...] of skin Onychomycosis, toenails 110.1 Active Daniel Wilsno MD Dermatophytosis of nail Adult onset diabetes [...] qid prn runny nose 03/05 IPRATROPIUM BROMIDE 72054875494 No Longer Active Daniel Wilson MD Active PROAIR HFA 108 (90 BASE) MCG/ACT AERS 2 puffs four times a day as needed 2012 ALBUTEROL SULFATE 34778416191 No Longer Active Daniel Wilson MD Active PAROXETINE HCL 20 MG TABS 1 daily for depression PAROXETINE HCL 39472112877 Active Daniel Wilson MD Active LISINOPRIL-HYDROCHLOROTHIAZIDE 10-12.5 MG TABS 1 every morning for high blood pressure LISINOPRIL-HYDROCHLOROTHIAZIDE 83291561148 Active Daniel Wilson MD Active DILTIAZEM HCL ER 240 MG [id number] 1 daily for high blood pressure DILTIAZEM HCL 54498931810 Active Daniel Wilson MD Active TERBINAFINE HCL 250 MG TABS 1 qDay TERBINAFINE HCL 01977111158 No Longer Active Daniel Wilson MD Active PROGESTERONE (150MCG) TESTOSTERONE (2.5MCG) BI-EST 2MG COMP 1 every evening PROGESTERONE (150MCG) TESTOSTERONE (2.5MCG) BI-EST 2MG COMP Active Daniel Wilson MD Active COMPOUNDED T3 (22.5MCG) AND T4 (95MCG) 1 every morning Active Daniel Wilson MD Active D3-50 42303 UNIT CAPS one capsule once a week CHOLECALCIFEROL 02671765959 Active Daniel Wilson MD Active METFORMIN HCL 500 MG TABS 1 tablet by mouth twice daily METFORMIN HCL 24843479082 Active Daniel Wilson MD Active LUMIGAN 0.03 % SOLN one drop in each eye at night BIMATOPROST 90818841866 Active Daniel Wilson MD Active TESSALON PERLES 100 MG CAP 1 to 2 tablets by mouth 3 times daily as needed for cough BENZONATATE 68971929978 No Longer Active Daniel Wilson MD Active PREDNISONE 20 MG TAB 1 po bid 2 days, then daily for 2 days. 2012 PREDNISONE 69067763188 No Longer Active Daniel Wilson MD Active ZITHROMAX Z-LIAM 250 MG TABS 2 today, then 1 daily for 4 days 2011 AZITHROMYCIN 02095055957 No Longer Active Daniel Wilson MD Active PREDNISONE 20 MG TAB 1 po bid 2 days, then daily for 2 days. 2012 PREDNISONE 20 MG TAB 475976 PREDNISONE Inactive TESSALON PERLES 100 MG CAP 1 to 2 tablets by mouth 3 times daily as needed for cough TESSALON PERLES 100 MG CAP 873622 BENZONATATE Inactive PROAIR HFA 108 (90 BASE) MCG/ACT AERS 2 puffs four times a day as needed 2012 PROAIR HFA 108 (90 BASE) MCG/ACT AERS ALBUTEROL SULFATE Inactive ATROVENT 0.06 % SOLUTION 1 to 2 sprays each nostril qid prn runny nose 03/05 ATROVENT 0.06 % SOLUTION 489255 IPRATROPIUM BROMIDE Inactive ZITHROMAX Z-LIAM 250 MG TABS 2 today, then 1 daily for 4 days 2011 ZITHROMAX Z-LIAM 250 MG TABS 7672014 AZITHROMYCIN Inactive TERBINAFINE HCL 250 MG TABS 1 qDay TERBINAFINE HCL 250 MG TABS 252873 TERBINAFINE HCL Inactive Vital Signs Date Name [...] 65-110 Encounters Code Encounter Date Provider Facility CPT-19875 Level 4 Est. Patient 09:51:42 CDT Daniel Wilson MD [facility] CPT-24200 Level 4 Est. Patient 17:36:45 CDT Daniel Wilson MD [facility] CPT-61259 Level 4 Est. Patient 11:11:21 CDT Daniel Wilson MD [facility] CPT-68310 Level 4 Est. Patient 17:38:38 CDT Daniel Wilson MD [facility] CPT-50462 Level 3 Est. Patient 15:33:36 KITCHEN CLEANER Radu Snow DO [facility] CPT-79687 Level 3 Est. Patient 17:50:06 CDT Daniel Wilson MD [facility] CPT-34615 Level 4 Est. Patient 18:11:39 KITCHEN CLEANER Daniel Wilson MD [facility] Procedures Code Procedure Name Date Entry Date Standard Description CPT-23297 Venipuncture Draw Fee 08:32:33 CDT CPT-LR Lesion Removal 12:04:40 CDT CPT-46314 Venipuncture Draw Fee 08:33:06 CDT CPT-52753 Venipuncture Draw Fee 08:17:56 CDT CPT-88746 Venipuncture Draw Fee 08:17:16 KITCHEN CLEANER CPT-26788 Venipuncture Draw Fee 08:04:18 CDT CPT-47968 Venipuncture Draw Fee 08:39:03 KITCHEN CLEANER
--- OUTSIDE RECORDS SUMMARY | 2018-08-07 18:18 | XMS REPORT | Clinical Summary ---
Author Author Admin, E Organization [facility] Address Unknown Phone Unavailable Allergies, [...] of nail Adult onset diabetes mellitus 250.00 Active Diana Faux RMA Diabetes mellitus without mention of complication, type II or unspecified type, not stated as uncontrolled High risk medication V58.69 Active Diana Faux RMA Long-term (current) use of other medications PHARYNGITIS ICD-462 Inactive Daniel Wilson MD URI ICD-465.9 Inactive Daniel Wilson MD LARYNGITIS, ACUTE ICD-464.00 Inactive Daniel Wilson MD Medication List Medication Instructions Start Date Stop Date Generic Name NDC Status Provider Patient Instruction PAROXETINE HCL 20 MG TABS 1 daily for depression PAROXETINE HCL 94049379383 Active Daniel Wilson MD Active LISINOPRIL-HYDROCHLOROTHIAZIDE 10-12.5 MG TABS 1 every morning for high blood pressure LISINOPRIL-HYDROCHLOROTHIAZIDE 69195280727 Active Rosangela Bundy APRN Active DILTIAZEM HCL ER 240 MG [id number] 1 daily for high blood pressure DILTIAZEM HCL 16488008812 Active Daniel Wilson MD Active TERBINAFINE HCL 250 MG TABS 1 qDay TERBINAFINE HCL 56729069786 No Longer Active Daniel Wilson MD Active PROGESTERONE (150MCG) TESTOSTERONE (2.5MCG) BI-EST 2MG COMP 1 every evening PROGESTERONE (150MCG) TESTOSTERONE (2.5MCG) BI-EST 2MG COMP Active Daniel Wilson MD Active COMPOUNDED T3 (22.5MCG) AND T4 (95MCG) 1 every morning Active Daniel Wilson MD Active D3-50 57105 UNIT CAPS one capsule once a week CHOLECALCIFEROL 84308825600 Active Daniel Wilson MD Active METFORMIN HCL 500 MG TABS 1 tablet by mouth twice daily METFORMIN HCL 14386318201 Active Daniel Wilson MD Active PROAIR HFA 108 (90 BASE) MCG/ACT AERS 2 puffs four times a day as needed 2012 ALBUTEROL SULFATE 87446050747 Active Daniel Wilson MD Active LUMIGAN 0.03 % SOLN one drop in each eye at night BIMATOPROST 70904866672 Active Daniel Wilson MD Active TESSALON PERLES 100 MG CAP 1 to 2 tablets by mouth 3 times daily as needed for cough BENZONATATE 94586873008 No Longer Active Daniel Wilson MD Active PREDNISONE 20 MG TAB 1 po bid 2 days, then daily for 2 days. 2012 PREDNISONE 43907040675 No Longer Active Daniel Wilson MD Active ATROVENT 0.06 % SOLUTION 1 to 2 sprays each nostril qid prn runny nose 03/05 IPRATROPIUM BROMIDE 05515585522 Active Daniel Wilson MD Active ZITHROMAX Z-LIAM 250 MG TABS 2 today, then 1 daily for 4 days 2011 AZITHROMYCIN 21673156082 No Longer Active Daniel Wilson MD Active PREDNISONE 20 MG TAB 1 po bid 2 days, then daily for 2 days. 2012 PREDNISONE 20 MG TAB 565957 PREDNISONE Inactive TESSALON PERLES 100 MG CAP 1 to 2 tablets by mouth 3 times daily as needed for cough TESSALON PERLES 100 MG CAP 340448 BENZONATATE Inactive ZITHROMAX Z-LIAM 250 MG TABS 2 today, then 1 daily for 4 days 2011 ZITHROMAX Z-LIAM 250 MG TABS 5994158 AZITHROMYCIN Inactive TERBINAFINE HCL 250 MG TABS 1 qDay TERBINAFINE HCL 250 MG TABS 307188 TERBINAFINE HCL Inactive Vital Signs Date Name [...] 65-110 Encounters Code Encounter Date Provider Facility CPT-78870 Level 4 Est. Patient 17:36:45 CDT Daniel Wilson MD [facility] CPT-29907 Level 4 Est. Patient 11:11:21 CDT Daniel Wilson MD [facility] CPT-53909 Level 4 Est. Patient 17:38:38 CDT Daniel Wilson MD [facility] CPT-00066 Level 3 Est. Patient 15:33:36 SPORTS INTERN Radu Snow DO [facility] CPT-16492 Level 3 Est. Patient 17:50:06 CDT Daniel Wilson MD [facility] CPT-41828 Level 4 Est. Patient 18:11:39 SPORTS INTERN Daniel Wilson MD [facility] Procedures Code Procedure Name Date Entry Date Standard Description CPT-64704 Venipuncture Draw Fee 08:32:33 CDT CPT-LR Lesion Removal 12:04:40 CDT CPT-98073 Venipuncture Draw Fee 08:33:06 CDT CPT-93192 Venipuncture Draw Fee 08:17:56 CDT CPT-47553 Venipuncture Draw Fee 08:17:16 SPORTS INTERN CPT-20255 Venipuncture Draw Fee 08:04:18 CDT CPT-05633 Venipuncture Draw Fee 08:39:03 SPORTS INTERN
--- OUTSIDE RECORDS SUMMARY | 2018-08-07 18:19 | XMS REPORT | Clinical Summary ---
Author Author Admin, GUSTAVO Organization [facility] Address Unknown Phone Unavailable Allergies, Adverse [...] osteoporosis V82.81 Active Diana Sy [facility] Screening for osteoporosis Neoplasm of uncertain behavior [...] TABS 1 daily for depression PAROXETINE HCL 27459784211 Active Daniel Wilson MD Active LISINOPRIL-HYDROCHLOROTHIAZIDE 10-12.5 MG TABS 1 every morning for high blood pressure LISINOPRIL-HYDROCHLOROTHIAZIDE 94914737700 Active Daniel Wilson MD Active DILTIAZEM HCL ER 240 MG [id number] 1 daily for high blood pressure DILTIAZEM HCL 63100041031 Active Daniel Wilson MD Active TERBINAFINE HCL 250 MG TABS 1 qDay TERBINAFINE HCL 49076265671 No Longer Active Daniel Wilson MD Active PROGESTERONE (150MCG) TESTOSTERONE (2.5MCG) BI-EST 2MG COMP 1 every evening PROGESTERONE (150MCG) TESTOSTERONE (2.5MCG) BI-EST 2MG COMP Active Daniel Wilson MD Active COMPOUNDED T3 (22.5MCG) AND T4 (95MCG) 1 every morning Active Daniel Wilson MD Active D3-50 59531 UNIT CAPS one capsule once a week CHOLECALCIFEROL 96149956750 Active Daniel Wilson MD Active METFORMIN HCL 500 MG TABS 1 tablet by mouth twice daily METFORMIN HCL 34069136449 Active Daniel Wilson MD Active PROAIR HFA 108 (90 BASE) MCG/ACT AERS 2 puffs four times a day as needed 2012 ALBUTEROL SULFATE 67173491321 Active Daniel Wilson MD Active LUMIGAN 0.03 % SOLN one drop in each eye at night BIMATOPROST 87055838654 Active Daniel Wilson MD Active TESSALON PERLES 100 MG CAP 1 to 2 tablets by mouth 3 times daily as needed for cough BENZONATATE 59828793452 No Longer Active Daniel Wilson MD Active PREDNISONE 20 MG TAB 1 po bid 2 days, then daily for 2 days. 2012 PREDNISONE 48794929288 No Longer Active Daniel Wilson MD Active ATROVENT 0.06 % SOLUTION 1 to 2 sprays each nostril qid prn runny nose 03/05 IPRATROPIUM BROMIDE 46194302078 Active Daniel Wilson MD Active ZITHROMAX Z-LIAM 250 MG TABS 2 today, then 1 daily for 4 days 2011 AZITHROMYCIN 78481486953 No Longer Active Daniel Wilson MD Active PREDNISONE 20 MG TAB 1 po bid 2 days, then daily for 2 days. 2012 PREDNISONE 20 MG TAB 497511 PREDNISONE Inactive TESSALON PERLES 100 MG CAP 1 to 2 tablets by mouth 3 times daily as needed for cough TESSALON PERLES 100 MG CAP 569459 BENZONATATE Inactive ZITHROMAX Z-LIAM 250 MG TABS 2 today, then 1 daily for 4 days 2011 ZITHROMAX Z-LIAM 250 MG TABS 2411545 AZITHROMYCIN Inactive TERBINAFINE HCL 250 MG TABS 1 qDay TERBINAFINE HCL 250 MG TABS 801606 TERBINAFINE HCL Inactive Vital Signs Date Name Value Unit Range Description blood pressure, diastolic - 8462-4 84 mm[Hg] BP mercado blood pressure, systolic - 8480-6 149 mm[Hg] BP sys pulse rate E&M - 8867-4 64 /min Heart rate temperature E&M 97.1 [degF] Body temperature weight E&M - 3141-9 212.8 [lb_av] Weight Measured blood pressure, diastolic - 8462-4 88 mm[Hg] BP mercado blood pressure, systolic - 8480-6 151 mm[Hg] BP sys height E&M - 8302-2 66 [in_us] Bdy height pulse rate E&M - 8867-4 59 /min Heart rate temperature E&M 98.2 [degF] Body temperature weight E&M - 3141-9 212.2 [lb_av] Weight Measured Diagnostic Results Date Name [...] 65-110 Encounters Code Encounter Date Provider Facility CPT-65645 Level 4 Est. Patient 17:36:45 CDT Daniel Wilson MD [facility] CPT-88491 Level 4 Est. Patient 11:11:21 CDT Daniel Wilson MD [facility] CPT-38072 Level 4 Est. Patient 17:38:38 CDT Daniel Wilson MD [facility] CPT-92427 Level 3 Est. Patient 15:33:36 LONG TERM CARE SOCIAL WORKER Radu Snow DO [facility] CPT-41935 Level 3 Est. Patient 17:50:06 CDT Daniel Wilson MD [facility] CPT-71982 Level 4 Est. Patient 18:11:39 LONG TERM CARE SOCIAL WORKER Daniel Wilson MD [facility] Procedures Code Procedure Name Date Entry Date Standard Description CPT-LR Lesion Removal 12:04:40 CDT CPT-10091 Venipuncture Draw Fee 08:33:06 CDT CPT-40073 Venipuncture Draw Fee 08:17:56 CDT CPT-21481 Venipuncture Draw Fee 08:17:16 LONG TERM CARE SOCIAL WORKER CPT-43318 Venipuncture Draw Fee 08:04:18 CDT CPT-61336 Venipuncture Draw Fee 08:39:03 LONG TERM CARE SOCIAL WORKER
--- OUTSIDE RECORDS SUMMARY | 2018-08-07 18:19 | XMS REPORT | Clinical Summary ---
Author Author Admin, E Organization [facility] Address Unknown Phone Unavailable Allergies, Adverse [...] 146.25 MG ORAL TABS once daily THYROID 87892472234 Active Rosangela Bundy APRN Active TRAVATAN Z 0.004 % OPHTH SOLN 1 drop in each eye nightly TRAVOPROST 25390450916 Active Rosangela Bundy APRN Active ATROVENT 0.06 % SOLUTION 1 to 2 sprays each nostril qid prn runny nose 03/05 IPRATROPIUM BROMIDE 59250440329 No Longer Active Daniel Wilson MD Active PROAIR HFA 108 (90 BASE) MCG/ACT AERS 2 puffs four times a day as needed 2012 ALBUTEROL SULFATE 56155895973 No Longer Active Daniel Wilson MD Active PAROXETINE HCL 20 MG TABS 1 daily for depression PAROXETINE HCL 75371392071 Active Rosangela Bundy APRN Active LISINOPRIL-HYDROCHLOROTHIAZIDE 10-12.5 MG TABS 1 every morning for high blood pressure LISINOPRIL-HYDROCHLOROTHIAZIDE 09383569647 Active Rosangela Bundy APRN Active DILTIAZEM HCL ER 240 MG [id number] 1 daily for high blood pressure DILTIAZEM HCL 59424503537 Active Rosangela Bundy APRN Active TERBINAFINE HCL 250 MG TABS 1 qDay TERBINAFINE HCL 23577596837 No Longer Active Daniel Wilson MD Active PROGESTERONE (150MCG) TESTOSTERONE (2.5MCG) BI-EST 2MG COMP 1 every evening PROGESTERONE (150MCG) TESTOSTERONE (2.5MCG) BI-EST 2MG COMP Active Daniel Wilson MD Active COMPOUNDED T3 (22.5MCG) AND T4 (95MCG) 1 every morning No Longer Active Daniel Wilson MD Active D3-50 31351 UNIT CAPS one capsule once a week CHOLECALCIFEROL 83057944672 Active Daniel Wilson MD Active METFORMIN HCL 500 MG TABS 1 tablet by mouth twice daily METFORMIN HCL 89347386996 Active Daniel Wilson MD Active LUMIGAN 0.03 % SOLN one drop in each eye at night BIMATOPROST 85173308426 No Longer Active Daniel Wilson MD Active TESSALON PERLES 100 MG CAP 1 to 2 tablets by mouth 3 times daily as needed for cough BENZONATATE 16943971479 No Longer Active Daniel Wilson MD Active PREDNISONE 20 MG TAB 1 po bid 2 days, then daily for 2 days. 2012 PREDNISONE 98023224795 No Longer Active Daniel Wilson MD Active ZITHROMAX Z-LIAM 250 MG TABS 2 today, then 1 daily for 4 days 2011 AZITHROMYCIN 99098589707 No Longer Active Daniel Wilson MD Active PREDNISONE 20 MG TAB 1 po bid 2 days, then daily for 2 days. 2012 PREDNISONE 20 MG TAB 827205 PREDNISONE Inactive TESSALON PERLES 100 MG CAP 1 to 2 tablets by mouth 3 times daily as needed for cough TESSALON PERLES 100 MG CAP 821634 BENZONATATE Inactive PROAIR HFA 108 (90 BASE) [...] days 2011 ZITHROMAX Z-LIAM 250 MG TABS 6044802 AZITHROMYCIN Inactive TERBINAFINE HCL 250 MG TABS 1 qDay TERBINAFINE HCL 250 MG TABS 674999 TERBINAFINE HCL Inactive Diagnostic Results Date Name Value Unit Range Description Lab Report: CBC (INCLUDES DIFF/PLT)/6399, COMPREHENSIVE METABOLIC PANEL, ... - Chemistry cholesterol, serum 201 mg/dL 312-647 8131/05/08 HDL cholesterol, serum 82 mg/dL > OR=46 [...] % 11.0-15.0 platelet count 352 THOUSAND/UL 10*3/mm3 569-461 1841/05/08 mean platelet volume 8.1 fL 7.5-12.5 Lab Report: VITAMIN D, 25-HYDROXY/38624 - Chemistry vitamin D 25-hydroxy, serum 111 ng/mL 30-100 Encounters Code Encounter Date Provider Facility CPT-65683 Level 4 Est. Patient 09:51:42 CDT Daniel Wilson MD [facility] CPT-17897 Level 4 Est. Patient 17:36:45 CDT Daniel Wilson MD [facility] CPT-18478 Level 4 Est. Patient 11:11:21 CDT Daniel Wilson MD [facility] CPT-99728 Level 4 Est. Patient 17:38:38 CDT Daniel Wilson MD [facility] CPT-72950 Level 3 Est. Patient 15:33:36 BROADLOOM WEAVER Radu Snow DO [facility] CPT-24897 Level 3 Est. Patient 17:50:06 CDT Daniel Wilson MD [facility] CPT-78571 Level 4 Est. Patient 18:11:39 BROADLOOM WEAVER Daniel Wilson MD [facility] Procedures Code Procedure Name Date Entry Date Standard Description CPT-03057 First Vx - Ix admin via ID IM or jet injects without counseling by physician 13:17:45 CDT CPT-66085 Zostavax Subcutaneous Solution Reconstituted 13964 UNT/0.65ML 11/15 13:17:45 CDT CPT-87375 Venipuncture Draw Fee 10:33:11 CDT CPT-49065 Venipuncture Draw Fee 08:32:33 CDT CPT-LR Lesion Removal 12:04:40 CDT CPT-70399 Venipuncture Draw Fee 08:33:06 CDT CPT-52560 Venipuncture Draw Fee 08:17:56 CDT CPT-83957 Venipuncture Draw Fee 08:17:16 BROADLOOM WEAVER CPT-05085 Venipuncture Draw Fee 08:04:18 CDT CPT-12355 Venipuncture Draw Fee 08:39:03 BROADLOOM WEAVER
--- OUTSIDE RECORDS SUMMARY | 2018-08-07 18:19 | XMS REPORT | Clinical Summary ---
Author Author Admin, GUSTAVO Organization [facility] Address Unknown Phone Unavailable Allergies, Adverse [...] 146.25 MG ORAL TABS once daily THYROID 83867063174 Active Rosangela Bundy APRN Active TRAVATAN Z 0.004 % OPHTH SOLN 1 drop in each eye nightly TRAVOPROST 87487823236 Active Rosangela Bundy APRN Active ATROVENT 0.06 % SOLUTION 1 to 2 sprays each nostril qid prn runny nose 03/05 IPRATROPIUM BROMIDE 07082895490 No Longer Active Daniel Wilson MD Active PROAIR HFA 108 (90 BASE) MCG/ACT AERS 2 puffs four times a day as needed 2012 ALBUTEROL SULFATE 07961598217 No Longer Active Daniel Wilson MD Active PAROXETINE HCL 20 MG TABS 1 daily for depression PAROXETINE HCL 49128430036 Active Rosangela Bundy APRN Active LISINOPRIL-HYDROCHLOROTHIAZIDE 10-12.5 MG TABS 1 every morning for high blood pressure LISINOPRIL-HYDROCHLOROTHIAZIDE 52025065671 Active Rosangela Bundy APRN Active DILTIAZEM HCL ER 240 MG [id number] 1 daily for high blood pressure DILTIAZEM HCL 36292868848 Active Rosangela Bundy APRN Active TERBINAFINE HCL 250 MG TABS 1 qDay TERBINAFINE HCL 08820330718 No Longer Active Daniel Wilson MD Active PROGESTERONE (150MCG) TESTOSTERONE (2.5MCG) BI-EST 2MG COMP 1 every evening PROGESTERONE (150MCG) TESTOSTERONE (2.5MCG) BI-EST 2MG COMP Active Daniel Wilson MD Active COMPOUNDED T3 (22.5MCG) AND T4 (95MCG) 1 every morning No Longer Active Daniel Wilson MD Active D3-50 96845 UNIT CAPS one capsule once a week CHOLECALCIFEROL 11241869399 Active Daniel Wilson MD Active METFORMIN HCL 500 MG TABS 1 tablet by mouth twice daily METFORMIN HCL 97954491167 Active Daniel Wilson MD Active LUMIGAN 0.03 % SOLN one drop in each eye at night BIMATOPROST 32480159928 No Longer Active Daniel Wilson MD Active TESSALON PERLES 100 MG CAP 1 to 2 tablets by mouth 3 times daily as needed for cough BENZONATATE 32548132162 No Longer Active Daniel Wilson MD Active PREDNISONE 20 MG TAB 1 po bid 2 days, then daily for 2 days. 2012 PREDNISONE 91877237660 No Longer Active Daniel Wilson MD Active ZITHROMAX Z-LIAM 250 MG TABS 2 today, then 1 daily for 4 days 2011 AZITHROMYCIN 76277353485 No Longer Active Daniel Wilson MD Active PREDNISONE 20 MG TAB 1 po bid 2 days, then daily for 2 days. 2012 PREDNISONE 20 MG TAB 896050 PREDNISONE Inactive TESSALON PERLES 100 MG CAP 1 to 2 tablets by mouth 3 times daily as needed for cough TESSALON PERLES 100 MG CAP 455759 BENZONATATE Inactive PROAIR HFA 108 (90 BASE) [...] days 2011 ZITHROMAX Z-LIAM 250 MG TABS 9358035 AZITHROMYCIN Inactive TERBINAFINE HCL 250 MG TABS 1 qDay TERBINAFINE HCL 250 MG TABS 736165 TERBINAFINE HCL Inactive Vital Signs Date Name [...] ... - Chemistry cholesterol, serum 201 mg/dL 305-281 7807/05/08 HDL cholesterol, serum 82 mg/dL > OR=46 [...] % 11.0-15.0 platelet count 352 THOUSAND/UL 10*3/mm3 939-142 4641/05/08 mean platelet volume 8.1 fL 7.5-12.5 Lab Report: MICROALB/CREAT W/RATIO - Chemistry albumin/creatinine ratio, urine <30 mg/g Normal mg/g mg/g{creat} 0-29 Lab Report: MICROALB/CREAT W/RATIO - Lab microalbumin, urine 10 mg/L 0-19 Lab Report: VITAMIN D, 25-HYDROXY/57997 - Chemistry vitamin D 25-hydroxy, serum 111 ng/mL 30-100 Encounters Code Encounter Date Provider Facility CPT-78352 Level 4 Est. Patient 22:48:05 CDT Rosangela Bundy APRN [facility] CPT-28480 Level 4 Est. Patient 09:51:42 CDT Daniel Wilson MD [facility] CPT-89177 Level 4 Est. Patient 17:36:45 CDT Daniel Wilson MD [facility] CPT-70302 Level 4 Est. Patient 11:11:21 CDT Daniel Wilson MD [facility] CPT-12186 Level 4 Est. Patient 17:38:38 CDT Daniel Wilson MD [facility] CPT-08141 Level 3 Est. 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 Patient 17:50:06 CDT Daniel Wilson MD [facility] CPT-36423 Level 4 Est. Patient 18:11:39 BRAZING FURNACE OPERATOR Daniel Wilson MD [facility] Procedures Code Procedure Name Date Entry Date Standard Description CPT-57720 First Vx - Ix admin via ID IM or jet injects without counseling by physician 13:17:45 CDT CPT-89884 Zostavax Subcutaneous Solution Reconstituted 30217 UNT/0.65ML 11/15 13:17:45 CDT CPT-35826 Venipuncture Draw Fee 10:33:11 CDT CPT-27487 Venipuncture Draw Fee 08:32:33 CDT CPT-LR Lesion Removal 12:04:40 CDT CPT-28952 Venipuncture Draw Fee 08:33:06 CDT CPT-84244 Venipuncture Draw Fee 08:17:56 CDT CPT-44980 Venipuncture Draw Fee 08:17:16 BRAZING FURNACE OPERATOR CPT-36223 Venipuncture Draw Fee 08:04:18 CDT CPT-51515 Venipuncture Draw Fee 08:39:03 BRAZING FURNACE OPERATOR
--- OUTSIDE RECORDS SUMMARY | 2018-08-07 18:20 | XMS REPORT | Clinical Summary ---
Author Author Admin, GUSTAVO Organization [facility] Address Unknown Phone Unavailable Allergies, Adverse Reactions, [...] qid prn runny nose 03/05 IPRATROPIUM BROMIDE 07803014901 No Longer Active Daniel Wilson MD Active PROAIR HFA 108 (90 BASE) MCG/ACT AERS 2 puffs four times a day as needed 2012 ALBUTEROL SULFATE 89028008918 No Longer Active Daniel Wilson MD Active PAROXETINE HCL 20 MG TABS 1 daily for depression PAROXETINE HCL 35075283605 Active Daniel Wilson MD Active LISINOPRIL-HYDROCHLOROTHIAZIDE 10-12.5 MG TABS 1 every morning for high blood pressure LISINOPRIL-HYDROCHLOROTHIAZIDE 33677146396 Active Daniel Wilson MD Active DILTIAZEM HCL ER 240 MG [id number]-UUB 1 daily for high blood pressure DILTIAZEM HCL 08285841887 Active Daniel Wilson MD Active TERBINAFINE HCL 250 MG TABS 1 qDay TERBINAFINE HCL 72669733730 No Longer Active Daniel Wilson MD Active PROGESTERONE (150MCG) TESTOSTERONE (2.5MCG) BI-EST 2MG COMP 1 every evening PROGESTERONE (150MCG) TESTOSTERONE (2.5MCG) BI-EST 2MG COMP Active Daniel Wilson MD Active COMPOUNDED T3 (22.5MCG) AND T4 (95MCG) 1 every morning Active Daniel Wilson MD Active D3-50 76709 UNIT CAPS one capsule once a week CHOLECALCIFEROL 88077513307 Active Daniel Wilson MD Active METFORMIN HCL 500 MG TABS 1 tablet by mouth twice daily METFORMIN HCL 74822761661 Active Daniel Wilson MD Active LUMIGAN 0.03 % SOLN one drop in each eye at night BIMATOPROST 65681269879 Active Daniel Wilson MD Active TESSALON PERLES 100 MG CAP 1 to 2 tablets by mouth 3 times daily as needed for cough BENZONATATE 27243556357 No Longer Active Daniel Wilson MD Active PREDNISONE 20 MG TAB 1 po bid 2 days, then daily for 2 days. 2012 PREDNISONE 29806861749 No Longer Active Daniel Wilson MD Active ZITHROMAX Z-LIAM 250 MG TABS 2 today, then 1 daily for 4 days 2011 AZITHROMYCIN 06933083731 No Longer Active Daniel Wilson MD Active PREDNISONE 20 MG TAB 1 po bid 2 days, then daily for 2 days. 2012 PREDNISONE 20 MG TAB 700348 PREDNISONE Inactive TESSALON PERLES 100 MG CAP 1 to 2 tablets by mouth 3 times daily as needed for cough TESSALON PERLES 100 MG CAP 393119 BENZONATATE Inactive PROAIR HFA 108 (90 BASE) [...] days 2011 ZITHROMAX Z-LIAM 250 MG TABS 8411041 AZITHROMYCIN Inactive TERBINAFINE HCL 250 MG TABS 1 qDay TERBINAFINE HCL 250 MG TABS 691197 TERBINAFINE HCL Inactive Diagnostic Results Date Name Value Unit Range Description Lab Report: CBC (INCLUDES DIFF/PLT)/6399, COMPREHENSIVE METABOLIC PANEL, ... - Chemistry cholesterol, serum 201 mg/dL 407-840 5946/05/08 HDL cholesterol, serum 82 mg/dL > OR=46 [...] % 11.0-15.0 platelet count 352 THOUSAND/UL 10*3/mm3 727-319 9793/05/08 mean platelet volume 8.1 fL 7.5-12.5 Lab Report: VITAMIN D, 25-HYDROXY/92307 - Chemistry vitamin D 25-hydroxy, serum 111 ng/mL 30-100 Encounters Code Encounter Date Provider Facility CPT-93055 Level 4 Est. Patient 09:51:42 CDT Daniel Wilson MD [facility] CPT-43563 Level 4 Est. Patient 17:36:45 CDT Daniel Wilson MD [facility] CPT-91480 Level 4 Est. Patient 11:11:21 CDT Daniel Wilson MD [facility] CPT-45735 Level 4 Est. Patient 17:38:38 CDT Daniel Wilson MD [facility] CPT-65465 Level 3 Est. 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 Patient 17:50:06 CDT Daniel Wilson MD [facility] CPT-51625 Level 4 Est. Patient 18:11:39 RAIL CAR WELDER Daniel Wilson MD [facility] Procedures Code Procedure Name Date Entry Date Standard Description CPT-19870 Venipuncture Draw Fee 10:33:11 CDT CPT-56889 Venipuncture Draw Fee 08:32:33 CDT CPT-LR Lesion Removal 12:04:40 CDT CPT-65972 Venipuncture Draw Fee 08:33:06 CDT CPT-49007 Venipuncture Draw Fee 08:17:56 CDT CPT-16833 Venipuncture Draw Fee 08:17:16 RAIL CAR WELDER CPT-04607 Venipuncture Draw Fee 08:04:18 CDT CPT-92019 Venipuncture Draw Fee 08:39:03 RAIL CAR WELDER
--- OUTSIDE RECORDS SUMMARY | 2018-08-07 18:20 | XMS REPORT | Clinical Summary ---
Author Author Admin, E Organization [facility] Address Unknown Phone Unavailable Allergies, [...] Active Rosangela Bundy APRN Open-angle glaucoma, unspecified LONG-TERM (CURRENT) USE OF OTHER MEDICATIONS ICD-V58.69 [...] 146.25 MG ORAL TABS once daily THYROID 49679955857 Active Rosangela Bundy APRN Active TRAVATAN Z 0.004 % OPHTH SOLN 1 drop in each eye nightly TRAVOPROST 80104904357 Active Rosangela Bunyd APRN Active ATROVENT 0.06 % SOLUTION 1 to 2 sprays each nostril qid prn runny nose 03/05 IPRATROPIUM BROMIDE 62637383481 No Longer Active Daniel Wilson MD Active PROAIR HFA 108 (90 BASE) MCG/ACT AERS 2 puffs four times a day as needed 2012 ALBUTEROL SULFATE 06192337285 No Longer Active Daniel Wilson MD Active PAROXETINE HCL 20 MG TABS 1 daily for depression PAROXETINE HCL 77195586123 Active Rosangela Bundy APRN Active LISINOPRIL-HYDROCHLOROTHIAZIDE 10-12.5 MG TABS 1 every morning for high blood pressure LISINOPRIL-HYDROCHLOROTHIAZIDE 30998362077 Active Rosangela Bundy APRN Active DILTIAZEM HCL ER 240 MG [id number] 1 daily for high blood pressure DILTIAZEM HCL 85235244040 Active Rosangela Bundy APRN Active TERBINAFINE HCL 250 MG TABS 1 qDay TERBINAFINE HCL 13672377498 No Longer Active Daniel Wilson MD Active PROGESTERONE (150MCG) TESTOSTERONE (2.5MCG) BI-EST 2MG COMP 1 every evening PROGESTERONE (150MCG) TESTOSTERONE (2.5MCG) BI-EST 2MG COMP Active Daniel Wilson MD Active COMPOUNDED T3 (22.5MCG) AND T4 (95MCG) 1 every morning No Longer Active Daniel Wilson MD Active D3-50 64081 UNIT CAPS one capsule once a week CHOLECALCIFEROL 31852343955 Active Daniel Wilson MD Active METFORMIN HCL 500 MG TABS 1 tablet by mouth twice daily METFORMIN HCL 71663641150 Active Daniel Wilson MD Active LUMIGAN 0.03 % SOLN one drop in each eye at night BIMATOPROST 94216848652 No Longer Active Daniel Wilson MD Active TESSALON PERLES 100 MG CAP 1 to 2 tablets by mouth 3 times daily as needed for cough BENZONATATE 45479158142 No Longer Active Daniel Wilson MD Active PREDNISONE 20 MG TAB 1 po bid 2 days, then daily for 2 days. 2012 PREDNISONE 12330476007 No Longer Active Daniel Wilson MD Active ZITHROMAX Z-LIAM 250 MG TABS 2 today, then 1 daily for 4 days 2011 AZITHROMYCIN 07602620610 No Longer Active Daniel Wilson MD Active PREDNISONE 20 MG TAB 1 po bid 2 days, then daily for 2 days. 2013 /05/13 PREDNISONE 20 MG TAB 935031 PREDNISONE Inactive TESSALON PERLES 100 MG CAP 1 to 2 tablets by mouth 3 times daily as needed for cough TESSALON PERLES 100 MG CAP 540468 BENZONATATE Inactive PROAIR HFA 108 (90 BASE) [...] days 2011 ZITHROMAX Z-LIAM 250 MG TABS 6572595 AZITHROMYCIN Inactive TERBINAFINE HCL 250 MG TABS 1 qDay TERBINAFINE HCL 250 MG TABS 074407 TERBINAFINE HCL Inactive Vital Signs Date Name [...] ... - Chemistry cholesterol, serum 201 mg/dL 389-784 9527/05/08 HDL cholesterol, serum 82 mg/dL > OR=46 [...] % 11.0-15.0 platelet count 352 THOUSAND/UL 10*3/mm3 393-359 7708/05/08 mean platelet volume 8.1 fL 7.5-12.5 mean [...] 10 mg/L 0-19 Lab Report: VITAMIN D, 25-HYDROXY/45537 - Chemistry vitamin D 25-hydroxy, serum 111 ng/mL 30-100 Encounters Code Encounter Date Provider Facility CPT-48756 Level 4 Est. Patient 22:48:05 CDT Rosangela Bundy APRN [facility] CPT-27157 Level 4 Est. Patient 09:51:42 CDT Daniel Wilson MD [facility] CPT-73794 Level 4 Est. Patient 17:36:45 CDT Daniel Wilson MD [facility] CPT-07144 Level 4 Est. Patient 11:11:21 CDT Daniel Wilson MD [facility] CPT-99861 Level 4 Est. Patient 17:38:38 CDT Daniel Wilson MD [facility] CPT-44292 Level 3 Est. Patient 15:33:36 THEORETICAL PHYSICS TEACHER Radu Snow [facility] CPT-62185 Level 3 Est. Patient 17:50:06 CDT Daniel Wilson MD [facility] CPT-32511 Level 4 Est. Patient 18:11:39 THEORETICAL PHYSICS TEACHER Daniel Wilson MD [facility] Procedures Code Procedure Name Date Entry Date Standard Description CPT-000 Give Zostavax 12:48:22 CDT CPT-12717 First Vx - Ix admin via ID IM or jet injects without counseling by physician 13:17:45 CDT CPT-04796 Zostavax Subcutaneous Solution Reconstituted 73480 UNT/0.65ML 11/15 13:17:45 CDT CPT-48565 Venipuncture Draw Fee 10:33:11 CDT CPT-52411 Venipuncture Draw Fee 08:32:33 CDT CPT-LR Lesion Removal 12:04:40 CDT CPT-42229 Venipuncture Draw Fee 08:33:06 CDT CPT-42735 Venipuncture Draw Fee 08:17:56 CDT CPT-58211 Venipuncture Draw Fee 08:17:16 THEORETICAL PHYSICS TEACHER CPT-13469 Venipuncture Draw Fee 08:04:18 CDT CPT-06714 Venipuncture Draw Fee 08:39:03 THEORETICAL PHYSICS TEACHER
--- OUTSIDE RECORDS SUMMARY | 2018-08-07 18:20 | XMS REPORT | Clinical Summary ---
Author Author Admin, GUSTAVO Organization [facility] Address Unknown Phone Unavailable Allergies, Adverse [...] screening for osteoporosis V82.81 Active Diana Sy [facility] Screening for osteoporosis Neoplasm of uncertain behavior [...] TABS 1 daily for depression PAROXETINE HCL 19369572318 Active Daniel Wilson MD Active LISINOPRIL-HYDROCHLOROTHIAZIDE 10-12.5 MG TABS 1 every morning for high blood pressure LISINOPRIL-HYDROCHLOROTHIAZIDE 50200630094 Active Melina Mcarthur Active DILTIAZEM HCL ER 240 MG [id number] 1 daily for high blood pressure DILTIAZEM HCL 15261862605 Active Daniel Wilson MD Active TERBINAFINE HCL 250 MG TABS 1 qDay TERBINAFINE HCL 39796294054 No Longer Active Daniel Wilson MD Active PROGESTERONE (150MCG) TESTOSTERONE (2.5MCG) BI-EST 2MG COMP 1 every evening PROGESTERONE (150MCG) TESTOSTERONE (2.5MCG) BI-EST 2MG COMP Active Daniel Wilson MD Active COMPOUNDED T3 (22.5MCG) AND T4 (95MCG) 1 every morning Active Daniel Wilson MD Active D3-50 10319 UNIT CAPS one capsule once a week CHOLECALCIFEROL 87296917147 Active Daniel Wilson MD Active METFORMIN HCL 500 MG TABS 1 tablet by mouth twice daily METFORMIN HCL 47166294012 Active Daniel Wilson MD Active PROAIR HFA 108 (90 BASE) MCG/ACT AERS 2 puffs four times a day as needed 2012 ALBUTEROL SULFATE 71690257852 Active Daniel Wilson MD Active LUMIGAN 0.03 % SOLN one drop in each eye at night BIMATOPROST 88706361599 Active Daniel Wilson MD Active TESSALON PERLES 100 MG CAP 1 to 2 tablets by mouth 3 times daily as needed for cough BENZONATATE 53045522036 No Longer Active Daniel Wilson MD Active PREDNISONE 20 MG TAB 1 po bid 2 days, then daily for 2 days. 2012 PREDNISONE 10704129938 No Longer Active Daniel Wilson MD Active ATROVENT 0.06 % SOLUTION 1 to 2 sprays each nostril qid prn runny nose 03/05 IPRATROPIUM BROMIDE 54801851149 Active Daniel Wilson MD Active ZITHROMAX Z-LIAM 250 MG TABS 2 today, then 1 daily for 4 days 2011 AZITHROMYCIN 08399124781 No Longer Active Daniel Wilson MD Active PREDNISONE 20 MG TAB 1 po bid 2 days, then daily for 2 days. 2012 PREDNISONE 20 MG TAB 257354 PREDNISONE Inactive TESSALON PERLES 100 MG CAP 1 to 2 tablets by mouth 3 times daily as needed for cough TESSALON PERLES 100 MG CAP 323541 BENZONATATE Inactive ZITHROMAX Z-LIAM 250 MG TABS 2 today, then 1 daily for 4 days 2011 ZITHROMAX Z-LIAM 250 MG TABS 2930336 AZITHROMYCIN Inactive TERBINAFINE HCL 250 MG TABS 1 qDay TERBINAFINE HCL 250 MG TABS 697493 TERBINAFINE HCL Inactive Vital Signs Date Name [...] 65-110 Encounters Code Encounter Date Provider Facility CPT-00401 Level 4 Est. Patient 17:36:45 CDT Daniel Wilson MD [facility] CPT-35918 Level 4 Est. Patient 11:11:21 CDT Daniel Wilson MD [facility] CPT-87239 Level 4 Est. Patient 17:38:38 CDT Daniel Wilson MD [facility] CPT-31652 Level 3 Est. Patient 15:33:36 FACULTY DEAN Radu Snow DO [facility] CPT-11343 Level 3 Est. Patient 17:50:06 CDT Daniel Wilson MD [facility] CPT-65971 Level 4 Est. Patient 18:11:39 FACULTY DEAN Daniel Wilson MD [facility] Procedures Code Procedure Name Date Entry Date Standard Description CPT-LR Lesion Removal 12:04:40 CDT CPT-12075 Venipuncture Draw Fee 08:33:06 CDT CPT-20758 Venipuncture Draw Fee 08:17:56 CDT CPT-87853 Venipuncture Draw Fee 08:17:16 FACULTY DEAN CPT-98334 Venipuncture Draw Fee 08:04:18 CDT CPT-58464 Venipuncture Draw Fee 08:39:03 FACULTY DEAN
--- OUTSIDE RECORDS SUMMARY | 2018-08-07 18:21 | XMS REPORT | Clinical Summary ---
Author Author Admin, GUSTAVO Organization [facility] Address Unknown Phone [...] not elsewhere classified ENDOCRINE DISEASE 259.9 Active Radah Alvarenga Unspecified endocrine disorder URI 465.9 Resolved [...] osteoporosis V82.81 Active Diana Sy [facility] Screening for osteoporosis Neoplasm of uncertain behavior [...] Patient Instruction DILTIAZEM HCL ER 240 MG [id number] 1 daily for high blood pressure DILTIAZEM HCL 79868261628 Active Daniel Wilson MD Active TERBINAFINE HCL 250 MG TABS 1 qDay TERBINAFINE HCL 06820833976 No Longer Active Daniel Wilson MD Active PROGESTERONE (150MCG) TESTOSTERONE (2.5MCG) BI-EST 2MG COMP 1 every evening PROGESTERONE (150MCG) TESTOSTERONE (2.5MCG) BI-EST 2MG COMP Active Daniel Wilson MD Active COMPOUNDED T3 (22.5MCG) AND T4 (95MCG) 1 every morning Active Daniel Wilson MD Active D3-50 40849 UNIT CAPS one capsule once a week CHOLECALCIFEROL 79864558430 Active Daniel Wilson MD Active METFORMIN HCL 500 MG TABS 1 tablet by mouth twice daily METFORMIN HCL 30851310623 Active Daniel Wilson MD Active PROAIR HFA 108 (90 BASE) MCG/ACT AERS 2 puffs four times a day as needed 2012 ALBUTEROL SULFATE 82412440166 Active Daniel Wilson MD Active LUMIGAN 0.03 % SOLN one drop in each eye at night BIMATOPROST 94528925742 Active Daniel Wilson MD Active TESSALON PERLES 100 MG CAP 1 to 2 tablets by mouth 3 times daily as needed for cough BENZONATATE 40797906901 No Longer Active Daniel Wilson MD Active PREDNISONE 20 MG TAB 1 po bid 2 days, then daily for 2 days. 2012 PREDNISONE 77547754640 No Longer Active Daniel Wilson MD Active ATROVENT 0.06 % SOLUTION 1 to 2 sprays each nostril qid prn runny nose 03/05 IPRATROPIUM BROMIDE 07840568039 Active Daniel Wilson MD Active ZITHROMAX Z-LIAM 250 MG TABS 2 today, then 1 daily for 4 days 2011 AZITHROMYCIN 09005843093 No Longer Active Daniel Wilson MD Active PAROXETINE HCL 10 MG TABS 1 PO Q AM PAROXETINE HCL 35756847186 Active Daniel Wilson MD Active PREDNISONE 20 MG TAB 1 po bid 2 days, then daily for 2 days. 2012 PREDNISONE 20 MG TAB 540792 PREDNISONE Inactive TESSALON PERLES 100 MG CAP 1 to 2 tablets by mouth 3 times daily as needed for cough TESSALON PERLES 100 MG CAP 307827 BENZONATATE Inactive ZITHROMAX Z-LIAM 250 MG TABS 2 today, then 1 daily for 4 days 2011 ZITHROMAX Z-LIAM 250 MG TABS 4453487 AZITHROMYCIN Inactive TERBINAFINE HCL 250 MG TABS 1 qDay TERBINAFINE HCL 250 MG TABS 565833 TERBINAFINE HCL Inactive Vital Signs Date Name [...] 65-110 Encounters Code Encounter Date Provider Facility CPT-00006 Level 4 Est. Patient 11:11:21 CDT Daniel Wilson MD [facility] CPT-31185 Level 4 Est. Patient 17:38:38 CDT Daniel Wilson MD [facility] CPT-45853 Level 3 Est. Patient 15:33:36 INSURANCE CODER Radu Snow DO [facility] CPT-04680 Level 3 Est. Patient 17:50:06 CDT Daniel Wilson MD [facility] CPT-43400 Level 4 Est. Patient 18:11:39 INSURANCE CODER Daniel Wilson MD [facility] Procedures Code Procedure Name Date Entry Date Standard Description CPT-LR Lesion Removal 12:04:40 CDT CPT-18661 Venipuncture Draw Fee 08:33:06 CDT CPT-27419 Venipuncture Draw Fee 08:17:56 CDT CPT-98327 Venipuncture Draw Fee 08:17:16 INSURANCE CODER CPT-11130 Venipuncture Draw Fee 08:04:18 CDT CPT-23672 Venipuncture Draw Fee 08:39:03 INSURANCE CODER
--- OUTSIDE RECORDS SUMMARY | 2018-08-07 18:21 | XMS REPORT | Clinical Summary ---
Author Author Admin, GUSTAVO Organization [facility] Address Unknown Phone Unavailable Allergies, Adverse Reactions, [...] qid prn runny nose 03/05 IPRATROPIUM BROMIDE 67263798467 No Longer Active Daniel Wilson MD Active PROAIR HFA 108 (90 BASE) MCG/ACT AERS 2 puffs four times a day as needed 2012 ALBUTEROL SULFATE 41880131436 No Longer Active Daniel Wilson MD Active PAROXETINE HCL 20 MG TABS 1 daily for depression PAROXETINE HCL 56816960025 Active Daniel Wilson MD Active LISINOPRIL-HYDROCHLOROTHIAZIDE 10-12.5 MG TABS 1 every morning for high blood pressure LISINOPRIL-HYDROCHLOROTHIAZIDE 25603848610 Active Daniel Wilson MD Active DILTIAZEM HCL ER 240 MG [id number] 1 daily for high blood pressure DILTIAZEM HCL 31303613283 Active Daniel Wilson MD Active TERBINAFINE HCL 250 MG TABS 1 qDay TERBINAFINE HCL 57985480648 No Longer Active Daniel Wilson MD Active PROGESTERONE (150MCG) TESTOSTERONE (2.5MCG) BI-EST 2MG COMP 1 every evening PROGESTERONE (150MCG) TESTOSTERONE (2.5MCG) BI-EST 2MG COMP Active Daniel Wilson MD Active COMPOUNDED T3 (22.5MCG) AND T4 (95MCG) 1 every morning Active Daniel Wilson MD Active D3-50 49126 UNIT CAPS one capsule once a week CHOLECALCIFEROL 74093086131 Active Daniel Wilson MD Active METFORMIN HCL 500 MG TABS 1 tablet by mouth twice daily METFORMIN HCL 73805435627 Active Daniel Wilson MD Active LUMIGAN 0.03 % SOLN one drop in each eye at night BIMATOPROST 95435743896 Active Daniel Wilson MD Active TESSALON PERLES 100 MG CAP 1 to 2 tablets by mouth 3 times daily as needed for cough BENZONATATE 99353770091 No Longer Active Daniel Wilson MD Active PREDNISONE 20 MG TAB 1 po bid 2 days, then daily for 2 days. 2012 PREDNISONE 28532756795 No Longer Active Daniel Wilson MD Active ZITHROMAX Z-LIAM 250 MG TABS 2 today, then 1 daily for 4 days 2011 AZITHROMYCIN 81381235750 No Longer Active Daniel Wilson MD Active PREDNISONE 20 MG TAB 1 po bid 2 days, then daily for 2 days. 2012 PREDNISONE 20 MG TAB 500706 PREDNISONE Inactive TESSALON PERLES 100 MG CAP 1 to 2 tablets by mouth 3 times daily as needed for cough TESSALON PERLES 100 MG CAP 237661 BENZONATATE Inactive PROAIR HFA 108 (90 BASE) MCG/ACT AERS 2 puffs four times a day as needed 2012 PROAIR HFA 108 (90 BASE) MCG/ACT AERS ALBUTEROL SULFATE Inactive ATROVENT 0.06 % SOLUTION 1 to 2 sprays each nostril qid prn runny nose 03/05 ATROVENT 0.06 % SOLUTION 638185 IPRATROPIUM BROMIDE Inactive ZITHROMAX Z-LIAM 250 MG TABS 2 today, then 1 daily for 4 days 2011 ZITHROMAX Z-LIAM 250 MG TABS 0057412 AZITHROMYCIN Inactive TERBINAFINE HCL 250 MG TABS 1 qDay TERBINAFINE HCL 250 MG TABS 374687 TERBINAFINE HCL Inactive Vital Signs Date Name [...] ... - Chemistry sodium, serum 139 mmol/L 564-267 3180/04/27 carbon dioxide, venous blood 30.7 mmol/L 21.0-32.0 [...] 22 ng/dL 2-45 Lab Report: VITAMIN D, 25-HYDROXY/07336 - Chemistry vitamin D 25-hydroxy, serum 47 ng/mL 30-100 Encounters Code Encounter Date Provider Facility CPT-58057 Level 4 Est. Patient 09:51:42 CDT Daniel Wilson MD [facility] CPT-15237 Level 4 Est. Patient 17:36:45 CDT Daniel Wilson MD [facility] CPT-96495 Level 4 Est. Patient 11:11:21 CDT Daniel Wilson MD [facility] CPT-16355 Level 4 Est. Patient 17:38:38 CDT Daniel Wilson MD [facility] CPT-09185 Level 3 Est. 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 Patient 17:50:06 CDT Daniel Wilson MD [facility] CPT-82586 Level 4 Est. Patient 18:11:39 HANDHOLE MACHINE OPERATOR Daniel Wilson MD [facility] Procedures Code Procedure Name Date Entry Date Standard Description CPT-32002 Venipuncture Draw Fee 08:32:33 CDT CPT-LR Lesion Removal 12:04:40 CDT CPT-90882 Venipuncture Draw Fee 08:33:06 CDT CPT-74499 Venipuncture Draw Fee 08:17:56 CDT CPT-35375 Venipuncture Draw Fee 08:17:16 HANDHOLE MACHINE OPERATOR CPT-00790 Venipuncture Draw Fee 08:04:18 CDT CPT-82031 Venipuncture Draw Fee 08:39:03 HANDHOLE MACHINE OPERATOR
--- OUTSIDE RECORDS SUMMARY | 2018-08-07 18:21 | XMS REPORT | Clinical Summary ---
Author Author Admin, GUSTAVO Organization [facility] Address Unknown Phone Unavailable Allergies, [...] qid prn runny nose 03/05 IPRATROPIUM BROMIDE 83418168001 No Longer Active Daniel Wilson MD Active PROAIR HFA 108 (90 BASE) MCG/ACT AERS 2 puffs four times a day as needed 2012 ALBUTEROL SULFATE 94358222425 No Longer Active Daniel Wilson MD Active PAROXETINE HCL 20 MG TABS 1 daily for depression PAROXETINE HCL 71133464749 Active Daniel Wilson MD Active LISINOPRIL-HYDROCHLOROTHIAZIDE 10-12.5 MG TABS 1 every morning for high blood pressure LISINOPRIL-HYDROCHLOROTHIAZIDE 46043572619 Active Daniel Wilson MD Active DILTIAZEM HCL ER 240 MG [id number] 1 daily for high blood pressure DILTIAZEM HCL 89821642503 Active Daniel Wilson MD Active TERBINAFINE HCL 250 MG TABS 1 qDay TERBINAFINE HCL 44015886714 No Longer Active Daniel Wilson MD Active PROGESTERONE (150MCG) TESTOSTERONE (2.5MCG) BI-EST 2MG COMP 1 every evening PROGESTERONE (150MCG) TESTOSTERONE (2.5MCG) BI-EST 2MG COMP Active Daniel Wilson MD Active COMPOUNDED T3 (22.5MCG) AND T4 (95MCG) 1 every morning Active Daniel Wilson MD Active D3-50 97650 UNIT CAPS one capsule once a week CHOLECALCIFEROL 51999232815 Active Daniel Wilson MD Active METFORMIN HCL 500 MG TABS 1 tablet by mouth twice daily METFORMIN HCL 66061033624 Active Daniel Wilson MD Active LUMIGAN 0.03 % SOLN one drop in each eye at night BIMATOPROST 65834532424 Active Daniel Wilson MD Active TESSALON PERLES 100 MG CAP 1 to 2 tablets by mouth 3 times daily as needed for cough BENZONATATE 96845361973 No Longer Active Daniel Wilson MD Active PREDNISONE 20 MG TAB 1 po bid 2 days, then daily for 2 days. 2012 PREDNISONE 21243535458 No Longer Active Daniel Wilson MD Active ZITHROMAX Z-LIAM 250 MG TABS 2 today, then 1 daily for 4 days 2011 AZITHROMYCIN 23702027510 No Longer Active Daniel Wilson MD Active PREDNISONE 20 MG TAB 1 po bid 2 days, then daily for 2 days. 2012 PREDNISONE 20 MG TAB 731429 PREDNISONE Inactive TESSALON PERLES 100 MG CAP 1 to 2 tablets by mouth 3 times daily as needed for cough TESSALON PERLES 100 MG CAP 696195 BENZONATATE Inactive PROAIR HFA 108 (90 BASE) [...] days 2011 ZITHROMAX Z-LIAM 250 MG TABS 2626597 AZITHROMYCIN Inactive TERBINAFINE HCL 250 MG TABS 1 qDay TERBINAFINE HCL 250 MG TABS 652314 TERBINAFINE HCL Inactive Diagnostic Results Date Name Value Unit Range Description Lab Report: VITAMIN D, 25-HYDROXY/50642 - Chemistry vitamin D 25-hydroxy, serum 111 ng/mL 30-100 Encounters Code Encounter Date Provider Facility CPT-96568 Level 4 Est. Patient 09:51:42 CDT Daniel Wilson MD [facility] CPT-83250 Level 4 Est. Patient 17:36:45 CDT Daniel Wilson MD [facility] CPT-21204 Level 4 Est. Patient 11:11:21 CDT Daniel Wilson MD [facility] CPT-71950 Level 4 Est. Patient 17:38:38 CDT Daniel Wilson MD [facility] CPT-30933 Level 3 Est. 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 Patient 17:50:06 CDT Daniel Wilson MD [facility] CPT-31976 Level 4 Est. Patient 18:11:39 REFRIGERATION INSTALLER Daniel Wilson MD [facility] Procedures Code Procedure Name Date Entry Date Standard Description CPT-17804 Venipuncture Draw Fee 10:33:11 CDT CPT-64589 Venipuncture Draw Fee 08:32:33 CDT CPT-LR Lesion Removal 12:04:40 CDT CPT-33979 Venipuncture Draw Fee 08:33:06 CDT CPT-31773 Venipuncture Draw Fee 08:17:56 CDT CPT-29963 Venipuncture Draw Fee 08:17:16 REFRIGERATION INSTALLER CPT-61443 Venipuncture Draw Fee 08:04:18 CDT CPT-21411 Venipuncture Draw Fee 08:39:03 REFRIGERATION INSTALLER
--- OUTSIDE RECORDS SUMMARY | 2018-08-07 18:21 | XMS REPORT | Clinical Summary ---
Author Author Admin, E Organization [facility] Address Unknown Phone Unavailable Allergies, Adverse [...] qid prn runny nose 03/05 IPRATROPIUM BROMIDE 93128549227 No Longer Active Daniel Wilson MD Active PROAIR HFA 108 (90 BASE) MCG/ACT AERS 2 puffs four times a day as needed 2012 ALBUTEROL SULFATE 92030418583 No Longer Active Daniel Wilson MD Active PAROXETINE HCL 20 MG TABS 1 daily for depression PAROXETINE HCL 10004609740 Active Daniel Wilson MD Active LISINOPRIL-HYDROCHLOROTHIAZIDE 10-12.5 MG TABS 1 every morning for high blood pressure LISINOPRIL-HYDROCHLOROTHIAZIDE 82723075382 Active Daniel Wilson MD Active DILTIAZEM HCL ER 240 MG [id number] 1 daily for high blood pressure DILTIAZEM HCL 70638132857 Active Daniel Wilson MD Active TERBINAFINE HCL 250 MG TABS 1 qDay TERBINAFINE HCL 83449696295 No Longer Active Daniel Wilson MD Active PROGESTERONE (150MCG) TESTOSTERONE (2.5MCG) BI-EST 2MG COMP 1 every evening PROGESTERONE (150MCG) TESTOSTERONE (2.5MCG) BI-EST 2MG COMP Active Daniel Wilson MD Active COMPOUNDED T3 (22.5MCG) AND T4 (95MCG) 1 every morning Active Daniel Wilson MD Active D3-50 78853 UNIT CAPS one capsule once a week CHOLECALCIFEROL 45662380971 Active Daniel Wilson MD Active METFORMIN HCL 500 MG TABS 1 tablet by mouth twice daily METFORMIN HCL 84132374333 Active Daniel Wilson MD Active LUMIGAN 0.03 % SOLN one drop in each eye at night BIMATOPROST 38546874722 Active Daniel Wilson MD Active TESSALON PERLES 100 MG CAP 1 to 2 tablets by mouth 3 times daily as needed for cough BENZONATATE 80251197449 No Longer Active Daniel Wilson MD Active PREDNISONE 20 MG TAB 1 po bid 2 days, then daily for 2 days. 2012 PREDNISONE 61019961232 No Longer Active Daniel Wilson MD Active ZITHROMAX Z-LIAM 250 MG TABS 2 today, then 1 daily for 4 days 2011 AZITHROMYCIN 51966911607 No Longer Active Daniel Wilson MD Active PREDNISONE 20 MG TAB 1 po bid 2 days, then daily for 2 days. 2012 PREDNISONE 20 MG TAB 975875 PREDNISONE Inactive TESSALON PERLES 100 MG CAP 1 to 2 tablets by mouth 3 times daily as needed for cough TESSALON PERLES 100 MG CAP 857728 BENZONATATE Inactive PROAIR HFA 108 (90 BASE) MCG/ACT AERS 2 puffs four times a day as needed 2012 PROAIR HFA 108 (90 BASE) MCG/ACT AERS ALBUTEROL SULFATE Inactive ATROVENT 0.06 % SOLUTION 1 to 2 sprays each nostril qid prn runny nose 03/05 ATROVENT 0.06 % SOLUTION 985690 IPRATROPIUM BROMIDE Inactive ZITHROMAX Z-LIAM 250 MG TABS 2 today, then 1 daily for 4 days 2011 ZITHROMAX Z-LIAM 250 MG TABS 4474481 AZITHROMYCIN Inactive TERBINAFINE HCL 250 MG TABS 1 qDay TERBINAFINE HCL 250 MG TABS 910898 TERBINAFINE HCL Inactive Vital Signs Date Name [...] 65-110 Encounters Code Encounter Date Provider Facility CPT-90444 Level 4 Est. Patient 09:51:42 CDT Daniel Wilson MD [facility] CPT-97220 Level 4 Est. Patient 17:36:45 CDT Daniel Wilson MD [facility] CPT-93729 Level 4 Est. Patient 11:11:21 CDT Daniel Wilson MD [facility] CPT-81217 Level 4 Est. Patient 17:38:38 CDT Daniel Wilson MD [facility] CPT-66493 Level 3 Est. 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 Patient 17:50:06 CDT Daniel Wilson MD [facility] CPT-80745 Level 4 Est. Patient 18:11:39 TREATMENT COUNSELOR Daniel Wilson MD [facility] Procedures Code Procedure Name Date Entry Date Standard Description CPT-06307 Venipuncture Draw Fee 08:32:33 CDT CPT-LR Lesion Removal 12:04:40 CDT CPT-79936 Venipuncture Draw Fee 08:33:06 CDT CPT-16431 Venipuncture Draw Fee 08:17:56 CDT CPT-27264 Venipuncture Draw Fee 08:17:16 TREATMENT COUNSELOR CPT-55014 Venipuncture Draw Fee 08:04:18 CDT CPT-35194 Venipuncture Draw Fee 08:39:03 TREATMENT COUNSELOR
[2018-08-07] MEDS ORDERED: PARO20TA5 PO (18:22)
[2018-08-07] MEDS ORDERED: LISI1TAB6 PO (18:22)
[2018-08-07] MEDS ORDERED: DILT240C53 PO (18:22)
[2018-08-07] MEDS ORDERED: LEVO750T39 PO (18:22)
[2018-08-07] MEDS ORDERED: ERGO50006 PO (18:22)
[2018-08-07] MEDS ORDERED: METF500T8 PO (18:22)
--- OUTSIDE RECORDS SUMMARY | 2018-08-07 18:22 | XMS REPORT | Clinical Summary ---
Author Author Admin, GUSTAVO Organization [facility] Address Unknown Phone Unavailable Allergies, [...] Benign essential hypertension OBESITY 278.00 Active Daniel iWlson MD Obesity , unspecified Special screening for [...] 146.25 MG ORAL TABS once daily THYROID 09242454600 Active Rosangela Bundy APRN Active TRAVATAN Z 0.004 % OPHTH SOLN 1 drop in each eye nightly TRAVOPROST 12800842912 Active Rosangela Bundy APRN Active ATROVENT 0.06 % SOLUTION 1 to 2 sprays each nostril qid prn runny nose 03/05 IPRATROPIUM BROMIDE 23540238702 No Longer Active Daniel Wilson MD Active PROAIR HFA 108 (90 BASE) MCG/ACT AERS 2 puffs four times a day as needed 2012 ALBUTEROL SULFATE 24892389035 No Longer Active Daniel Wilson MD Active PAROXETINE HCL 20 MG TABS 1 daily for depression PAROXETINE HCL 62201973093 Active Rosangela Bundy APRN Active LISINOPRIL-HYDROCHLOROTHIAZIDE 10-12.5 MG TABS 1 every morning for high blood pressure LISINOPRIL-HYDROCHLOROTHIAZIDE 43620236402 Active Rosangela Bundy APRN Active DILTIAZEM HCL ER 240 MG [id number] 1 daily for high blood pressure DILTIAZEM HCL 38588948323 Active Rosangela Bundy APRN Active TERBINAFINE HCL 250 MG TABS 1 qDay TERBINAFINE HCL 58220029879 No Longer Active Daniel Wilson MD Active PROGESTERONE (150MCG) TESTOSTERONE (2.5MCG) BI-EST 2MG COMP 1 every evening PROGESTERONE (150MCG) TESTOSTERONE (2.5MCG) BI-EST 2MG COMP Active Daniel Wilson MD Active COMPOUNDED T3 (22.5MCG) AND T4 (95MCG) 1 every morning No Longer Active Daniel Wilson MD Active D3-50 89355 UNIT CAPS one capsule once a week CHOLECALCIFEROL 93133254220 Active Daniel Wilson MD Active METFORMIN HCL 500 MG TABS 1 tablet by mouth twice daily METFORMIN HCL 11298718196 Active Daniel Wilson MD Active LUMIGAN 0.03 % SOLN one drop in each eye at night BIMATOPROST 17573661937 No Longer Active Daniel Wilson MD Active TESSALON PERLES 100 MG CAP 1 to 2 tablets by mouth 3 times daily as needed for cough BENZONATATE 70859333014 No Longer Active Daniel Wilson MD Active PREDNISONE 20 MG TAB 1 po bid 2 days, then daily for 2 days. 2012 PREDNISONE 40717322829 No Longer Active Daniel Wilson MD Active ZITHROMAX Z-LIAM 250 MG TABS 2 today, then 1 daily for 4 days 2011 AZITHROMYCIN 08371122160 No Longer Active Daniel Wilson MD Active PREDNISONE 20 MG TAB 1 po bid 2 days, then daily for 2 days. 2012 PREDNISONE 20 MG TAB 808670 PREDNISONE Inactive TESSALON PERLES 100 MG CAP 1 to 2 tablets by mouth 3 times daily as needed for cough TESSALON PERLES 100 MG CAP 331515 BENZONATATE Inactive PROAIR HFA 108 (90 BASE) [...] days 2011 ZITHROMAX Z-LIAM 250 MG TABS 1522205 AZITHROMYCIN Inactive TERBINAFINE HCL 250 MG TABS 1 qDay TERBINAFINE HCL 250 MG TABS 318192 TERBINAFINE HCL Inactive Diagnostic Results Date Name Value Unit Range Description Lab Report: CBC (INCLUDES DIFF/PLT)/6399, COMPREHENSIVE METABOLIC PANEL, ... - Chemistry cholesterol, serum 201 mg/dL 271-261 4999/05/08 HDL cholesterol, serum 82 mg/dL > OR=46 [...] % 11.0-15.0 platelet count 352 THOUSAND/UL 10*3/mm3 834-754 2127/05/08 mean platelet volume 8.1 fL 7.5-12.5 Lab Report: MICROALB/CREAT W/RATIO - Chemistry albumin/creatinine ratio, urine <30 mg/g Normal mg/g mg/g{creat} 0-29 Lab Report: MICROALB/CREAT W/RATIO - Lab microalbumin, urine 10 mg/L 0-19 Lab Report: VITAMIN D, 25-HYDROXY/58930 - Chemistry vitamin D 25-hydroxy, serum 111 ng/mL 30-100 Encounters Code Encounter Date Provider Facility CPT-64934 Level 4 Est. Patient 09:51:42 CDT Daniel Wilson MD [facility] CPT-28711 Level 4 Est. Patient 17:36:45 CDT Daniel Wilson MD [facility] CPT-36095 Level 4 Est. Patient 11:11:21 CDT Daniel Wilson MD [facility] CPT-66194 Level 4 Est. Patient 17:38:38 CDT Daniel Wilson MD [facility] CPT-87362 Level 3 Est. 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 Patient 17:50:06 CDT Daniel Wilson MD [facility] CPT-98978 Level 4 Est. Patient 18:11:39 REFRIGERATION HOUSEMAN Daniel Wilson MD [facility] Procedures Code Procedure Name Date Entry Date Standard Description CPT-53307 First Vx - Ix admin via ID IM or jet injects without counseling by physician 13:17:45 CDT CPT-35301 Zostavax Subcutaneous Solution Reconstituted 51772 UNT/0.65ML 11/15 13:17:45 CDT CPT-31108 Venipuncture Draw Fee 10:33:11 CDT CPT-76647 Venipuncture Draw Fee 08:32:33 CDT CPT-LR Lesion Removal 12:04:40 CDT CPT-01145 Venipuncture Draw Fee 08:33:06 CDT CPT-77009 Venipuncture Draw Fee 08:17:56 CDT CPT-30475 Venipuncture Draw Fee 08:17:16 REFRIGERATION HOUSEMAN CPT-97421 Venipuncture Draw Fee 08:04:18 CDT CPT-00833 Venipuncture Draw Fee 08:39:03 REFRIGERATION HOUSEMAN
--- OUTSIDE RECORDS SUMMARY | 2018-08-07 18:22 | XMS REPORT | Clinical Summary ---
Author Author Admin, GUSTAVO Organization [facility] Address Unknown Phone Unavailable Allergies, Adverse Reactions, [...] osteoporosis V82.81 Active Diana Sy [facility] Screening for osteoporosis Neoplasm of [...] Patient Instruction DILTIAZEM HCL ER 240 MG [id number] 1 daily for high blood pressure DILTIAZEM HCL 99535956255 Active Daniel Wilson MD Active TERBINAFINE HCL 250 MG TABS 1 qDay TERBINAFINE HCL 96830676903 No Longer Active Daniel Wilson MD Active PROGESTERONE (150MCG) TESTOSTERONE (2.5MCG) BI-EST 2MG COMP 1 every evening PROGESTERONE (150MCG) TESTOSTERONE (2.5MCG) BI-EST 2MG COMP Active aDniel Wilson MD Active COMPOUNDED T3 (22.5MCG) AND T4 (95MCG) 1 every morning Active Daniel Wilson MD Active D3-50 28021 UNIT CAPS one capsule once a week CHOLECALCIFEROL 60211706711 Active Daniel Wilson MD Active METFORMIN HCL 500 MG TABS 1 tablet by mouth twice daily METFORMIN HCL 92110320136 Active Daniel Wilson MD Active PROAIR HFA 108 (90 BASE) MCG/ACT AERS 2 puffs four times a day as needed 2012 ALBUTEROL SULFATE 06788699420 Active Daniel Wilson MD Active LUMIGAN 0.03 % SOLN one drop in each eye at night BIMATOPROST 27582322102 Active Daniel Wilson MD Active TESSALON PERLES 100 MG CAP 1 to 2 tablets by mouth 3 times daily as needed for cough BENZONATATE 49655522661 No Longer Active Daniel Wilson MD Active PREDNISONE 20 MG TAB 1 po bid 2 days, then daily for 2 days. 2012 PREDNISONE 54857264525 No Longer Active Daniel Wilson MD Active ATROVENT 0.06 % SOLUTION 1 to 2 sprays each nostril qid prn runny nose 03/05 IPRATROPIUM BROMIDE 49133666855 Active Daniel Wilson MD Active ZITHROMAX Z-LIAM 250 MG TABS 2 today, then 1 daily for 4 days 2011 AZITHROMYCIN 18692943399 No Longer Active Daniel Wilson MD Active PAROXETINE HCL 10 MG TABS 1 PO Q AM PAROXETINE HCL 48534702742 Active Daniel Wilson MD Active PREDNISONE 20 MG TAB 1 po bid 2 days, then daily for 2 days. 2012 PREDNISONE 20 MG TAB 848864 PREDNISONE Inactive TESSALON PERLES 100 MG CAP 1 to 2 tablets by mouth 3 times daily as needed for cough TESSALON PERLES 100 MG CAP 749483 BENZONATATE Inactive ZITHROMAX Z-LIAM 250 MG TABS 2 today, then 1 daily for 4 days 2011 ZITHROMAX Z-LIAM 250 MG TABS 0047948 AZITHROMYCIN Inactive TERBINAFINE HCL 250 MG TABS 1 qDay TERBINAFINE HCL 250 MG TABS 628562 TERBINAFINE HCL Inactive Vital Signs Date Name [...] total hemoglobin 5.5 % 4.3-6.0 Lab Report: Thyroid Stimulating Hormone (L), Free Thyroxine (L), Glucose - Chemistry TSH 0.74 m[iU]/mL 0.36-3.74 thyroxine, serum, free 0.85 ng/dL 0.76-1.46 blood glucose 86 mg/dL 65-110 Encounters Code Encounter Date Provider Facility CPT-42461 Level 4 Est. Patient 11:11:21 CDT Daniel Wilson MD [facility] CPT-24799 Level 4 Est. Patient 17:38:38 CDT Dnaiel Wilson MD [facility] CPT-29572 Level 3 Est. Patient 15:33:36 SCRAP COLLECTOR Radu Snow DO [facility] CPT-67817 Level 3 Est. Patient 17:50:06 CDT Daniel Wilson MD [facility] CPT-22599 Level 4 Est. Patient 18:11:39 SCRAP COLLECTOR Daniel Wilson MD [facility] Procedures Code Procedure Name Date Entry Date Standard Description CPT-LR Lesion Removal 12:04:40 CDT CPT-95981 Venipuncture Draw Fee 08:33:06 CDT CPT-12238 Venipuncture Draw Fee 08:17:56 CDT CPT-29258 Venipuncture Draw Fee 08:17:16 SCRAP COLLECTOR CPT-69473 Venipuncture Draw Fee 08:04:18 CDT CPT-20565 Venipuncture Draw Fee 08:39:03 SCRAP COLLECTOR
--- OUTSIDE RECORDS SUMMARY | 2018-08-07 18:22 | XMS REPORT | Clinical Summary ---
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 Inactive Rosangela Bundy APRN LARYNGITIS, ACUTE ICD-464.00 Inactive Daniel Wilson MD [...] MD URI ICD-465.9 Inactive Daniel Wilson MD Medication List Medication Instructions Start Date Stop Date Generic Name NDC Status Provider Patient Instruction NATURE-THROID 146.25 MG ORAL TABS once daily THYROID 52625000031 Active Rosangela Bundy APRN Active TRAVATAN Z 0.004 % OPHTH SOLN 1 drop in each eye nightly TRAVOPROST 82195428347 Active Rosangela Bundy APRN Active ATROVENT 0.06 % SOLUTION 1 to 2 sprays each nostril qid prn runny nose 03/05 IPRATROPIUM BROMIDE 66583252274 No Longer Active Daniel Wilson MD Active PROAIR HFA 108 (90 BASE) MCG/ACT AERS 2 puffs four times a day as needed 2012 ALBUTEROL SULFATE 21835730962 No Longer Active Daniel Wilson MD Active PAROXETINE HCL 20 MG TABS 1 daily for depression PAROXETINE HCL 31613661937 Active Rosangela Bundy APRN Active LISINOPRIL-HYDROCHLOROTHIAZIDE 10-12.5 MG TABS 1 every morning for high blood pressure LISINOPRIL-HYDROCHLOROTHIAZIDE 43469773047 Active Rosangela Bundy APRN Active DILTIAZEM HCL ER 240 MG [id number] 1 daily for high blood pressure DILTIAZEM HCL 42484591494 Active Rosangela Bundy APRN Active TERBINAFINE HCL 250 MG TABS 1 qDay TERBINAFINE HCL 54031191199 No Longer Active Daniel Wilson MD Active PROGESTERONE (150MCG) TESTOSTERONE (2.5MCG) BI-EST 2MG COMP 1 every evening PROGESTERONE (150MCG) TESTOSTERONE (2.5MCG) BI-EST 2MG COMP Active Daniel Wilson MD Active COMPOUNDED T3 (22.5MCG) AND T4 (95MCG) 1 every morning No Longer Active Daniel Wilson MD Active D3-50 94172 UNIT CAPS one capsule once a week CHOLECALCIFEROL 07874127235 Active Daniel Wilson MD Active METFORMIN HCL 500 MG TABS 1 tablet by mouth twice daily METFORMIN HCL 59134801882 Active Daniel Wilson MD Active LUMIGAN 0.03 % SOLN one drop in each eye at night BIMATOPROST 82908564222 No Longer Active Daniel Wilson MD Active TESSALON PERLES 100 MG CAP 1 to 2 tablets by mouth 3 times daily as needed for cough BENZONATATE 71644675011 No Longer Active Daniel Wilson MD Active PREDNISONE 20 MG TAB 1 po bid 2 days, then daily for 2 days. 2012 PREDNISONE 47681113516 No Longer Active Daniel Wilson MD Active ZITHROMAX Z-LIAM 250 MG TABS 2 today, then 1 daily for 4 days 2011 AZITHROMYCIN 03078651148 No Longer Active Daniel Wilson MD Active PREDNISONE 20 MG TAB 1 po bid 2 days, then daily for 2 days. 2013 /05/13 PREDNISONE 20 MG TAB 704794 PREDNISONE Inactive TESSALON PERLES 100 MG CAP 1 to 2 tablets by mouth 3 times daily as needed for cough TESSALON PERLES 100 MG CAP 600207 BENZONATATE Inactive PROAIR HFA 108 (90 BASE) [...] days 2011 ZITHROMAX Z-LIAM 250 MG TABS 4357694 AZITHROMYCIN Inactive TERBINAFINE HCL 250 MG TABS 1 qDay TERBINAFINE HCL 250 MG TABS 686123 TERBINAFINE HCL Inactive Vital Signs Date Name [...] ... - Chemistry cholesterol, serum 201 mg/dL 583-235 0672/05/08 HDL cholesterol, serum 82 mg/dL > OR=46 [...] % 11.0-15.0 platelet count 352 THOUSAND/UL 10*3/mm3 176-706 6528/05/08 mean platelet volume 8.1 fL 7.5-12.5 Lab Report: MICROALB/CREAT W/RATIO - Chemistry albumin/creatinine ratio, urine <30 mg/g Normal mg/g mg/g{creat} 0-29 Lab Report: MICROALB/CREAT W/RATIO - Lab microalbumin, urine 10 mg/L 0-19 Lab Report: VITAMIN D, 25-HYDROXY/12770 - Chemistry vitamin D 25-hydroxy, serum 111 ng/mL 30-100 Encounters Code Encounter Date Provider Facility CPT-78772 Level 4 Est. Patient 22:48:05 CDT Rosangela Bundy APRN [facility] CPT-69308 Level 4 Est. Patient 09:51:42 CDT Daniel Wilson MD [facility] CPT-37343 Level 4 Est. Patient 17:36:45 CDT Daniel Wilson MD [facility] CPT-66910 Level 4 Est. Patient 11:11:21 CDT Daniel Wilson MD [facility] CPT-13947 Level 4 Est. Patient 17:38:38 CDT Daniel Wilson MD [facility] CPT-29323 Level 3 Est. Patient 15:33:36 HOSPITALITY HOST Radu Snow DO [facility] CPT-91903 Level 3 Est. Patient 17:50:06 CDT Daniel Wilson MD [facility] CPT-38229 Level 4 Est. Patient 18:11:39 HOSPITALITY HOST Daniel Wilson MD [facility] Procedures Code Procedure Name Date Entry Date Standard Description CPT-45817 First Vx - Ix admin via ID IM or jet injects without counseling by physician 13:17:45 CDT CPT-10840 Zostavax Subcutaneous Solution Reconstituted 52884 UNT/0.65ML 11/15 13:17:45 CDT CPT-75247 Venipuncture Draw Fee 10:33:11 CDT CPT-29545 Venipuncture Draw Fee 08:32:33 CDT CPT-LR Lesion Removal 12:04:40 CDT CPT-29979 Venipuncture Draw Fee 08:33:06 CDT CPT-32799 Venipuncture Draw Fee 08:17:56 CDT CPT-09752 Venipuncture Draw Fee 08:17:16 HOSPITALITY HOST CPT-47913 Venipuncture Draw Fee 08:04:18 CDT CPT-09002 Venipuncture Draw Fee 08:39:03 HOSPITALITY HOST
--- OUTSIDE RECORDS SUMMARY | 2018-08-07 18:23 | XMS REPORT | Clinical Summary ---
Author Author Admin, GUSTAVO Organization [facility] Address Unknown Phone Unavailable Allergies, Adverse [...] osteoporosis V82.81 Active Diana Sy [facility] Screening for osteoporosis Neoplasm of uncertain behavior [...] TABS 1 daily for depression PAROXETINE HCL 11336948138 Active Daniel Wilson MD Active LISINOPRIL-HYDROCHLOROTHIAZIDE 10-12.5 MG TABS 1 every morning for high blood pressure LISINOPRIL-HYDROCHLOROTHIAZIDE 67540686892 Active Melina Mcarthur Active DILTIAZEM HCL ER 240 MG [id number] 1 daily for high blood pressure DILTIAZEM HCL 98602310974 Active Daniel Wilson MD Active TERBINAFINE HCL 250 MG TABS 1 qDay TERBINAFINE HCL 58174702532 No Longer Active Daniel Wilson MD Active PROGESTERONE (150MCG) TESTOSTERONE (2.5MCG) BI-EST 2MG COMP 1 every evening PROGESTERONE (150MCG) TESTOSTERONE (2.5MCG) BI-EST 2MG COMP Active Daniel Wilson MD Active COMPOUNDED T3 (22.5MCG) AND T4 (95MCG) 1 every morning Active Daniel Wilson MD Active D3-50 17211 UNIT CAPS one capsule once a week CHOLECALCIFEROL 80052962187 Active Danile Wilson MD Active METFORMIN HCL 500 MG TABS 1 tablet by mouth twice daily METFORMIN HCL 87887234567 Active Daniel Wilson MD Active PROAIR HFA 108 (90 BASE) MCG/ACT AERS 2 puffs four times a day as needed 2012 ALBUTEROL SULFATE 20813957005 Active Daniel Wilson MD Active LUMIGAN 0.03 % SOLN one drop in each eye at night BIMATOPROST 48446288413 Active Daniel Wilson MD Active TESSALON PERLES 100 MG CAP 1 to 2 tablets by mouth 3 times daily as needed for cough BENZONATATE 32547021636 No Longer Active Daniel Wilson MD Active PREDNISONE 20 MG TAB 1 po bid 2 days, then daily for 2 days. 2012 PREDNISONE 70881559835 No Longer Active Daniel Wilson MD Active ATROVENT 0.06 % SOLUTION 1 to 2 sprays each nostril qid prn runny nose 03/05 IPRATROPIUM BROMIDE 29981020647 Active Daniel Wilson MD Active ZITHROMAX Z-LIAM 250 MG TABS 2 today, then 1 daily for 4 days 2011 AZITHROMYCIN 22799834797 No Longer Active Daniel Wilson MD Active PREDNISONE 20 MG TAB 1 po bid 2 days, then daily for 2 days. 2012 PREDNISONE 20 MG TAB 478321 PREDNISONE Inactive TESSALON PERLES 100 MG CAP 1 to 2 tablets by mouth 3 times daily as needed for cough TESSALON PERLES 100 MG CAP 948645 BENZONATATE Inactive ZITHROMAX Z-LIAM 250 MG TABS 2 today, then 1 daily for 4 days 2011 ZITHROMAX Z-LIAM 250 MG TABS 4198065 AZITHROMYCIN Inactive TERBINAFINE HCL 250 MG TABS 1 qDay TERBINAFINE HCL 250 MG TABS 033011 TERBINAFINE HCL Inactive Vital Signs Date Name [...] 65-110 Encounters Code Encounter Date Provider Facility CPT-27351 Level 4 Est. Patient 17:36:45 CDT Daniel Wilson MD [facility] CPT-64811 Level 4 Est. Patient 11:11:21 CDT Daniel Wilson MD [facility] CPT-10007 Level 4 Est. Patient 17:38:38 CDT Daniel Wilson MD [facility] CPT-50987 Level 3 Est. Patient 15:33:36 PIPE OUT WORKER Radu Snow DO [facility] CPT-73672 Level 3 Est. Patient 17:50:06 CDT Daniel Wilson MD [facility] CPT-05935 Level 4 Est. Patient 18:11:39 PIPE OUT WORKER Daniel Wilson MD [facility] Procedures Code Procedure Name Date Entry Date Standard Description CPT-LR Lesion Removal 12:04:40 CDT CPT-75521 Venipuncture Draw Fee 08:33:06 CDT CPT-80357 Venipuncture Draw Fee 08:17:56 CDT CPT-16411 Venipuncture Draw Fee 08:17:16 PIPE OUT WORKER CPT-00547 Venipuncture Draw Fee 08:04:18 CDT CPT-72840 Venipuncture Draw Fee 08:39:03 PIPE OUT WORKER
--- OUTSIDE RECORDS SUMMARY | 2018-08-07 18:23 | XMS REPORT | Clinical Summary ---
Author Author Admin, GUSTAVO Organization [facility] Address Unknown Phone Unavailable Allergies, Adverse Reactions, [...] 146.25 MG ORAL TABLET once daily THYROID 69171117929 Active Rosangela Bundy APRN Active TRAVATAN Z 0.004 % OPHTHALMIC SOLUTION 1 drop in each eye nightly TRAVOPROST 59598865762 Active Rosangela Bundy APRN Active ATROVENT 0.06 % NASAL SOLUTION 1 to 2 sprays each nostril qid prn runny nose IPRATROPIUM BROMIDE 99560717744 No Longer Active Daniel Wilson MD Active PROAIR HFA 108 (90 Base) MCG/ACT INHALATION AEROSOL SOLUTION 2 puffs four times a day as needed ALBUTEROL SULFATE 41070926949 No Longer Active Daniel Wilson MD Active PAROXETINE HCL 20 MG ORAL TABLET 1 daily for depression PAROXETINE HCL 12014833442 Active Rosangela Bundy APRN Active LISINOPRIL-HYDROCHLOROTHIAZIDE 10-12.5 MG ORAL TABLET 1 every morning for high blood pressure LISINOPRIL-HYDROCHLOROTHIAZIDE 60149894102 Active Rosangela Bundy APRN Active DILTIAZEM HCL ER 240 MG ORAL CAPSULE EXTENDED RELEASE 24 HOUR 1 daily for high blood pressure DILTIAZEM HCL 88509149781 Active STONEY Sol Active TERBINAFINE HCL 250 MG ORAL TABLET 1 qDay TERBINAFINE HCL 83404549471 No Longer Active Daniel Wilson MD Active PROGESTERONE (150MCG) TESTOSTERONE (2.5MCG) BI-EST 2MG COMP 1 every evening PROGESTERONE (150MCG) TESTOSTERONE (2.5MCG) BI-EST 2MG COMP Active Daniel Wilson MD Active COMPOUNDED T3 (22.5MCG) AND T4 (95MCG) 1 every morning No Longer Active Daniel Wilson MD Active D3-50 63939 UNIT ORAL CAPSULE one capsule once a week CHOLECALCIFEROL 93315568131 Active Daniel Wilson MD Active METFORMIN HCL 500 MG ORAL TABLET 1 tablet by mouth twice daily METFORMIN HCL 18900645412 Active Daniel Wilson MD Active LUMIGAN 0.03 % SOLN one drop in each eye at night BIMATOPROST 52366007271 No Longer Active Daniel Wilson MD Active TESSALON PERLES 100 MG ORAL CAPSULE 1 to 2 tablets by mouth 3 times daily as needed for cough BENZONATATE 43534510431 No Longer Active Daniel Wilson MD Active PREDNISONE 20 MG ORAL TABLET 1 po bid 2 days, then daily for 2 days. PREDNISONE 73434396230 No Longer Active Daniel Wilson MD Active ZITHROMAX Z-LIAM 250 MG ORAL TABLET 2 today, then 1 daily for 4 days AZITHROMYCIN 77725686934 No Longer Active Daniel Wilson MD Active PREDNISONE 20 MG ORAL TABLET 1 po bid 2 days, then daily for 2 days. PREDNISONE 20 MG ORAL TABLET 288242 PREDNISONE Inactive TESSALON PERLES 100 MG ORAL CAPSULE 1 to 2 tablets by mouth 3 times daily as needed for cough TESSALON PERLES 100 MG ORAL CAPSULE 275594 BENZONATATE Inactive PROAIR HFA 108 (90 Base) MCG/ACT INHALATION AEROSOL SOLUTION 2 puffs four times a day as needed PROAIR HFA 108 (90 Base) MCG/ACT INHALATION AEROSOL SOLUTION ALBUTEROL SULFATE Inactive ATROVENT 0.06 % NASAL SOLUTION 1 to 2 sprays each nostril qid prn runny nose ATROVENT 0.06 % NASAL SOLUTION 3216771 IPRATROPIUM BROMIDE Inactive ZITHROMAX Z-LIAM 250 MG ORAL TABLET 2 today, then 1 daily for 4 days ZITHROMAX Z-LIAM 250 MG ORAL TABLET 286640 AZITHROMYCIN Inactive TERBINAFINE HCL 250 MG ORAL TABLET 1 qDay TERBINAFINE HCL 250 MG ORAL TABLET 585138 TERBINAFINE HCL Inactive Vital Signs Date Name [...] ... - Chemistry sodium, serum 139 mmol/L 245-862 7670/05/10 carbon dioxide, venous blood 28.4 mmol/L 21.0-32.0 [...] 5.8 % 4.3-6.0 cholesterol, serum 209 mg/dL 283-388 3650/05/10 triglyceride, serum, fasting 70 mg/dL 30-200 HDL [...] microalbumin, urine 10 mg/L 0-19 Lab Report: MICROALB/CREAT W/RATIO - Chemistry albumin/creatinine ratio, urine <30 mg/g Normal mg/g mg/g{creat} 0-29 Lab Report: MICROALB/CREAT W/RATIO - Lab microalbumin, urine 10 mg/L 0-19 Encounters Code Encounter Date Provider Facility CPT-86473 Level 4 Est. Patient 22:48:05 CDT Rosangela Bundy APRN [facility] CPT-96361 Level 4 Est. Patient 09:51:42 CDT Daniel Wilson MD [facility] CPT-32718 Level 4 Est. Patient 17:36:45 CDT Daniel Wilson MD [facility] CPT-26262 Level 4 Est. Patient 11:11:21 CDT Daniel Wilson MD [facility] CPT-48836 Level 4 Est. Patient 17:38:38 CDT Daniel Wilson MD [facility] CPT-22498 Level 3 Est. Patient 15:33:36 LIFESTYLE COORDINATOR Radu Snow DO [facility] CPT-60768 Level 3 Est. Patient 17:50:06 CDT Daniel Wilson MD [facility] CPT-03573 Level 4 Est. Patient 18:11:39 LIFESTYLE COORDINATOR Daniel Wilson MD [facility] Procedures Code Procedure Name Date Entry Date Standard Description CPT-000 Give Zostavax 12:48:22 CDT CPT-87666 First Vx - Ix admin via ID IM or jet injects without counseling by physician 13:17:45 CDT CPT-27705 Zostavax Subcutaneous Solution Reconstituted 60934 UNT/0.65ML 11/15 13:17:45 CDT CPT-36575 Venipuncture Draw Fee 10:33:11 CDT CPT-39913 Venipuncture Draw Fee 08:32:33 CDT CPT-LR Lesion Removal 12:04:40 CDT CPT-81115 Venipuncture Draw Fee 08:33:06 CDT CPT-75846 Venipuncture Draw Fee 08:17:56 CDT CPT-77813 Venipuncture Draw Fee 08:17:16 LIFESTYLE COORDINATOR CPT-60704 Venipuncture Draw Fee 08:04:18 CDT CPT-35931 Venipuncture Draw Fee 08:39:03 LIFESTYLE COORDINATOR
--- OUTSIDE RECORDS SUMMARY | 2018-08-07 18:24 | XMS REPORT | Clinical Summary ---
Author Author Admin, E Organization [facility] Address Unknown Phone Unavailable Allergies, Adverse Reactions, [...] 146.25 MG ORAL TABLET once daily THYROID 65570157792 Active Rosangela Bundy APRN Active TRAVATAN Z 0.004 % OPHTHALMIC SOLUTION 1 drop in each eye nightly TRAVOPROST 35193688267 Active Rosangela Bundy APRN Active ATROVENT 0.06 % NASAL SOLUTION 1 to 2 sprays each nostril qid prn runny nose IPRATROPIUM BROMIDE 50988541942 No Longer Active Daniel Wilson MD Active PROAIR HFA 108 (90 Base) MCG/ACT INHALATION AEROSOL SOLUTION 2 puffs four times a day as needed ALBUTEROL SULFATE 07922865249 No Longer Active Daniel Wilson MD Active PAROXETINE HCL 20 MG ORAL TABLET 1 daily for depression PAROXETINE HCL 71082256565 Active Daniel Wilson MD Active LISINOPRIL-HYDROCHLOROTHIAZIDE 10-12.5 MG ORAL TABLET 1 every morning for high blood pressure LISINOPRIL-HYDROCHLOROTHIAZIDE 34642896011 Active Daniel Wilson MD Active DILTIAZEM HCL ER 240 MG ORAL CAPSULE EXTENDED RELEASE 24 HOUR 1 daily for high blood pressure DILTIAZEM HCL 73172800282 Active Daniel Wilson MD Active TERBINAFINE HCL 250 MG ORAL TABLET 1 qDay TERBINAFINE HCL 70049751562 No Longer Active Daniel Wilson MD Active PROGESTERONE (150MCG) TESTOSTERONE (2.5MCG) BI-EST 2MG COMP 1 every evening PROGESTERONE (150MCG) TESTOSTERONE (2.5MCG) BI-EST 2MG COMP Active Daniel Wilson MD Active COMPOUNDED T3 (22.5MCG) AND T4 (95MCG) 1 every morning No Longer Active Daniel Wilson MD Active D3-50 19794 UNIT ORAL CAPSULE one capsule once a week CHOLECALCIFEROL 98137884368 Active Daniel Wilson MD Active METFORMIN HCL 500 MG ORAL TABLET 1 tablet by mouth twice daily METFORMIN HCL 28566648211 Active Daniel Wilson MD Active LUMIGAN 0.03 % SOLN one drop in each eye at night BIMATOPROST 96198725586 No Longer Active Daniel Wilson MD Active TESSALON PERLES 100 MG ORAL CAPSULE 1 to 2 tablets by mouth 3 times daily as needed for cough BENZONATATE 25988164339 No Longer Active Daniel Wilson MD Active PREDNISONE 20 MG ORAL TABLET 1 po bid 2 days, then daily for 2 days. PREDNISONE 18628689703 No Longer Active Daniel Wilson MD Active ZITHROMAX Z-LIAM 250 MG ORAL TABLET 2 today, then 1 daily for 4 days AZITHROMYCIN 98395862582 No Longer Active Daniel Wilson MD Active PREDNISONE 20 MG ORAL TABLET 1 po bid 2 days, then daily for 2 days. PREDNISONE 20 MG ORAL TABLET 438838 PREDNISONE Inactive TESSALON PERLES 100 MG ORAL CAPSULE 1 to 2 tablets by mouth 3 times daily as needed for cough TESSALON PERLES 100 MG ORAL CAPSULE 627248 BENZONATATE Inactive PROAIR HFA 108 (90 Base) [...] days ZITHROMAX Z-LIAM 250 MG ORAL TABLET 939226 AZITHROMYCIN Inactive TERBINAFINE HCL 250 MG ORAL TABLET 1 qDay TERBINAFINE HCL 250 MG ORAL TABLET 100858 TERBINAFINE HCL Inactive Vital Signs Date Name [...] ... - Chemistry sodium, serum 139 mmol/L 497-397 2165/05/10 carbon dioxide, venous blood 28.4 mmol/L 21.0-32.0 [...] 5.8 % 4.3-6.0 cholesterol, serum 209 mg/dL 452-548 7748/05/10 triglyceride, serum, fasting 70 mg/dL 30-200 HDL [...] 10 mg/L 0-19 Lab Report: VITAMIN D, 25-HYDROXY/92956 - Chemistry vitamin D 25-hydroxy, serum 72 ng/mL 30-100 Encounters Code Encounter Date Provider Facility CPT-93907 [id number] Vst-Est Level IV 17:44:01 CDT Daniel Wilson MD [facility] CPT-44250 Level 4 Est. Patient 22:48:05 CDT Rosangela Bundy APRN [facility] CPT-40784 Level 4 Est. Patient 09:51:42 CDT Daniel Wilson MD [facility] CPT-62423 Level 4 Est. Patient 17:36:45 CDT Daniel Wilson MD [facility] CPT-17861 Level 4 Est. Patient 11:11:21 CDT Daniel Wilson MD [facility] CPT-80164 Level 4 Est. Patient 17:38:38 CDT Daniel Wilson MD [facility] CPT-79013 Level 3 Est. Patient 15:33:36 SECTION SUPERVISOR Radu Snow DO [facility] CPT-27410 Level 3 Est. Patient 17:50:06 CDT Daniel Wilson MD [facility] CPT-02480 Level 4 Est. Patient 18:11:39 SECTION SUPERVISOR Daniel Wilson MD [facility] Procedures Code Procedure Name Date Entry Date Standard Description CPT-000 Give Zostavax 12:48:22 CDT CPT-25027 First Vx - Ix admin via ID IM or jet injects without counseling by physician 13:17:45 CDT CPT-62215 Zostavax Subcutaneous Solution Reconstituted 15961 UNT/0.65ML 11/15 13:17:45 CDT CPT-72049 Venipuncture Draw Fee 10:33:11 CDT CPT-97184 Venipuncture Draw Fee 08:32:33 CDT CPT-LR Lesion Removal 12:04:40 CDT CPT-96594 Venipuncture Draw Fee 08:33:06 CDT CPT-50600 Venipuncture Draw Fee 08:17:56 CDT CPT-55613 Venipuncture Draw Fee 08:17:16 SECTION SUPERVISOR CPT-78213 Venipuncture Draw Fee 08:04:18 CDT CPT-15617 Venipuncture Draw Fee 08:39:03 SECTION SUPERVISOR
--- OUTSIDE RECORDS SUMMARY | 2018-08-07 18:24 | XMS REPORT | Clinical Summary ---
Author Author Admin, E Organization [facility] Address Unknown Phone Unavailable Allergies, Adverse Reactions, [...] (age-related) (natural) Health care maintenance V70.0 Active Rosagnela Bundy APRN Routine general medical examination at [...] 146.25 MG ORAL TABLET once daily THYROID 76312912683 Active Rosangela Bundy APRN Active TRAVATAN Z 0.004 % OPHTHALMIC SOLUTION 1 drop in each eye nightly TRAVOPROST 48169043506 Active Rosangela Bundy APRN Active ATROVENT 0.06 % NASAL SOLUTION 1 to 2 sprays each nostril qid prn runny nose IPRATROPIUM BROMIDE 61287088523 No Longer Active Daniel Wilson MD Active PROAIR HFA 108 (90 Base) MCG/ACT INHALATION AEROSOL SOLUTION 2 puffs four times a day as needed ALBUTEROL SULFATE 30239054364 No Longer Active Daniel Wilson MD Active PAROXETINE HCL 20 MG ORAL TABLET 1 daily for depression PAROXETINE HCL 98783698169 Active Daniel Wilson MD Active LISINOPRIL-HYDROCHLOROTHIAZIDE 10-12.5 MG ORAL TABLET 1 every morning for high blood pressure LISINOPRIL-HYDROCHLOROTHIAZIDE 77678416506 Active Daniel Wilson MD Active DILTIAZEM HCL ER 240 MG ORAL CAPSULE EXTENDED RELEASE 24 HOUR 1 daily for high blood pressure DILTIAZEM HCL 62794372222 Active Daniel Wilson MD Active TERBINAFINE HCL 250 MG ORAL TABLET 1 qDay TERBINAFINE HCL 23215701976 No Longer Active Daniel Wilson MD Active PROGESTERONE (150MCG) TESTOSTERONE (2.5MCG) BI-EST 2MG COMP 1 every evening PROGESTERONE (150MCG) TESTOSTERONE (2.5MCG) BI-EST 2MG COMP Active Daniel Wilson MD Active COMPOUNDED T3 (22.5MCG) AND T4 (95MCG) 1 every morning No Longer Active Daniel Wilson MD Active D3-50 89012 UNIT ORAL CAPSULE one capsule once a week CHOLECALCIFEROL 47724337170 Active Daniel Wilson MD Active METFORMIN HCL 500 MG ORAL TABLET 1 tablet by mouth twice daily METFORMIN HCL 66415617831 Active Daniel Wilson MD Active LUMIGAN 0.03 % SOLN one drop in each eye at night BIMATOPROST 94896878936 No Longer Active Dnaiel Wilson MD Active TESSALON PERLES 100 MG ORAL CAPSULE 1 to 2 tablets by mouth 3 times daily as needed for cough BENZONATATE 73479095280 No Longer Active Daniel Wilson MD Active PREDNISONE 20 MG ORAL TABLET 1 po bid 2 days, then daily for 2 days. PREDNISONE 58087999772 No Longer Active Daniel Wilson MD Active ZITHROMAX Z-LIAM 250 MG ORAL TABLET 2 today, then 1 daily for 4 days AZITHROMYCIN 59404049925 No Longer Active Daniel Wilson MD Active PREDNISONE 20 MG ORAL TABLET 1 po bid 2 days, then daily for 2 days. PREDNISONE 20 MG ORAL TABLET 704800 PREDNISONE Inactive TESSALON PERLES 100 MG ORAL CAPSULE 1 to 2 tablets by mouth 3 times daily as needed for cough TESSALON PERLES 100 MG ORAL CAPSULE 449110 BENZONATATE Inactive PROAIR HFA 108 (90 Base) [...] days ZITHROMAX Z-LIAM 250 MG ORAL TABLET 242904 AZITHROMYCIN Inactive TERBINAFINE HCL 250 MG ORAL TABLET 1 qDay TERBINAFINE HCL 250 MG ORAL TABLET 555033 TERBINAFINE HCL Inactive Vital Signs Date Name [...] ... - Chemistry sodium, serum 139 mmol/L 668-060 8816/05/10 carbon dioxide, venous blood 28.4 mmol/L 21.0-32.0 [...] 5.8 % 4.3-6.0 cholesterol, serum 209 mg/dL 675-687 6898/05/10 triglyceride, serum, fasting 70 mg/dL 30-200 HDL [...] 10 mg/L 0-19 Lab Report: VITAMIN D, 25-HYDROXY/75538 - Chemistry vitamin D 25-hydroxy, serum 72 ng/mL 30-100 Encounters Code Encounter Date Provider Facility CPT-21108 [id number] Vst-Est Level IV 17:44:01 CDT Daniel Wilson MD [facility] CPT-08062 Level 4 Est. Patient 22:48:05 CDT Rosangela Bundy APRN [facility] CPT-54145 Level 4 Est. Patient 09:51:42 CDT Daniel Wilson MD [facility] CPT-89903 Level 4 Est. Patient 17:36:45 CDT Daniel Wilson MD [facility] CPT-48094 Level 4 Est. Patient 11:11:21 CDT Daniel Wilson MD [facility] CPT-13398 Level 4 Est. Patient 17:38:38 CDT Daniel Wilson MD [facility] CPT-97668 Level 3 Est. Patient 15:33:36 TIN FLOPPER Radu Snow DO [facility] CPT-68543 Level 3 Est. Patient 17:50:06 CDT Daniel Wilson MD [facility] CPT-54779 Level 4 Est. Patient 18:11:39 TIN FLOPPER Daniel Wilson MD [facility] Procedures Code Procedure Name Date Entry Date Standard Description CPT-000 Give Zostavax 12:48:22 CDT CPT-37909 First Vx - Ix admin via ID IM or jet injects without counseling by physician 13:17:45 CDT CPT-50069 Zostavax Subcutaneous Solution Reconstituted 22787 UNT/0.65ML 11/15 13:17:45 CDT CPT-21776 Venipuncture Draw Fee 10:33:11 CDT CPT-01437 Venipuncture Draw Fee 08:32:33 CDT CPT-LR Lesion Removal 12:04:40 CDT CPT-26258 Venipuncture Draw Fee 08:33:06 CDT CPT-05757 Venipuncture Draw Fee 08:17:56 CDT CPT-07670 Venipuncture Draw Fee 08:17:16 TIN FLOPPER CPT-89658 Venipuncture Draw Fee 08:04:18 CDT CPT-71458 Venipuncture Draw Fee 08:39:03 TIN FLOPPER
--- OUTSIDE RECORDS SUMMARY | 2018-08-07 18:24 | XMS REPORT | Clinical Summary ---
Author Author Admin, GUSTAVO Organization [facility] Address Unknown Phone Unavailable Allergies, Adverse [...] [place] Unspecified endocrine disorder URI 465.9 Resolved Danile Wilson MD Acute upper respiratory infections of unspecified site FH DIABETES V18.0 Active Radu Snow DO Family history of diabetes mellitus LARYNGITIS, ACUTE 464.00 Resolved Daniel Wilson MD Acute laryngitis without mention of obstruction HYPERTENSION 401.1 Active Daniel Wilson MD Benign essential hypertension OBESITY 278.00 Active Daniel Wilson MD Obesity , unspecified Special screening for osteoporosis V82.81 Active Diana Sy [facility] Screening for osteoporosis Neoplasm of [...] Patient Instruction DILTIAZEM HCL ER 240 MG [id number] 1 daily for high blood pressure DILTIAZEM HCL 64399339076 Active Daniel Wilson MD Active TERBINAFINE HCL 250 MG TABS 1 qDay TERBINAFINE HCL 11025516921 No Longer Active Daniel Wilson MD Active PROGESTERONE (150MCG) TESTOSTERONE (2.5MCG) BI-EST 2MG COMP 1 every evening PROGESTERONE (150MCG) TESTOSTERONE (2.5MCG) BI-EST 2MG COMP Active Daniel Wilson MD Active COMPOUNDED T3 (22.5MCG) AND T4 (95MCG) 1 every morning Active Daniel Wilson MD Active D3-50 04762 UNIT CAPS one capsule once a week CHOLECALCIFEROL 46061124525 Active Danile Wilson MD Active METFORMIN HCL 500 MG TABS 1 tablet by mouth twice daily METFORMIN HCL 00880585754 Active Daniel Wilson MD Active PROAIR HFA 108 (90 BASE) MCG/ACT AERS 2 puffs four times a day as needed 2012 ALBUTEROL SULFATE 35667015146 Active Daniel Wilson MD Active LUMIGAN 0.03 % SOLN one drop in each eye at night BIMATOPROST 31028495726 Active Daniel Wilson MD Active TESSALON PERLES 100 MG CAP 1 to 2 tablets by mouth 3 times daily as needed for cough BENZONATATE 03852236818 No Longer Active Daniel Wilson MD Active PREDNISONE 20 MG TAB 1 po bid 2 days, then daily for 2 days. 2012 PREDNISONE 76803781866 No Longer Active Daniel Wilson MD Active ATROVENT 0.06 % SOLUTION 1 to 2 sprays each nostril qid prn runny nose 03/05 IPRATROPIUM BROMIDE 64393801473 Active Daniel Wilson MD Active ZITHROMAX Z-LIAM 250 MG TABS 2 today, then 1 daily for 4 days 2011 AZITHROMYCIN 06577225197 No Longer Active Daniel Wilson MD Active PAROXETINE HCL 10 MG TABS 1 PO Q AM PAROXETINE HCL 01058059669 Active Daniel Wilson MD Active PREDNISONE 20 MG TAB 1 po bid 2 days, then daily for 2 days. 2012 PREDNISONE 20 MG TAB 095053 PREDNISONE Inactive TESSALON PERLES 100 MG CAP 1 to 2 tablets by mouth 3 times daily as needed for cough TESSALON PERLES 100 MG CAP 802114 BENZONATATE Inactive ZITHROMAX Z-LIAM 250 MG TABS 2 today, then 1 daily for 4 days 2011 ZITHROMAX Z-LIAM 250 MG TABS 9360748 AZITHROMYCIN Inactive TERBINAFINE HCL 250 MG TABS 1 qDay TERBINAFINE HCL 250 MG TABS 877445 TERBINAFINE HCL Inactive Vital Signs Date Name [...] 65-110 Encounters Code Encounter Date Provider Facility CPT-59598 Level 4 Est. Patient 11:11:21 CDT Daniel Wilson MD [facility] CPT-18403 Level 4 Est. Patient 17:38:38 CDT Daniel Wilson MD [facility] CPT-80596 Level 3 Est. 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 Patient 17:50:06 CDT Daniel Wilson MD [facility] CPT-21792 Level 4 Est. Patient 18:11:39 FISH NET STRINGER Daniel Wilson MD [facility] Procedures Code Procedure Name Date Entry Date Standard Description CPT-LR Lesion Removal 12:04:40 CDT CPT-27633 Venipuncture Draw Fee 08:33:06 CDT CPT-99421 Venipuncture Draw Fee 08:17:56 CDT CPT-73498 Venipuncture Draw Fee 08:17:16 FISH NET STRINGER CPT-73372 Venipuncture Draw Fee 08:04:18 CDT CPT-24834 Venipuncture Draw Fee 08:39:03 FISH NET STRINGER
--- OUTSIDE RECORDS SUMMARY | 2018-08-07 18:25 | XMS REPORT | Clinical Summary ---
Author Author Admin, GUSTAVO Organization [facility] Address Unknown Phone [...] Daniel Wilson MD URI ICD-465.9 Inactive Daniel Wlison MD LARYNGITIS, ACUTE ICD-464.00 Inactive Daniel Wilson MD Adult onset diabetes mellitus ICD-250.00 Inactive Daniel Wilson MD Medication List Medication Instructions Start Date Stop Date Generic Name NDC Status Provider Patient Instruction ATROVENT 0.06 % SOLUTION 1 to 2 sprays each nostril qid prn runny nose 03/05 IPRATROPIUM BROMIDE 56201469242 No Longer Active Daniel Wilson MD Active PROAIR HFA 108 (90 BASE) MCG/ACT AERS 2 puffs four times a day as needed 2012 ALBUTEROL SULFATE 40973586196 No Longer Active Daniel Wilson MD Active PAROXETINE HCL 20 MG TABS 1 daily for depression PAROXETINE HCL 78339858656 Active STONEY Sol Active LISINOPRIL-HYDROCHLOROTHIAZIDE 10-12.5 MG TABS 1 every morning for high blood pressure LISINOPRIL-HYDROCHLOROTHIAZIDE 75690106884 Active STONEY Sol Active DILTIAZEM HCL ER 240 MG [id number] 1 daily for high blood pressure DILTIAZEM HCL 63699889682 Active Daniel Wilson MD Active TERBINAFINE HCL 250 MG TABS 1 qDay TERBINAFINE HCL 82392327869 No Longer Active Daniel Wilson MD Active PROGESTERONE (150MCG) TESTOSTERONE (2.5MCG) BI-EST 2MG COMP 1 every evening PROGESTERONE (150MCG) TESTOSTERONE (2.5MCG) BI-EST 2MG COMP Active Daniel Wilson MD Active COMPOUNDED T3 (22.5MCG) AND T4 (95MCG) 1 every morning Active Daniel Wilson MD Active D3-50 12451 UNIT CAPS one capsule once a week CHOLECALCIFEROL 42302470702 Active Daniel Wilson MD Active METFORMIN HCL 500 MG TABS 1 tablet by mouth twice daily METFORMIN HCL 48079129859 Active Daniel Wilson MD Active LUMIGAN 0.03 % SOLN one drop in each eye at night BIMATOPROST 00258768631 Active Daniel Wilson MD Active TESSALON PERLES 100 MG CAP 1 to 2 tablets by mouth 3 times daily as needed for cough BENZONATATE 63386332085 No Longer Active Daniel Wilson MD Active PREDNISONE 20 MG TAB 1 po bid 2 days, then daily for 2 days. 2012 PREDNISONE 50116490932 No Longer Active Daniel Wilson MD Active ZITHROMAX Z-LIAM 250 MG TABS 2 today, then 1 daily for 4 days 2011 AZITHROMYCIN 44924745666 No Longer Active Daniel Wilson MD Active PREDNISONE 20 MG TAB 1 po bid 2 days, then daily for 2 days. 2012 PREDNISONE 20 MG TAB 948060 PREDNISONE Inactive TESSALON PERLES 100 MG CAP 1 to 2 tablets by mouth 3 times daily as needed for cough TESSALON PERLES 100 MG CAP 251245 BENZONATATE Inactive PROAIR HFA 108 (90 BASE) [...] days 2011 ZITHROMAX Z-LIAM 250 MG TABS 9601199 AZITHROMYCIN Inactive TERBINAFINE HCL 250 MG TABS 1 qDay TERBINAFINE HCL 250 MG TABS 455337 TERBINAFINE HCL Inactive Diagnostic Results Date Name Value Unit Range Description Lab Report: CBC (INCLUDES DIFF/PLT)/6399, COMPREHENSIVE METABOLIC PANEL, ... - Chemistry cholesterol, serum 201 mg/dL 525-526 1912/05/08 HDL cholesterol, serum 82 mg/dL > OR=46 [...] % 11.0-15.0 platelet count 352 THOUSAND/UL 10*3/mm3 702-629 9285/05/08 mean platelet volume 8.1 fL 7.5-12.5 Lab Report: VITAMIN D, 25-HYDROXY/11482 - Chemistry vitamin D 25-hydroxy, serum 111 ng/mL 30-100 Encounters Code Encounter Date Provider Facility CPT-97796 Level 4 Est. Patient 09:51:42 CDT Daniel Wilson MD [facility] CPT-82984 Level 4 Est. Patient 17:36:45 CDT Daniel Wilson MD [facility] CPT-82285 Level 4 Est. Patient 11:11:21 CDT Daniel Wilson MD [facility] CPT-32010 Level 4 Est. Patient 17:38:38 CDT Daniel Wilson MD [facility] CPT-64364 Level 3 Est. 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 CPT-62647 Level 3 Est. Patient 17:50:06 CDT Daniel Wilson MD [facility] CPT-73912 Level 4 Est. Patient 18:11:39 GRAIN UNLOADER Daniel Wilson MD [facility] Procedures Code Procedure Name Date Entry Date Standard Description CPT-19164 Venipuncture Draw Fee 10:33:11 CDT CPT-50374 Venipuncture Draw Fee 08:32:33 CDT CPT-LR Lesion Removal 12:04:40 CDT CPT-89697 Venipuncture Draw Fee 08:33:06 CDT CPT-79962 Venipuncture Draw Fee 08:17:56 CDT CPT-92442 Venipuncture Draw Fee 08:17:16 GRAIN UNLOADER CPT-77551 Venipuncture Draw Fee 08:04:18 CDT CPT-92457 Venipuncture Draw Fee 08:39:03 GRAIN UNLOADER
--- OUTSIDE RECORDS SUMMARY | 2018-08-07 18:25 | XMS REPORT | Clinical Summary ---
Author Author Admin, E Organization [facility] Address Unknown Phone [...] qid prn runny nose 03/05 IPRATROPIUM BROMIDE 62091805079 No Longer Active Daniel Wilson MD Active PROAIR HFA 108 (90 BASE) MCG/ACT AERS 2 puffs four times a day as needed 2012 ALBUTEROL SULFATE 22987549337 No Longer Active Daniel Wilson MD Active PAROXETINE HCL 20 MG TABS 1 daily for depression PAROXETINE HCL 84111938283 Active MELINDA SolMilla Active LISINOPRIL-HYDROCHLOROTHIAZIDE 10-12.5 MG TABS 1 every morning for high blood pressure LISINOPRIL-HYDROCHLOROTHIAZIDE 22468148613 Active Akanksha Paredes STONEY Active DILTIAZEM HCL ER 240 MG [id number] 1 daily for high blood pressure DILTIAZEM HCL 93809268483 Active Daniel Wilson MD Active TERBINAFINE HCL 250 MG TABS 1 qDay TERBINAFINE HCL 19600025284 No Longer Active Daniel Wilson MD Active PROGESTERONE (150MCG) TESTOSTERONE (2.5MCG) BI-EST 2MG COMP 1 every evening PROGESTERONE (150MCG) TESTOSTERONE (2.5MCG) BI-EST 2MG COMP Active Daniel Wilson MD Active COMPOUNDED T3 (22.5MCG) AND T4 (95MCG) 1 every morning Active Daniel Wilson MD Active D3-50 02564 UNIT CAPS one capsule once a week CHOLECALCIFEROL 79044819144 Active Daniel Wilson MD Active METFORMIN HCL 500 MG TABS 1 tablet by mouth twice daily METFORMIN HCL 11116772511 Active Daniel Wilson MD Active LUMIGAN 0.03 % SOLN one drop in each eye at night BIMATOPROST 18651849935 Active Daniel Wilson MD Active TESSALON PERLES 100 MG CAP 1 to 2 tablets by mouth 3 times daily as needed for cough BENZONATATE 96175077706 No Longer Active Daniel Wilson MD Active PREDNISONE 20 MG TAB 1 po bid 2 days, then daily for 2 days. 2012 PREDNISONE 24468660905 No Longer Active Daniel Wilson MD Active ZITHROMAX Z-LIAM 250 MG TABS 2 today, then 1 daily for 4 days 2011 AZITHROMYCIN 94456877749 No Longer Active Daniel Wilson MD Active PREDNISONE 20 MG TAB 1 po bid 2 days, then daily for 2 days. 2012 PREDNISONE 20 MG TAB 164602 PREDNISONE Inactive TESSALON PERLES 100 MG CAP 1 to 2 tablets by mouth 3 times daily as needed for cough TESSALON PERLES 100 MG CAP 966123 BENZONATATE Inactive PROAIR HFA 108 (90 BASE) [...] days 2011 ZITHROMAX Z-LIAM 250 MG TABS 4286746 AZITHROMYCIN Inactive TERBINAFINE HCL 250 MG TABS 1 qDay TERBINAFINE HCL 250 MG TABS 353985 TERBINAFINE HCL Inactive Diagnostic Results Date Name Value Unit Range Description Lab Report: CBC (INCLUDES DIFF/PLT)/6399, COMPREHENSIVE METABOLIC PANEL, ... - Chemistry cholesterol, serum 201 mg/dL 144-499 0526/05/08 HDL cholesterol, serum 82 mg/dL > OR=46 [...] % 11.0-15.0 platelet count 352 THOUSAND/UL 10*3/mm3 233-138 7282/05/08 mean platelet volume 8.1 fL 7.5-12.5 Lab Report: VITAMIN D, 25-HYDROXY/36726 - Chemistry vitamin D 25-hydroxy, serum 111 ng/mL 30-100 Encounters Code Encounter Date Provider Facility CPT-75749 Level 4 Est. Patient 09:51:42 CDT Daniel Wilson MD [facility] CPT-45150 Level 4 Est. Patient 17:36:45 CDT Daniel Wilson MD [facility] CPT-11592 Level 4 Est. Patient 11:11:21 CDT Daniel Wilson MD [facility] CPT-08309 Level 4 Est. Patient 17:38:38 CDT Daniel Wilson MD [facility] CPT-04174 Level 3 Est. Patient 15:33:36 OTOLARYNGOLOGIST Radu Snow DO [facility] CPT-36964 Level 3 Est. Patient 17:50:06 CDT Daniel Wilson MD [facility] CPT-39129 Level 4 Est. Patient 18:11:39 OTOLARYNGOLOGIST Daniel Wilson MD [facility] Procedures Code Procedure Name Date Entry Date Standard Description CPT-19235 Venipuncture Draw Fee 10:33:11 CDT CPT-68509 Venipuncture Draw Fee 08:32:33 CDT CPT-LR Lesion Removal 12:04:40 CDT CPT-02182 Venipuncture Draw Fee 08:33:06 CDT CPT-99486 Venipuncture Draw Fee 08:17:56 CDT CPT-93097 Venipuncture Draw Fee 08:17:16 OTOLARYNGOLOGIST CPT-49594 Venipuncture Draw Fee 08:04:18 CDT CPT-38633 Venipuncture Draw Fee 08:39:03 OTOLARYNGOLOGIST
--- OUTSIDE RECORDS SUMMARY | 2018-08-07 18:25 | XMS REPORT | Clinical Summary ---
[...] 146.25 MG ORAL TABLET once daily THYROID 34781484572 Active Rosangela Bundy APRN Active TRAVATAN Z 0.004 % OPHTHALMIC SOLUTION 1 drop in each eye nightly TRAVOPROST 39450042841 Active Rosangela Bundy APRN Active ATROVENT 0.06 % NASAL SOLUTION 1 to 2 sprays each nostril qid prn runny nose IPRATROPIUM BROMIDE 35637905478 No Longer Active Daniel Wilson MD Active PROAIR HFA 108 (90 Base) MCG/ACT INHALATION AEROSOL SOLUTION 2 puffs four times a day as needed ALBUTEROL SULFATE 10324075268 No Longer Active Daniel Wilson MD Active PAROXETINE HCL 20 MG ORAL TABLET 1 daily for depression PAROXETINE HCL 74147394943 Active Rosangela Bundy APRN Active LISINOPRIL-HYDROCHLOROTHIAZIDE 10-12.5 MG ORAL TABLET 1 every morning for high blood pressure LISINOPRIL-HYDROCHLOROTHIAZIDE 51659077127 Active Rosangela Bundy APRN Active DILTIAZEM HCL ER 240 MG ORAL CAPSULE EXTENDED RELEASE 24 HOUR 1 daily for high blood pressure DILTIAZEM HCL 91574844285 Active STONEY Sol Active TERBINAFINE HCL 250 MG ORAL TABLET 1 qDay TERBINAFINE HCL 03825322680 No Longer Active Daniel Wilson MD Active PROGESTERONE (150MCG) TESTOSTERONE (2.5MCG) BI-EST 2MG COMP 1 every evening PROGESTERONE (150MCG) TESTOSTERONE (2.5MCG) BI-EST 2MG COMP Active Daniel Wilson MD Active COMPOUNDED T3 (22.5MCG) AND T4 (95MCG) 1 every morning No Longer Active Daniel Wilson MD Active D3-50 43212 UNIT ORAL CAPSULE one capsule once a week CHOLECALCIFEROL 84447699380 Active Daniel Wilson MD Active METFORMIN HCL 500 MG ORAL TABLET 1 tablet by mouth twice daily METFORMIN HCL 42141830544 Active Daniel Wilson MD Active LUMIGAN 0.03 % SOLN one drop in each eye at night BIMATOPROST 45937226881 No Longer Active Daniel Wilson MD Active TESSALON PERLES 100 MG ORAL CAPSULE 1 to 2 tablets by mouth 3 times daily as needed for cough BENZONATATE 98858801237 No Longer Active Daniel Wilson MD Active PREDNISONE 20 MG ORAL TABLET 1 po bid 2 days, then daily for 2 days. PREDNISONE 97627276356 No Longer Active Daniel Wilson MD Active ZITHROMAX Z-LIAM 250 MG ORAL TABLET 2 today, then 1 daily for 4 days AZITHROMYCIN 41669507913 No Longer Active Daniel Wilson MD Active PREDNISONE 20 MG ORAL TABLET 1 po bid 2 days, then daily for 2 days. PREDNISONE 20 MG ORAL TABLET 168363 PREDNISONE Inactive TESSALON PERLES 100 MG ORAL CAPSULE 1 to 2 tablets by mouth 3 times daily as needed for cough TESSALON PERLES 100 MG ORAL CAPSULE 307413 BENZONATATE Inactive PROAIR HFA 108 (90 Base) MCG/ACT INHALATION AEROSOL SOLUTION 2 puffs four times a day as needed PROAIR HFA 108 (90 Base) MCG/ACT INHALATION AEROSOL SOLUTION ALBUTEROL SULFATE Inactive ATROVENT 0.06 % NASAL SOLUTION 1 to 2 sprays each nostril qid prn runny nose ATROVENT 0.06 % NASAL SOLUTION 1737192 IPRATROPIUM BROMIDE Inactive ZITHROMAX Z-LIAM 250 MG ORAL TABLET 2 today, then 1 daily for 4 days ZITHROMAX Z-LIAM 250 MG ORAL TABLET 685484 AZITHROMYCIN Inactive TERBINAFINE HCL 250 MG ORAL TABLET 1 qDay TERBINAFINE HCL 250 MG ORAL TABLET 311695 TERBINAFINE HCL Inactive Vital Signs Date Name [...] ... - Chemistry sodium, serum 139 mmol/L 255-936 1008/05/10 carbon dioxide, venous blood 28.4 mmol/L 21.0-32.0 [...] 5.8 % 4.3-6.0 cholesterol, serum 209 mg/dL 282-593 0611/05/10 triglyceride, serum, fasting 70 mg/dL 30-200 HDL [...] 10 mg/L 0-19 Lab Report: VITAMIN D, 25-HYDROXY/86417 - Chemistry vitamin D 25-hydroxy, serum 72 ng/mL 30-100 Encounters Code Encounter Date Provider Facility CPT-83689 Level 4 Est. Patient 22:48:05 CDT Rosangela Bundy APRN [facility] CPT-64849 Level 4 Est. Patient 09:51:42 CDT Daniel Wilson MD [facility] CPT-01052 Level 4 Est. Patient 17:36:45 CDT Daniel Wilson MD [facility] CPT-78654 Level 4 Est. Patient 11:11:21 CDT Daniel Wilson MD [facility] CPT-94552 Level 4 Est. Patient 17:38:38 CDT Daniel Wilson MD [facility] CPT-73580 Level 3 Est. Patient 15:33:36 LEATHER TANNER Radu Snow DO [facility] CPT-54568 Level 3 Est. Patient 17:50:06 CDT Daniel Wilson MD [facility] CPT-84162 Level 4 Est. Patient 18:11:39 LEATHER TANNER Daniel Wilson MD [facility] Procedures Code Procedure Name Date Entry Date Standard Description CPT-000 Give Zostavax 12:48:22 CDT CPT-20147 First Vx - Ix admin via ID IM or jet injects without counseling by physician 13:17:45 CDT CPT-20971 Zostavax Subcutaneous Solution Reconstituted 46654 UNT/0.65ML 11/15 13:17:45 CDT CPT-11357 Venipuncture Draw Fee 10:33:11 CDT CPT-15775 Venipuncture Draw Fee 08:32:33 CDT CPT-LR Lesion Removal 12:04:40 CDT CPT-90949 Venipuncture Draw Fee 08:33:06 CDT CPT-22267 Venipuncture Draw Fee 08:17:56 CDT CPT-79180 Venipuncture Draw Fee 08:17:16 LEATHER TANNER CPT-64132 Venipuncture Draw Fee 08:04:18 CDT CPT-85263 Venipuncture Draw Fee 08:39:03 LEATHER TANNER
--- OUTSIDE RECORDS SUMMARY | 2018-08-07 18:26 | XMS REPORT | Clinical Summary ---
Author Author Admin, GUSTAVO Organization [facility] Address Unknown Phone Unavailable Allergies, Adverse Reactions, [...] Faux RMA Asymptomatic postmenopausal status (age-related) (natural) URI ICD-465.9 Inactive Daniel Wilson MD LARYNGITIS, ACUTE ICD-464.00 Inactive Daniel Wilson MD PHARYNGITIS ICD-462 Inactive Daniel Wilson MD Adult onset diabetes mellitus ICD-250.00 Inactive Daniel Wilson MD Medication List Medication Instructions Start Date Stop Date Generic Name NDC Status Provider Patient Instruction ATROVENT 0.06 % SOLUTION 1 to 2 sprays each nostril qid prn runny nose 03/05 IPRATROPIUM BROMIDE 80504858517 No Longer Active Daniel Wilson MD Active PROAIR HFA 108 (90 BASE) MCG/ACT AERS 2 puffs four times a day as needed 2012 ALBUTEROL SULFATE 85943513588 No Longer Active Daniel Wislon MD Active PAROXETINE HCL 20 MG TABS 1 daily for depression PAROXETINE HCL 23417790974 Active Daniel Wilson MD Active LISINOPRIL-HYDROCHLOROTHIAZIDE 10-12.5 MG TABS 1 every morning for high blood pressure LISINOPRIL-HYDROCHLOROTHIAZIDE 81758963148 Active Daniel Wilson MD Active DILTIAZEM HCL ER 240 MG [id number] 1 daily for high blood pressure DILTIAZEM HCL 68320281214 Active Daniel Wilson MD Active TERBINAFINE HCL 250 MG TABS 1 qDay TERBINAFINE HCL 25862719246 No Longer Active Daniel Wilson MD Active PROGESTERONE (150MCG) TESTOSTERONE (2.5MCG) BI-EST 2MG COMP 1 every evening PROGESTERONE (150MCG) TESTOSTERONE (2.5MCG) BI-EST 2MG COMP Active Daniel Wilson MD Active COMPOUNDED T3 (22.5MCG) AND T4 (95MCG) 1 every morning Active Daniel Wilson MD Active D3-50 64277 UNIT CAPS one capsule once a week CHOLECALCIFEROL 88497101533 Active Daniel Wilson MD Active METFORMIN HCL 500 MG TABS 1 tablet by mouth twice daily METFORMIN HCL 80828201311 Active Daniel Wilson MD Active LUMIGAN 0.03 % SOLN one drop in each eye at night BIMATOPROST 90998997654 Active Daniel Wilson MD Active TESSALON PERLES 100 MG CAP 1 to 2 tablets by mouth 3 times daily as needed for cough BENZONATATE 47979767004 No Longer Active Daniel Wilson MD Active PREDNISONE 20 MG TAB 1 po bid 2 days, then daily for 2 days. 2012 PREDNISONE 86156852075 No Longer Active Daniel Wilson MD Active ZITHROMAX Z-LIAM 250 MG TABS 2 today, then 1 daily for 4 days 2011 AZITHROMYCIN 64804872124 No Longer Active Daniel Wilson MD Active PREDNISONE 20 MG TAB 1 po bid 2 days, then daily for 2 days. 2012 PREDNISONE 20 MG TAB 408155 PREDNISONE Inactive TESSALON PERLES 100 MG CAP 1 to 2 tablets by mouth 3 times daily as needed for cough TESSALON PERLES 100 MG CAP 859516 BENZONATATE Inactive PROAIR HFA 108 (90 BASE) [...] days 2011 ZITHROMAX Z-LIAM 250 MG TABS 4288526 AZITHROMYCIN Inactive TERBINAFINE HCL 250 MG TABS 1 qDay TERBINAFINE HCL 250 MG TABS 175873 TERBINAFINE HCL Inactive Diagnostic Results Date Name Value Unit Range Description Lab Report: CBC (INCLUDES DIFF/PLT)/6399, COMPREHENSIVE METABOLIC PANEL, ... - Chemistry cholesterol, serum 201 mg/dL 234-562 4376/05/08 HDL cholesterol, serum 82 mg/dL > OR=46 [...] % 11.0-15.0 platelet count 352 THOUSAND/UL 10*3/mm3 848-927 3019/05/08 mean platelet volume 8.1 fL 7.5-12.5 Lab Report: VITAMIN D, 25-HYDROXY/77716 - Chemistry vitamin D 25-hydroxy, serum 111 ng/mL 30-100 Encounters Code Encounter Date Provider Facility CPT-29635 Level 4 Est. Patient 09:51:42 CDT Daniel Wilson MD [facility] CPT-10431 Level 4 Est. Patient 17:36:45 CDT Daniel Wilson MD [facility] CPT-89432 Level 4 Est. Patient 11:11:21 CDT Daniel Wilson MD [facility] CPT-11612 Level 4 Est. Patient 17:38:38 CDT Daniel Wilson MD [facility] CPT-17990 Level 3 Est. Patient 15:33:36 CANDY PACKER Radu Snow DO [facility] CPT-38127 Level 3 Est. Patient 17:50:06 CDT Daniel Wilson MD [facility] CPT-97605 Level 4 Est. Patient 18:11:39 CANDY PACKER Daniel Wilson MD [facility] Procedures Code Procedure Name Date Entry Date Standard Description CPT-34505 Venipuncture Draw Fee 10:33:11 CDT CPT-65340 Venipuncture Draw Fee 08:32:33 CDT CPT-LR Lesion Removal 12:04:40 CDT CPT-17236 Venipuncture Draw Fee 08:33:06 CDT CPT-99854 Venipuncture Draw Fee 08:17:56 CDT CPT-51796 Venipuncture Draw Fee 08:17:16 CANDY PACKER CPT-47427 Venipuncture Draw Fee 08:04:18 CDT CPT-71778 Venipuncture Draw Fee 08:39:03 CANDY PACKER
--- OUTSIDE RECORDS SUMMARY | 2018-08-07 18:26 | XMS REPORT | Clinical Summary ---
Author Author Admin, E Organization [facility] Address Unknown Phone Unavailable Allergies, Adverse Reactions, [...] qid prn runny nose 03/05 IPRATROPIUM BROMIDE 99420186555 No Longer Active Daniel Wilson MD Active PROAIR HFA 108 (90 BASE) MCG/ACT AERS 2 puffs four times a day as needed 2012 ALBUTEROL SULFATE 87927782130 No Longer Active Daniel Wilson MD Active PAROXETINE HCL 20 MG TABS 1 daily for depression PAROXETINE HCL 01539616780 Active MELINDA SolMilla Active LISINOPRIL-HYDROCHLOROTHIAZIDE 10-12.5 MG TABS 1 every morning for high blood pressure LISINOPRIL-HYDROCHLOROTHIAZIDE 57196971342 Active Akanksha Paredes STONEY Active DILTIAZEM HCL ER 240 MG [id number] 1 daily for high blood pressure DILTIAZEM HCL 15497542639 Active Daniel Wilson MD Active TERBINAFINE HCL 250 MG TABS 1 qDay TERBINAFINE HCL 22618783407 No Longer Active Daniel Wilson MD Active PROGESTERONE (150MCG) TESTOSTERONE (2.5MCG) BI-EST 2MG COMP 1 every evening PROGESTERONE (150MCG) TESTOSTERONE (2.5MCG) BI-EST 2MG COMP Active Daniel Wilson MD Active COMPOUNDED T3 (22.5MCG) AND T4 (95MCG) 1 every morning Active Daniel Wilson MD Active D3-50 14960 UNIT CAPS one capsule once a week CHOLECALCIFEROL 81643343390 Active Daniel Wilson MD Active METFORMIN HCL 500 MG TABS 1 tablet by mouth twice daily METFORMIN HCL 53776598880 Active Daniel Wilson MD Active LUMIGAN 0.03 % SOLN one drop in each eye at night BIMATOPROST 83994096269 Active Daniel Wilson MD Active TESSALON PERLES 100 MG CAP 1 to 2 tablets by mouth 3 times daily as needed for cough BENZONATATE 74754698696 No Longer Active Daniel Wilson MD Active PREDNISONE 20 MG TAB 1 po bid 2 days, then daily for 2 days. 2012 PREDNISONE 83139478348 No Longer Active Daniel Wilson MD Active ZITHROMAX Z-LIAM 250 MG TABS 2 today, then 1 daily for 4 days 2011 AZITHROMYCIN 52856979788 No Longer Active Daniel Wilson MD Active PREDNISONE 20 MG TAB 1 po bid 2 days, then daily for 2 days. 2012 PREDNISONE 20 MG TAB 177986 PREDNISONE Inactive TESSALON PERLES 100 MG CAP 1 to 2 tablets by mouth 3 times daily as needed for cough TESSALON PERLES 100 MG CAP 183365 BENZONATATE Inactive PROAIR HFA 108 (90 BASE) [...] days 2011 ZITHROMAX Z-LIAM 250 MG TABS 0926087 AZITHROMYCIN Inactive TERBINAFINE HCL 250 MG TABS 1 qDay TERBINAFINE HCL 250 MG TABS 530499 TERBINAFINE HCL Inactive Diagnostic Results Date Name Value Unit Range Description Lab Report: CBC (INCLUDES DIFF/PLT)/6399, COMPREHENSIVE METABOLIC PANEL, ... - Chemistry cholesterol, serum 201 mg/dL 480-230 4428/05/08 HDL cholesterol, serum 82 mg/dL > OR=46 [...] % 11.0-15.0 platelet count 352 THOUSAND/UL 10*3/mm3 492-629 4528/05/08 mean platelet volume 8.1 fL 7.5-12.5 Lab Report: VITAMIN D, 25-HYDROXY/75913 - Chemistry vitamin D 25-hydroxy, serum 111 ng/mL 30-100 Encounters Code Encounter Date Provider Facility CPT-00062 Level 4 Est. Patient 09:51:42 CDT Daniel Wilson MD [facility] CPT-42024 Level 4 Est. Patient 17:36:45 CDT Daniel Wilson MD [facility] CPT-67534 Level 4 Est. Patient 11:11:21 CDT Daniel Wilson MD [facility] CPT-92952 Level 4 Est. Patient 17:38:38 CDT Daniel Wilson MD [facility] CPT-18101 Level 3 Est. Patient 15:33:36 [employer] Radu Snow DO [facility] CPT-90308 Level 3 Est. Patient 17:50:06 CDT Daniel Wilson MD [facility] CPT-38276 Level 4 Est. Patient 18:11:39 [employer] Daniel Wilson MD [facility] Procedures Code Procedure Name Date Entry Date Standard Description CPT-43237 Venipuncture Draw Fee 10:33:11 CDT CPT-25676 Venipuncture Draw Fee 08:32:33 CDT CPT-LR Lesion Removal 12:04:40 CDT CPT-15163 Venipuncture Draw Fee 08:33:06 CDT CPT-11807 Venipuncture Draw Fee 08:17:56 CDT CPT-42698 Venipuncture Draw Fee 08:17:16 [employer] CPT-03335 Venipuncture Draw Fee 08:04:18 CDT CPT-38389 Venipuncture Draw Fee 08:39:03 [employer]
--- OUTSIDE RECORDS SUMMARY | 2018-08-07 18:26 | XMS REPORT | Continuity of Care Document ---
Author Author [facility] Organization [facility] Address Unknown Phone Unavailable Allergies Active Description Code Type Severity Reaction Onset Reported/Identified Relationship to Patient Clinical Status Yes codeine 1550 1 N/A rash Yes Penicillins 476 3 N/A rash Medications There is no data. Problems Date Dx Coded Attending Type Code Diagnosis Diagnosed By 12/09/2017 Daniel Wilson MD E66.09 Other obesity due to excess calories 12/09/2017 Daniel Wilson MD F32.5 Major depressive disorder, single episode, in full remission 12/09/2017 Daniel Wilson MD Z68.36 Body Mass Index 36.0-36.9 Adult Procedures There is no data. Results There is no data. Encounters ACCT No. Visit Date/Time Discharge Status Pt. Type Provider Facility Loc./Unit Complaint [id number] 07/04/2018 20:01:21 ACT Unknown Daniel Wilson MD [id number] 11/27/2017 12:35:00 11/27/2017 23:59:59 CLS Outpatient Mary Haywood [id number] 11/27/2017 10:21:00 11/27/2017 23:59:59 CLS Outpatient Mary Haywood [id number] 11/14/2017 12:31:00 11/14/2017 23:59:59 CLS Outpatient Alvin Larsen [id number] 11/14/2017 11:00:00 11/14/2017 23:59:59 CLS Outpatient Mary Haywood [id number] 04/23/2017 13:04:00 04/23/2017 23:59:59 CLS Outpatient Mary Haywood [id number] 11/15/2016 11:37:00 11/15/2016 23:59:59 CLS Outpatient Mary Haywood [id number] 11/13/2016 11:00:00 11/13/2016 23:59:59 CLS Outpatient Mary Haywood [id number] 11/22/2015 09:47:00 11/22/2015 23:59:59 CLS Outpatient Mary Haywood [id number] 11/18/2015 09:10:00 11/18/2015 23:59:59 [facility] Outpatient Mary Haywood
[2018-08-07] MEDS ORDERED: ASPIRIN 81 MG CHEW (CHILDREN'S ASA) PO ONE (18:30)
--- NOTE | 2018-08-07 18:30 | ED Cardiac General ---
History of Present Illness General Chief Complaint: Chest Pain Stated Complaint: CP Nursing Triage Note: pt presents to ed with complaints of cough/fever/flu like s/s since 07/31. Pt reports she went to a clinic in [place] on 08/02/18 and diagnosed of bronchitis, tested neg for the flu. pt reports she has been fever free x 1 week. pt reports no current cp but states, "feels like something is stuck in my throat" pt also reports dizziness Source: patient Exam Limitations: no limitations History of Present Illness Date Seen by Provider: Aug 07, 2018 Time Seen by Provider: 18:05 Initial Comments PT ARRIVES VIA POV FROM [facility] PT STATES SHE HAS BEEN SICK SINCE 07/31/18 STATES SHE STARTED OUT WITH COUGH/CONGESTION AND FEVER UP TO 101.4 COUGH IS OCCASIONALLY PRODUCTIVE STATES SHE HAS NOT HAD A FEVER FOR 1 WEEK STILL WITH COUGH--NOT BETTER STATES SHE HAS HAD SHORTNESS OF BREATH FOR 2 WEEKS, MOSTLY WITH EXERTION NO SWELLING IN LEGS/ FEET OR PAIN IN CALVES WENT TO [facility] ON Saturday08/02/18 FOR THIS PROBLEM. FLU TEST WAS NEGATIVE DX WITH BRONCHITIS AND GIVEN RX FOR LEVAQUIN STATES YESTERDAY AND TODAY SHE HAS BEEN DIZZY HAS HAD NAUSEA AND VOMITED X 1 YESTERDAY WITH THE DIZZINESS-BROKE OUT IN SWEAT RIGHT BEFORE SHE THREW UP, OTHERWISE NO SWEATS. HAS HAD SOME DISCOMFORT IN HER CHEST SINCE YESTERDAY--STATES "IT'S NOT A PAIN, IT FEELS LIKE WHEN FOOD WENT DOWN THE WRONG WAY, OR LIKE A PILL GOT CAUGHT" STATES NO DISCOMFORT NOW, AND STATES IT OCCURS OCCASIONALLY WHEN SHE STANDS UP BUT NOT WHEN SHE LAYS DOWN HAS BEEN BELCHING ALOT SINCE YESTERDAY NO ABDOMINAL PAIN PT HAS CONTINUED TO EAT AND DRINK USUAL AND NO DIFFICULTY SWALLOWIN NO SWELLING IN LEGS/ FEET OR PAIN IN CALVES NO PALPITATIONS HAD SLIGHT HEADACHE EARLIER TODAY BUT NOT NOW HAS NOT TAKEN ANYTHING FOR HER SYMPTOMS PT NORMALLY TAKES PAROXETINE FOR ANXIETY, BUT HAS NOT TAKEN ANY SINCE SHE STARTED ON LEVAQUIN, DUE TO POSSIBLE DRUG INTERACTION NO PRIOR HISTORY OF HEART PROBLEMS --HAS HISTORY OF HTN, NIDDM/"PRE-DIABETIC" NO HISTORY OF SMOKING. NO HISTORY OF RESPIRATORY PROBLEMS NTG SL [address] FOREMAN: No ASA po [address] FOREMAN: No PCP: [facility]--HAS NOT ATTEMPTED TO CONTACT HIM FOR ANY OF THESE ISSUES Allergies and Home Medications Allergies Coded Allergies: Penicillins (Verified Allergy, Unknown, 3/7/19) bee venom protein (honey bee) (Verified Allergy, Unknown, 08/07/18) codeine (Verified Allergy, Unknown, 08/07/18) Review of Systems Review of Systems Constitutional: see HPI, diaphoresis, fever EENTM: No Symptoms Reported Respiratory: See HPI, Cough, SOA With Exertion Cardiovascular: See HPI, Chest Pain; Denies Edema, Denies Irregular Heart Rate ; Lightheadedness; Denies Palpitations, Denies Syncope Gastrointestinal: See HPI; Denies Abdominal Pain; Nausea, Vomiting Genitourinary: No Symptoms Reported Musculoskeletal: no symptoms reported Skin: no symptoms reported Psychiatric/Neurological: See HPI, Headache; Denies Numbness, Denies Paresthesia, Denies Seizure, Denies Tingling, Denies Tremors, Denies Weakness Endocrine: No Symptoms Reported Hematologic/Lymphatic: No Symptoms Reported Past Amadgbk-Bmoeux-Glhwed Hx Patient Social History Alcohol Use: Rarely Uses Recreational Drug Use: No Smoking Status: Never a Smoker Recent Foreign Travel: No Contact w/Someone Who Travel: No Recent Infectious Disease Expo: No Recent Hopitalizations: No Physical Abuse: No Sexual Abuse: No Mistreated: No Fear: No Seasonal Allergies Seasonal Allergies: No Past Medical History Surgeries: Yes (HYST/BSO 2008; APPY 2009) Appendectomy, Hysterectomy, Oophorectomy Respiratory: No Cardiac: Yes Hypertension Neurological: No Reproductive Disorders: Yes (PRECANCEROUS CELLS ON CERVIX--S/P HYST/BSO) 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 oz. 99.659137fg; BMI Method:Stated General Appearance: No Apparent Distress, WD/WN Neck: Full Range of Motion, Normal Inspection, Non Tender, Supple; No Carotid Bruit, No JVD Respiratory: Chest Non Tender, Normal Breath Sounds, No Accessory Muscle Use, No Respiratory Distress Cardiovascular: Regular Rate, Rhythm, No Edema, No JVD, No Murmur, Normal Peripheral Pulses Gastrointestinal: Normal Bowel Sounds, No Organomegaly, No Pulsatile Mass, Non Tender, Soft Extremity: Normal Capillary Refill, Normal Inspection, Normal Range of Motion, Non Tender, No Calf Tenderness, No Pedal Edema Neurologic/Psychiatric: Alert, Oriented x3, No Motor/Sensory Deficits, Normal 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, 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 Norm as Tested Skin: Normal Color, Warm/Dry; No Rash Progress/Results/Core Measures Results/Orders Lab Results Laboratory Tests Test 08/07/18 18:26 Range/Units White Blood Count 9.9 4.3-11.0 10^3/uL Red Blood Count 5.26 4.35-5.85 10^6/uL Hemoglobin 15.3 11.5-16.0 G/DL Hematocrit 45 35-52 % Mean Corpuscular Volume 85 80-99 FL Mean Corpuscular Hemoglobin 29 25-34 PG Mean Corpuscular Hemoglobin Concent 34 32-36 G/DL Red Cell Distribution Width 14.3 10.0-14.5 % Platelet Count 379 130-400 10^3/uL Mean Platelet Volume 8.9 7.4-10.4 FL Neutrophils (%) (Auto) 63 42-75 % Lymphocytes (%) (Auto) 27 12-44 % Monocytes (%) (Auto) 8 0-12 % Eosinophils (%) (Auto) 2 0-10 % Basophils (%) (Auto) 0 0-10 % Neutrophils # (Auto) 6.2 1.8-7.8 X 10^3 Lymphocytes # (Auto) 2.7 1.0-4.0 X 10^3 Monocytes # (Auto) 0.8 0.0-1.0 X 10^3 Eosinophils # (Auto) 0.2 0.0-0.3 10^3/uL Basophils # (Auto) 0.0 0.0-0.1 10^3/uL Prothrombin Time 12.7 12.2-14.7 SEC INR Comment 1.0 0.8-1.4 Activated Partial Thromboplast Time 31 24-35 SEC Sodium Level 142 135-145 MMOL/L Potassium Level 3.7 3.6-5.0 MMOL/L Chloride Level 105 98-107 MMOL/L Carbon Dioxide Level 27 21-32 MMOL/L Anion Gap 10 5-14 MMOL/L Blood Urea Nitrogen 16 7-18 MG/DL Creatinine 1.03 0.60-1.30 MG/DL Estimat Glomerular Filtration Rate 55 BUN/Creatinine Ratio 16 Glucose Level 94 70-105 MG/DL Calcium Level 9.9 8.5-10.1 MG/DL Corrected Calcium 9.7 8.5-10.1 MG/DL Magnesium Level 1.9 1.8-2.4 MG/DL Total Bilirubin 0.3 0.1-1.0 MG/DL Aspartate Amino Transf (AST/SGOT) 22 5-34 U/L Alanine Aminotransferase (ALT/SGPT) 31 0-55 U/L Alkaline Phosphatase 79 40-136 U/L Total Creatine Kinase 40 29-168 U/L Creatine Kinase MB 0.9 <6.6 NG/ML Myoglobin 37.8 10.0-92.0 NG/ML Troponin I < 0.028 <0.028 NG/ML B-Type Natriuretic Peptide < 10.0 <100.0 PG/ML Total Protein 7.4 6.4-8.2 GM/DL Albumin 4.2 3.2-4.5 GM/DL Amylase Level 49 25-125 U/L Lipase 35 8-78 U/L TSH [place] Testing 2.46 0.35-4.94 UIU/ML My Orders Orders - EVANGELISTA PEACOCK DO Cbc With Automated Diff (08/07/18 18:17) Magnesium (08/07/18 18:17) Chest 1 View, Ap/Pa Only (08/07/18 18:17) Ekg Tracing (08/07/18 18:17) Cardiac Profile 1 (08/07/18 18:17) Comprehensive Metabolic Panel (08/07/18 18:17) Myoglobin Serum (08/07/18 18:17) Protime With Inr (08/07/18 18:17) Partial Thromboplastin Time (08/07/18 18:17) O2 (08/07/18 18:17) Monitor-Rhythm Ecg Trace Only (08/07/18 18:17) Lipid Panel (08/08/18 06:00) Aspirin Chewable Tablet (Baby Aspirin Ch (08/07/18 18:30) Saline Lock/Iv-Start (08/07/18 18:17) Creatine Kinase (08/07/18 18:17) Creatine Kinase Mb (08/07/18 18:17) Lipase (08/07/18 18:17) Amylase (08/07/18 18:17) BNP (08/07/18 18:17) Thyroid Analyzer (08/07/18 18:17) Ct Angio Chest W (08/07/18 19:24) Iohexol Injection (Omnipaque 350 Mg/Ml 1 (08/07/18 19:45) Received Contrast (Contrast Received) (08/07/18 19:45) Sodium Chloride Flush (Catheter Flush Sy (08/07/18 19:45) Ns (Ivpb) (Sodium Chloride 0.9% Ivpb Bag (08/07/18 19:45) Medications Given in ED Current Medications Medications Dose Ordered Sig/Tatyana Route Start Time Stop Time Status Last Admin Dose Admin Aspirin 324 mg ONCE ONCE PO 08/07/18 18:30 08/07/18 18:31 DC 08/07/18 18:48 324 MG Iohexol 150 ml ONCE ONCE IV 08/07/18 19:45 08/07/18 19:46 DC 08/07/18 20:49 125 ML Sodium Chloride 10 ml NEEDED PRN IV 08/07/18 19:45 08/07/18 20:49 10 ML Sodium Chloride 100 ml ONCE ONCE IV 08/07/18 19:45 08/07/18 19:46 DC 08/07/18 20:49 100 ML Vital Signs/I&O 08/07/18 08/07/18 18:05 18:09 Temp 98.2 Pulse 75 Resp 20 B/P (MAP) 138/89 (105) Pulse Ox 97 O2 Delivery Room Air Blood Pressure Mean: 105 Progress Progress Note : Progress Note Initial ECG Impression Date: Aug 07, 2018 Initial ECG Impression Time: 18:11 Initial ECG Rate: 69 Initial ECG Rhythm: Normal Sinus Initial ECG Impression: Nonspecific Changes (INFERIOR Q WAVES) Initial ECG Comparisson: No Previous ECG Available Diagnostic Imaging Comments CXR--NO ACUTE PROCESS, PER RADIOLOGIST REPORT @ 1924 CT CHEST ANGIOGRAM--NORMAL. NO P.E. OR OTHER ACUTE PROCESS, PER RADIOLOGIST REPORT @ 2106 Reviewed: Reviewed by Me Departure Impression Primary Impression: Chest pain Departure-Patient Inst. Referrals: NO,LOCAL PHYSICIAN (PCP/Family) Primary Care Physician EVANGELISTA PEACOCK DO Aug 07, 2018 18:30
[2018-08-07 18:37] LABS: BASOPHILS % (AUTO) 0 % (0-10); EOSINOPHILS # (AUTO) 0.2 10^3/uL (0.0-0.3); EOSINOPHILS % (AUTO) 2 % (0-10); HEMATOCRIT 45 % (35-52); HEMOGLOBIN 15.3 G/DL (11.5-16.0); LYMPHOCYTES # (AUTO) 2.7 X 10^3 (1.0-4.0); LYMPHOCYTES % (AUTO) 27 % (12-44); MEAN CORPUSCULAR HEMOGLOBIN 29 PG (25-34); MEAN CORPUSCULAR HGB CONC 34 G/DL (32-36); MEAN CORPUSCULAR VOLUME 85 FL (80-99); MEAN PLATELET VOLUME 8.9 FL (7.4-10.4); MONOCYTES # (AUTO) 0.8 X 10^3 (0.0-1.0); MONOCYTES % (AUTO) 8 % (0-12); NEUTROPHILS # (AUTO) 6.2 X 10^3 (1.8-7.8); NEUTROPHILS % (AUTO) 63 % (42-75); PLATELET COUNT 379 10^3/uL (130-400); RED CELL DISTRIBUTION WIDTH 14.3 % (10.0-14.5); WHITE BLOOD COUNT 9.9 10^3/uL (4.3-11.0)
[2018-08-07 18:51] LABS: PROTHROMBIN TIME PATIENT 12.7 SEC (12.2-14.7)
[2018-08-07 18:58] LABS: ALANINE AMINOTRANSFERASE 31 U/L (0-55); ALBUMIN 4.2 GM/DL (3.2-4.5); ALKALINE PHOSPHATASE 79 U/L (40-136); AMYLASE 49 U/L (25-125); BILIRUBIN,TOTAL 0.3 MG/DL (0.1-1.0); BUN/CREATININE RATIO 16; CALCIUM 9.9 MG/DL (8.5-10.1); CARBON DIOXIDE 27 MMOL/L (21-32); CHLORIDE 105 MMOL/L (98-107); CREATINE KINASE 40 U/L (29-168); CREATININE SERUM 1.03 MG/DL (0.60-1.30); GFR ESTIMATED 55; GLUCOSE 94 MG/DL (70-105); LIPASE 35 U/L (8-78); MAGNESIUM 1.9 MG/DL (1.8-2.4); POTASSIUM 3.7 MMOL/L (3.6-5.0); SODIUM 142 MMOL/L (135-145); TOTAL PROTEIN 7.4 GM/DL (6.4-8.2)
--- NOTE | 2018-08-07 19:01 | Diagnostic Imaging Report ---
INDICATION: Chest pain. COMPARISON: None. FINDINGS: Single frontal view of the chest demonstrates normal heart size and pulmonary vascularity. The lungs are well aerated and clear. No large pleural effusion or pneumothorax is seen. The visualized osseous structures show no acute abnormalities. IMPRESSION: 1. No acute cardiopulmonary process. Dictated by: Dictated on workstation # [id number]
[2018-08-07 19:06] LABS: CREATINE KINASE MB 0.9 NG/ML (<6.6); MYOGLOBIN SERUM 37.8 NG/ML (10.0-92.0)
[2018-08-07] MEDS ORDERED: CATHETER FLUSH 10 ML SYR IV PRN (19:45)
[2018-08-07] MEDS ORDERED: NS 100 ML (IVPB) BAG IV ONE (19:45)
[2018-08-07] MEDS ORDERED: IOHEXOL 350 MG/ML 150 ML (OMNIPAQUE 350) VIAL IV ONE (19:45)
[2018-08-07] MEDS ORDERED: RECEIVED CONTRAST 20 ML VIAL IV SCH (19:45)
--- NOTE | 2018-08-07 20:47 | Diagnostic Imaging Report ---
PROCEDURE: CT angiography of the chest with contrast. TECHNIQUE: Multiple contiguous axial images were obtained through the chest after uneventful bolus administration of intravenous contrast. 2D reconstructed CTA MIP acquisitions were also performed. INDICATION: Chest pain. COMPARISON: None. FINDINGS: There are no intraluminal pulmonary arterial filling defects. There is no pulmonary arterial embolus. The thoracic aorta is patent and nonaneurysmal. No effusion or pneumothorax. No focal pulmonary consolidation. No suspicious lung mass or adenopathy. There is no acute appearing chest wall pathology. The visualized upper abdomen is nonacute. IMPRESSION: Negative for PE or other acute abnormality. Dictated by: Dictated on workstation # [id number]
[2018-08-07] MEDS ORDERED: PANTOPRAZOLE 40 MG (PROTONIX) VIAL IV ONE (21:15)
--- OUTSIDE RECORDS SUMMARY | 2018-08-07 22:14 | XMS REPORT | Continuity of Care Document ---
Author Author [facility] Organization [facility] Address Unknown Phone Unavailable Allergies Active Description Code Type Severity Reaction Onset Reported/Identified Relationship to Patient Clinical Status Yes codeine 1550 1 N/A rash Yes Penicillins 476 3 N/A rash Yes bee venom protein (honey bee) [id number] Drug Allergy Unknown N/A 2018 Yes codeine [id number] Drug Allergy Unknown N/A 08/07/2018 Yes Penicillins [id number] Drug Allergy Unknown N/A 08/07/2018 Medications There is no data. Problems Date Dx Coded Attending Type Code Diagnosis Diagnosed By 12/09/2017 Daniel Wilson MD E66.09 Other obesity due to excess calories 12/09/2017 Daniel Wilson MD F32.5 Major depressive disorder, single episode, in full remission 12/09/2017 Daniel Wilson MD Z68.36 Body Mass Index 36.0-36.9 Adult Procedures There is no data. Results Test Result Range Complete blood count (CBC) with automated white blood cell (WBC) differential - 08/07/18 18:26 Blood leukocytes automated count (number/volume) 9.9 10*3/uL 4.3-11.0 Blood erythrocytes automated count (number/volume) 5.26 10*6/uL 4.35-5.85 Venous blood hemoglobin measurement (mass/volume) 15.3 g/dL 11.5-16.0 Blood hematocrit (volume fraction) 45 % 35-52 Automated erythrocyte mean corpuscular volume 85 [foz_us] 80-99 Automated erythrocyte mean corpuscular hemoglobin (mass per erythrocyte) 29 pg 25-34 Automated erythrocyte mean corpuscular hemoglobin concentration measurement ( mass/volume) 34 g/dL 32-36 Automated erythrocyte distribution width ratio 14.3 % 10.0-14.5 Automated blood platelet count (count/volume) 379 10*3/uL 130-400 Automated blood platelet mean volume measurement 8.9 [foz_us] 7.4-10.4 Automated blood neutrophils/100 leukocytes 63 % 42-75 Automated blood lymphocytes/100 leukocytes 27 % 12-44 Blood monocytes/100 leukocytes 8 % 0-12 Automated blood eosinophils/100 leukocytes 2 % 0-10 Automated blood basophils/100 leukocytes 0 % 0-10 Blood neutrophils automated count (number/volume) 6.2 10*3 1.8-7.8 Blood lymphocytes automated count (number/volume) 2.7 10*3 1.0-4.0 Blood monocytes automated count (number/volume) 0.8 10*3 0.0-1.0 Automated eosinophil count 0.2 10*3/uL 0.0-0.3 Automated blood basophil count (count/volume) 0.0 10*3/uL 0.0-0.1 PT panel in platelet poor plasma by coagulation assay - 08/07/18 18:26 Prothrombin time (PT) in platelet poor plasma by coagulation assay 12.7 s 12.2-14.7 INR in platelet poor plasma or blood by coagulation assay 1.0 0.8-1.4 Activated partial thromboplastin time (aPTT) in platelet poor plasma bycoagulation assay - 08/07/18 18:26 Activated partial thromboplastin time (aPTT) in platelet poor plasma bycoagulation assay 31 s 24-35 Comprehensive metabolic panel - 08/07/18 18:26 Serum or plasma sodium measurement (moles/volume) 142 mmol/L 135-145 Serum or plasma potassium measurement (moles/volume) 3.7 mmol/L 3.6-5.0 Serum or plasma chloride measurement (moles/volume) 105 mmol/L 98-107 Carbon dioxide 27 mmol/L 21-32 Serum or plasma anion gap determination (moles/volume) 10 mmol/L 5-14 Serum or plasma urea nitrogen measurement (mass/volume) 16 mg/dL 7-18 Serum or plasma creatinine measurement (mass/volume) 1.03 mg/dL 0.60-1.30 Serum or plasma urea nitrogen/creatinine mass ratio 16 NRG Serum or plasma creatinine measurement with calculation of estimated glomerular filtration rate 55 NRG Serum or plasma glucose measurement (mass/volume) 94 mg/dL 70-105 Serum or plasma calcium measurement (mass/volume) 9.9 mg/dL 8.5-10.1 Serum or plasma total bilirubin measurement (mass/volume) 0.3 mg/dL 0.1-1.0 Serum or plasma alkaline phosphatase measurement (enzymatic activity/volume) 79 U/L 40-136 Serum or plasma aspartate aminotransferase measurement (enzymatic activity/ volume) 22 U/L 5-34 Serum or plasma alanine aminotransferase measurement (enzymatic activity/volume ) 31 U/L 0-55 Serum or plasma protein measurement (mass/volume) 7.4 g/dL 6.4-8.2 Serum or plasma albumin measurement (mass/volume) 4.2 g/dL 3.2-4.5 CALCIUM CORRECTED 9.7 mg/dL 8.5-10.1 Magnesium - 08/07/18 18:26 Magnesium 1.9 mg/dL 1.8-2.4 Serum or plasma creatine kinase measurement (enzymatic activity/volume) - 08/07 18:26 Serum or plasma creatine kinase measurement (enzymatic activity/volume) 40 U/L 29-168 Serum or plasma creatine kinase MB measurement (enzymatic activity/volume) - 18:26 Serum or plasma creatine kinase MB measurement (enzymatic activity/volume) 0.9 ng/mL <6.6 Serum or plasma troponin i.cardiac measurement (mass/volume) - 08/07/18 18:26 Serum or plasma troponin i.cardiac measurement (mass/volume) < ng/ mL <0.028 Myoglobin, serum - 08/07/18 18:26 Myoglobin, serum 37.8 ng/mL 10.0-92.0 Serum or plasma amylase measurement (enzymatic activity/volume) - 08/07/18 18: 26 Serum or plasma amylase measurement (enzymatic activity/volume) 49 U /L 25-125 Lipase - 08/07/18 18:26 Lipase 35 U/L 8-78 Serum or plasma lithium measurement (moles/volume) - 08/07/18 18:26 BNP level < pg/mL <100.0 Serum or plasma thyrotropin measurement by detection limit <=0.05 miu/l (units/ volume) - 08/07/18 18:26 Serum or plasma thyrotropin measurement by detection limit <=0.05 miu/l (units/ volume) 2.46 u[iU]/mL 0.35-4.94 Encounters ACCT No. Visit Date/Time Discharge Status Pt. Type Provider Facility Loc./Unit Complaint [id number] 07/04/2018 20:01:21 ACT Unknown Daniel Wilson MD [id number] 11/27/2017 12:35:00 11/27/2017 23:59:59 CLS Outpatient Mary Haywood [id number] 11/27/2017 10:21:00 11/27/2017 23:59:59 CLS Outpatient Mary Haywood [id number] 11/14/2017 12:31:00 11/14/2017 23:59:59 CLS Outpatient Alvin Larsen [id number] 11/14/2017 11:00:00 11/14/2017 23:59:59 CLS Outpatient Mary Haywood [id number] 04/23/2017 13:04:00 04/23/2017 23:59:59 CLS Outpatient Mary Haywood [id number] 11/15/2016 11:37:00 11/15/2016 23:59:59 CLS Outpatient Mary Haywood [id number] 11/13/2016 11:00:00 11/13/2016 23:59:59 CLS Outpatient Mary Haywood [id number] 11/22/2015 09:47:00 11/22/2015 23:59:59 CLS Outpatient Mary Haywood [id number] 11/18/2015 09:10:00 11/18/2015 23:59:59 CLS Outpatient Mary Haywood [id number] 12/13/2017 03:37:11 ACT Document Registration [id number] 08/07/2018 21:56:00 ACT Inpatient JOE SMALLS DO Via [facility] ICU CHEST PAIN
[2018-08-07 22:32] VITALS: BP 114/78
[2018-08-07 22:45] VITALS: BP 118/78
[2018-08-07 23:00] VITALS: BP 118/78
[2018-08-07] MEDS ORDERED: NITROGLYCERIN 0.4 MG SL TABS BTL 25'S SL PRN (23:00)
[2018-08-07] MEDS ORDERED: morphine INJ 4 MG/ML 1 ML (VIAL/SYRINGE) IV PRN (23:00)
[2018-08-07 23:15] VITALS: BP 126/83
[2018-08-08] VITALS (10 sets, daily range): BP systolic 90–109; BP diastolic 51–82
[2018-08-08 00:40] LABS: BILIRUBIN,URINE NEGATIVE (NEGATIVE); CLARITY,URINE CLEAR; COLOR,URINE YELLOW; GLUCOSE, URINE (UA) NEGATIVE (NEGATIVE); KETONES,URINE NEGATIVE (NEGATIVE); LEUKOCYTE ESTERASE ,URINE 1+ (NEGATIVE); NITRITE,URINE NEGATIVE (NEGATIVE); PH,URINE 5 (5-9); PROTEIN,URINE 2+ (NEGATIVE); UROBILINOGEN,URINE NORMAL (NORMAL)
[2018-08-08 00:56] LABS: BACTERIA,URINE NEGATIVE /HPF; WBC,URINE RARE /HPF
[2018-08-08 03:33] LABS: BASOPHILS % (AUTO) 0 % (0-10); EOSINOPHILS # (AUTO) 0.2 10^3/uL (0.0-0.3); EOSINOPHILS % (AUTO) 2 % (0-10); HEMATOCRIT 42 % (35-52); HEMOGLOBIN 14.4 G/DL (11.5-16.0); LYMPHOCYTES # (AUTO) 2.6 X 10^3 (1.0-4.0); LYMPHOCYTES % (AUTO) 26 % (12-44); MEAN CORPUSCULAR HEMOGLOBIN 29 PG (25-34); MEAN CORPUSCULAR HGB CONC 34 G/DL (32-36); MEAN CORPUSCULAR VOLUME 86 FL (80-99); MEAN PLATELET VOLUME 9.3 FL (7.4-10.4); MONOCYTES % (AUTO) 11 % (0-12); NEUTROPHILS % (AUTO) 61 % (42-75); PLATELET COUNT 347 10^3/uL (130-400); RED CELL DISTRIBUTION WIDTH 14.2 % (10.0-14.5); WHITE BLOOD COUNT 9.8 10^3/uL (4.3-11.0)
[2018-08-08 03:51] LABS: ALBUMIN 3.9 GM/DL (3.2-4.5); BILIRUBIN,TOTAL 0.3 MG/DL (0.1-1.0); CALCIUM 10.1 MG/DL (8.5-10.1); CREATININE SERUM 1.11 MG/DL (0.60-1.30); TOTAL PROTEIN 6.8 GM/DL (6.4-8.2)
[2018-08-08] MEDS ORDERED: FLU QUADRIvalent (5+ YOA) 2018-2019 (AFLURIA) 0.5 ML IM ONE ×2 (07:30→10:58)
[2018-08-08] MEDS ORDERED: PANTOPRAZOLE 40 MG (PROTONIX) VIAL IV SCH (09:00)
[2018-08-08] MEDS ORDERED: ASPIRIN E.C. 81 MG (ECOTRIN) TAB PO SCH (09:00)
[2018-08-08] MEDS ORDERED: LUTE20TA PO (09:17)
[2018-08-08] MEDS ORDERED: CALC-654 PO (09:17)
[2018-08-08] MEDS ORDERED: ASCO-262 PO (09:17)
[2018-08-08] MEDS ORDERED: TRAV5DRO OU (09:17)
[2018-08-08] MEDS ORDERED: MULT1TAB69 PO (09:17)
[2018-08-08] MEDS ORDERED: FERR-84 PO (09:17)
[2018-08-08] MEDS ORDERED: GUAI5SYR PO (09:18)
--- NOTE | 2018-08-08 09:20 | NUR ---
WENT OVER THE EXT MED HX WITH THE PATIENT, SHE VERIFIED HOW SHE TAKES EACH MEDICATION. SHE TAKES THE FOLLOWING OTC: VITAMIN C DAILY LUTEIN DAILY IRON HS CALCIUM DAILY MTV HS ROBITUSSIN DM PRN
--- NOTE | 2018-08-08 09:30 | Consultation-Cardiology ---
HPI-Cardiology Cardiology Consultation: Date of Consultation 08/08/18 Time Seen by a Provider: 09:00 Date of Admission Attending Physician Peggy Adrian DO Admitting Physician No,Local Physician Consulting Physician RAFIQ PABLO MD, MA, FACP, FACC, [facility] [place] CCDS Physician requesting consult: Dr Adrian HPI: Chief Complaint: CC: Cough, dizziness 58 yo woman with two weeks of a feeling of chest and sinus congestion and gen malaise. Has had continual cough for the last two, considerably worse in the last 2 days. Has had dizziness for the last two days. Has had a feeling of chest discomfort: soreness in the L and R upper parasternum, mild, w/o radiation , somewhat worse during bouts of coughging, no other aggravating of relieving factors, continuous for 24-48 hours, not experienced before, better today ( after improvement of cough). Went to Urgent Care. Was sent to ER. Was admitted to Dr Adrian. We have been asked to see for chest discomfort. Review of Systems-Cardiology Review of Systems Constitutional: malaise, tiredness; No weight loss, No weight gain Eyes: No vision change Ears/Nose/Throat: No ear discharge, No nasal drainage, No recent hearing loss Respiratory: As described under HPI Cardiovascular: As described under HPI Gastrointestinal: No constipation, No diarrhea, No vomiting Genitourinary: No dysuria, No hematuria, No urine frequency changes Musculoskeletal: No back pain, No joint pain Skin: No rash, No ulcerations Psychiatric/Neurological: No seizure, No focal weakness, No syncope Hematologic: No bleeding abnormalities [id number] Hx Patient Social History Alcohol Use: Rarely Uses Recreational Drug Use: No Smoking Status: Never a Smoker Recent Foreign Travel: No Recent Infectious Disease Expo: No Past Medical History PMH As described under Assessment. Family Medical History Family Medical History: Father suddenly of suspected CV causes at age 72 Family History: Cardiovascular disease 19 FATHER, 19 MOTHER Diabetes mellitus 19 FATHER, G8 BROTHER G8 SISTER Hypertension 19 FATHER, 19 MOTHER G8 BROTHER G8 SISTER Hypoglycemia 19 MOTHER Allergies and Home Medications Allergies Coded Allergies: Penicillins (Verified Allergy, Unknown, 08/07/18) bee venom protein (honey bee) (Verified Allergy, Unknown, 08/07/18) codeine (Verified Allergy, Unknown, 08/07/18) Home Medications Ascorbate Calcium 500 Mg Tablet, 500 MG PO DAILY, (Reported) Calcium Carbonate/Vitamin D3 1 Each Tablet, 1 TAB PO DAILY, (Reported) Diltiazem HCl 240 Mg Cap.er.24h, 240 MG PO DAILY, (Reported) Ergocalciferol (Vitamin D2) 50,000 Unit Capsule, 50,000 UNITS PO Sa, (Reported) Ferrous Sulfate 325 Mg Tablet, 325 MG PO HS, (Reported) Guaifenesin/Dextromethorphan 5 Ml Syrup, 5 ML PO Q4H PRN for COUGH, (Reported) Levofloxacin 750 Mg Tablet, 750 MG PO DAILY, (Reported) 7 DAY SUPPLY FILLED 08-02-18 Lisinopril/Hydrochlorothiazide 1 Each Tablet, 1 TAB PO DAILY, (Reported) Lutein 20 Mg Tablet, 20 MG PO DAILY, (Reported) Metformin HCl 500 Mg Tab.er.24h, 500 MG PO BID, (Reported) Multivitamin 1 Each Tablet, 1 TAB PO HS, (Reported) Paroxetine HCl 20 Mg Tablet, 20 MG PO DAILY, (Reported) Travoprost 5 Ml Drops, 1 DROP OU HS, (Reported) Patient Home Medication List Home Medication List Reviewed: Yes Physical Exam-Cardiology Physical Exam Vital Signs/I&O 08/07/18 08/07/18 08/07/18 08/07/18 22:09 22:30 22:32 22:32 Temp 97.1 98.0 Pulse 71 72 71 Resp 18 16 B/P (MAP) 131/82 (98) 114/78 (90) Pulse Ox 100 99 99 O2 Delivery Room Air Room Air Room Air 08/07/18 08/07/18 08/07/18 08/08/18 22:45 23:00 23:15 00:00 Temp 98.0 Pulse 73 67 88 Resp 12 12 12 B/P (MAP) 118/78 (91) 118/78 (91) 126/83 (97) Pulse Ox 99 99 98 99 O2 Delivery Room Air Room Air Room Air Room Air 08/08/18 08/08/18 08/08/18 08/08/18 00:05 00:30 01:00 01:00 Pulse 78 76 70 69 Resp 9 15 8 B/P (MAP) 104/69 (81) 101/82 (88) 102/72 (82) Pulse Ox 99 96 96 O2 Delivery Room Air Room Air Room Air 08/08/18 08/08/18 08/08/18 08/08/18 01:30 02:00 03:03 03:44 Temp 99.0 Pulse 68 79 65 Resp 10 15 22 B/P (MAP) 92/69 (77) 107/63 (78) 90/59 (69) Pulse Ox 95 96 94 O2 Delivery Room Air Room Air Room Air 08/08/18 08/08/18 08/08/18 08/08/18 04:00 04:12 05:00 06:00 Pulse 63 62 63 Resp 18 12 17 B/P (MAP) 95/51 (66) 99/71 (80) 99/71 (80) Pulse Ox 99 96 95 95 O2 Delivery Room Air Room Air Room Air Room Air 08/08/18 08:30 Temp 98.1 Pulse 67 Resp 20 B/P (MAP) 109/71 (84) Pulse Ox 99 O2 Delivery Room Air Capillary Refill : Less Than 3 Seconds Constitutional: AAO x 3, well-developed, well-nourished HEENT: EOMI, hearing is well preserved; No xanthelasmas are seen Neck: No carotid bruit; carotid pulses are 2 + bilaterally, with good upstrokes Respiratory: No accessory muscle use; lungs clear to percussion, lungs clear to auscultation Cardiovascular: regular rate-rhythm, S1 and S2, systolic murmur (faint CELSO at card base) Gastrointestinal: No tender; soft; No guarding, No rebound; audible bowel sounds Extremities: No clubbing, No cyanosis, No significant edema Neurologic/Psychiatric: oriented x 3, grossly intact, power is 5/5 both on sides Skin: No rash on exposed areas, No ulcerations on exposed areas Data Review Labs Laboratory Tests 08/07/18 18:26: White Blood Count 9.9, Red Blood Count 5.26, Hemoglobin 15.3, Hematocrit 45, Mean Corpuscular Volume 85, Mean Corpuscular Hemoglobin 29, Mean Corpuscular Hemoglobin Concent 34, Red Cell Distribution Width 14.3, Platelet Count 379, Mean Platelet Volume 8.9, Neutrophils (%) (Auto) 63, Lymphocytes (%) (Auto) 27, Monocytes (%) (Auto) 8, Eosinophils (%) (Auto) 2, Basophils (%) (Auto) 0, Neutrophils # (Auto) 6.2, Lymphocytes # (Auto) 2.7, Monocytes # (Auto) 0.8, Eosinophils # (Auto) 0.2, Basophils # (Auto) 0.0, Prothrombin Time 12.7, INR Comment 1.0, Activated Partial Thromboplast Time 31, Sodium Level 142, Potassium Level 3.7, Chloride Level 105, Carbon Dioxide Level 27, Anion Gap 10, Blood Urea Nitrogen 16, Creatinine 1.03, Estimat Glomerular Filtration Rate 55, BUN/Creatinine Ratio 16, Glucose Level 94, Calcium Level 9.9, Corrected Calcium 9.7, Magnesium Level 1.9, Total Bilirubin 0.3, Aspartate Amino Transf (AST/SGOT ) 22, Alanine Aminotransferase (ALT/SGPT) 31, Alkaline Phosphatase 79, Total Creatine Kinase 40, Creatine Kinase MB 0.9, Myoglobin 37.8, Troponin I < 0.028, B-Type Natriuretic Peptide < 10.0, Total Protein 7.4, Albumin 4.2, Amylase Level 49, Lipase 35, TSH [place] Testing 2.46 08/08/18 00:10: Urine Color YELLOW, Urine Clarity CLEAR, Urine pH 5, Urine Specific [place] 1.010L, Urine Protein 2+H, Urine Glucose (UA) NEGATIVE, Urine Ketones NEGATIVE, Urine Nitrite NEGATIVE, Urine Bilirubin NEGATIVE, Urine Urobilinogen NORMAL, Urine Leukocyte Esterase 1+H, Urine RBC (Auto) NEGATIVE, Urine RBC NONE, Urine WBC RARE, Urine Squamous Epithelial Cells 5-10, Urine Crystals NONE, Urine Bacteria NEGATIVE, Urine Casts NONE, Urine Mucus SMALLH, Urine Culture Indicated NO 08/08/18 00:55: Troponin I < 0.028 08/08/18 03:05: White Blood Count 9.8, Red Blood Count 4.95, Hemoglobin 14.4, Hematocrit 42, Mean Corpuscular Volume 86, Mean Corpuscular Hemoglobin 29, Mean Corpuscular Hemoglobin Concent 34, Red Cell Distribution Width 14.2, Platelet Count 347, Mean Platelet Volume 9.3, Neutrophils (%) (Auto) 61, Lymphocytes (%) (Auto) 26, Monocytes (%) (Auto) 11, Eosinophils (%) (Auto) 2, Basophils (%) (Auto) 0, Neutrophils # (Auto) 6.0, Lymphocytes # (Auto) 2.6, Monocytes # (Auto) 1.0, Eosinophils # (Auto) 0.2, Basophils # (Auto) 0.0, Sodium Level 142, Potassium Level 4.0, Chloride Level 105, Carbon Dioxide Level 25, Anion Gap 12, Blood Urea Nitrogen 17, Creatinine 1.11, Estimat Glomerular Filtration Rate 51, BUN/ Creatinine Ratio 15, Glucose Level 97, Calcium Level 10.1, Corrected Calcium 10.2H, Total Bilirubin 0.3, Aspartate Amino Transf (AST/SGOT) 22, Alanine Aminotransferase (ALT/SGPT) 26, Alkaline Phosphatase 88, Total Protein 6.8, Albumin 3.9, Triglycerides Level 198H, Cholesterol Level 168, LDL Cholesterol Direct 87, VLDL Cholesterol 40, HDL Cholesterol 56 Laboratory Tests 08/07/18 18:26 08/08/18 03:05 A/P-Cardiology Assessment/Admission Diagnosis Nonspecific chest discomfort w/o any evidence of ACS, likely due to incessant cough for several days URI and/or UTI, managed by Dr Adrian Cough, managed by Dr Adrian Hypertension Borderline DM II vs IFG, managed bu pcp Elevated BMI of approx 34.5 H/o hypothyroidism (etiology unknown to patient) treated with thyroid replacement therapy, managed by pcp Discussion and Recomendations * She does not have any evidence of ACS. Does have cardiac risk factors * We discussed management of risk factors * We recommend cor risk strat once improved form current UTI / URI and cough * Outpt f/u advised * Ok to d/c from card standpoint * Advised to return to ER in case of recurrent or new symptoms or worsening of symptoms Clinical Quality Measures AMI/AHF: ASA po Prior to arrival: No DVT/VTE Risk/Contraindication: Risk Factor Score Per Nursin RFS Level Per Nursing on Admit: 2=Moderate RAFIQ PABLO MD FACP FAC CCDS Aug 08, 2018 09:30
--- NOTE | 2018-08-08 10:27 | Short Stay Summary-Hospitalist ---
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 She is much improved less coughing no shortness of breath and cardiology reviewed the case and found the patient to be stable from the discharge standpoint with close follow-up to evaluate and further risk stratify. Source: patient, RN/MD Exam Limitations: no limitations Date Seen 08/08/18 Time Seen by a Provider: 10:15 Attending Physician Peggy Adrian DO PCP No,Local Physician Referring Physician Date of Admission Aug 07, 2018 at 21:56 Home Medications & Allergies Home Medications Reviewed patient Home Medication Reconciliation performed by pharmacy medication reconciliations environmental engineering technician and/or nursing. Patients Allergies have been reviewed. Allergies Allergies Coded Allergies Penicillins (Verified Allergy, Unknown, 08/07/18) bee venom protein (honey bee) (Verified Allergy, Unknown, 08/07/18) codeine (Verified Allergy, Unknown, 08/07/18) Past [id number]-[id number]-Ztdntw Hx Past Med/Social Hx: Reviewed Nursing Past Med/Soc Hx, Reviewed and Corrections made Patient Social History Marrital Status: Alcohol Use: Rarely Uses Recreational Drug Use: No Smoking Status: Never a Smoker Recent Foreign Travel: No Contact w/other who traveled: No Recent Hopitalizations: No Recent Infectious Disease Expo: No Seasonal Allergies Seasonal Allergies: No Past Medical History Surgeries: Appendectomy, Hysterectomy, Oophorectomy Cardiac: Hypertension Reproductive: Yes (PRECANCEROUS CELLS ON CERVIX--S/P HYST/BSO) Hysterectomy Endocrine: Hypothyroidsim, Diabetes, Non-Insulin dep What Type of Treatment Did You: Surgical Intervention Psychosocial: Anxiety, Depression History of Blood Disorders: No Family History Cardiovascular disease 19 FATHER, 19 MOTHER Diabetes mellitus 19 FATHER, G8 BROTHER G8 SISTER Hypertension 19 FATHER, 19 MOTHER G8 BROTHER G8 SISTER Hypoglycemia 19 MOTHER Review of Systems Constitutional: see HPI EENTM: no symptoms reported Respiratory: cough, dyspnea on exertion Cardiovascular: chest pain Gastrointestinal: no symptoms reported Genitourinary: no symptoms reported Musculoskeletal: no symptoms reported Skin: no symptoms reported Psychiatric/Neurological: No Symptoms Reported All Other Systems Reviewed Negative Unless Noted: Yes Physical Exam Physical Exam Vital Signs Vital Signs - First Documented 08/07/18 08/07/18 18:05 18:09 Temp 98.2 Pulse 75 Resp 20 B/P (MAP) 138/89 (105) Pulse Ox 97 O2 Delivery Room Air Capillary Refill : Less Than 3 Seconds Height, Weight, BMI Height: 5'7.00" Weight: 220lbs. 3.0oz. [id number]; 34.5 BMI Method:Stated General Appearance: No Apparent Distress, WD/WN, Chronically ill Eyes: Bilateral Eye Normal Inspection, Bilateral Eye PERRL HEENT: PERRL/EOMI, Normal ENT Inspection, Pharynx Normal Neck: Full Range of Motion, Normal Inspection, Non Tender, Supple; No Carotid Bruit, No JVD Respiratory: Chest Non Tender, Lungs Clear, Normal Breath Sounds, No Accessory Muscle Use, No Respiratory Distress Cardiovascular: Regular Rate, Rhythm, No Edema, No JVD, No Murmur, Normal Peripheral Pulses Gastrointestinal: Normal Bowel Sounds, No Organomegaly, No Pulsatile Mass, Non Tender, Soft Back: Normal Inspection, No CVA Tenderness, No Vertebral Tenderness Extremity: Normal Capillary Refill, Normal Inspection, Normal Range of Motion, Non Tender, No Calf Tenderness, No Pedal Edema Neurologic/Psychiatric: Alert, Oriented x3, No Motor/Sensory Deficits, Normal Mood/Affect, craps manager II-XII Norm as Tested Skin: Normal Color, Warm/Dry; No Rash Lymphatic: No Adenopathy Results Results/Procedures Labs Laboratory Tests 08/07/18 18:26 08/08/18 03:05 Patient resulted labs reviewed. Short Stay Diagnosis Discharge Diagnosis-Short Stay Admission Diagnosis Chest pain Recent upper respiratory illness Severe cough refractory Final Discharge Diagnosis Chest pain Recent upper respiratory illness Severe cough refractory Conclusion Plan Resume home meds Discharge home Close follow-up with primary care provider Diagnosis/Problems Diagnosis/Problems (1) Chest pain Status: Acute Qualifiers: Qualified Codes: R07.9 - Chest pain, unspecified Clinical Quality Measures AMI/AHF: ASA po Prior to arrival: No DVT/VTE Risk/Contraindication: Risk Factor Score Per Nursin RFS Level Per Nursing on Admit: 2=Moderate PEGGY ADRIAN DO Aug 08, 2018 10:27
[2018-08-08] MEDS ORDERED: METF500T8 PO (10:32)
[2018-08-08] MEDS ORDERED: ASPI-983 PO (10:32)
== END 2018-08-08 10:32 | disposition home or self-care (01) ==
LOC: ER 18:06 → ICU 21:56 → UNDOADMOB 21:56 → ICU 22:09 → UNDODISOB 08-08 10:50
PROVIDERS: ADMIT Internal Medicine; ATTEND Internal Medicine
DX: R07.9 Chest pain, unspecified (principal); R05 Cough; I10 Essential (primary) hypertension; E11.9 Type 2 diabetes mellitus without complications; E03.9 Hypothyroidism, unspecified; F41.9 Anxiety disorder, unspecified; F32.9 Major depressive disorder, single episode, unspecified; Z79.84 Long term (current) use of oral hypoglycemic drugs; Z79.899 Other long term (current) drug therapy
CPT/HCPCS: 36415; 71045; 71275; 80053; 80061; 81000; 82150; 82550; 82553; 83690; 83735; 83874; 83880; 84443; 84484; 85025; 85610; 85730; 90471; 90686; 93005; 93041